=== PATIENT | female | born 1945 | race Caucasian/White ===

== ENCOUNTER 2020-03-16 09:50 | Emergency (ER) | payer MEDICARE, BC ==
--- NOTE | 2020-03-16 10:39 | EDM.PDOC ---
ED HPI GENERAL MEDICAL PROBLEM - General Chief Complaint: General Stated Complaint: FALL Time Seen by Provider: 03/16/20 09:50 Source of Information: Reports: EMS, EMS Notes Reviewed History Limitations: Reports: Altered Mental Status (pt has dementia and is a poor historian per EMS and nursing personnel ) - History of Present Illness INITIAL COMMENTS - FREE TEXT/NARRATIVE: Patient comes into the emergency department via EMS after sustaining a fall at assisted living. Patient is a resident at the local assisted living and was found to be lying on the ground by staff members this morning. It is unknown amount of time the patient was laying on the ground however they did notice that she had a large hematoma over her right eye. They ended up calling EMS for further evaluation investigation. Nursing personnel on scene state that the patient's cognition is at her baseline and they did not feel that her cognition was of any different however the significant amount of facial trauma was concerning. The patient smiles and nods and answers questions but not appropriate at times. Patient denies any pain or concerns. Patient does not elicit any pain facial symptoms when assessing. She states she has been healthy and has not had any COVID-19 symptoms. Nursing personnel state that they do regularly testing and she has not tested positive nor has she been around any other individuals that have been positive Onset: Sudden Quality: Reports: Other Improves with: Reports: None Worsens with: Reports: None Context: Reports: Trauma Associated Symptoms: Reports: No Other Symptoms Left Head Pain Score (Numeric/FACES): 5 ED ROS GENERAL - Review of Systems Review Of Systems: Unable To Obtain Reason Not Obtained: unsure if history presented via patient is accurate Constitutional: Reports: No Symptoms HEENT: Reports: No Symptoms Respiratory: Reports: No Symptoms Cardiovascular: Reports: No Symptoms Endocrine: Reports: No Symptoms GI/Abdominal: Reports: No Symptoms : Reports: No Symptoms Musculoskeletal: Reports: No Symptoms Skin: Reports: No Symptoms Neurological: Reports: No Symptoms Psychiatric: Reports: No Symptoms Hematologic/Lymphatic: Reports: No Symptoms Immunologic: Reports: No Symptoms ED EXAM, GENERAL - Physical Exam Exam: See Below Exam Limited By: No Limitations General Appearance: Alert, WD/WN, No Apparent Distress Eye Exam: Right Eye: Abnormal Pupil (unable to assess due to eye swelling), EOMI (unable to assess due to eye swelling), PERRL (unable to assess due to eye swelling) Ears: Normal External Exam, Normal Canal, Hearing Grossly Normal, Normal TMs Nose: Normal Inspection, Normal Mucosa Throat/Mouth: Normal Inspection, Normal Lips, Normal Teeth, No Airway Compromise Head: Atraumatic, Normocephalic Neck: Normal Inspection, Supple, Non-Tender, Full Range of Motion Respiratory/Chest: No Respiratory Distress, Lungs Clear, Normal Breath Sounds, No Accessory Muscle Use, Chest Non-Tender Cardiovascular: Normal Peripheral Pulses, Regular Rate, Rhythm Peripheral Pulses: 4+: Radial (L), Radial (R), Dorsalis Pedis (L), Dorsalis Pedis (R) GI/Abdominal: Normal Bowel Sounds, Soft, Non-Tender, No Abnormal Bruit Back Exam: Normal Inspection, Full Range of Motion Extremities: Normal Inspection, Normal Range of Motion, Non-Tender, No Pedal Edema, Normal Capillary Refill Neurological: Alert, CN II-XII Intact Psychiatric: Normal Affect, Normal Mood Skin Exam: Warm, Dry, Intact, Normal Color Course - Vital Signs Last Recorded V/S: Last Vital Signs Temp 37.2 C 03/16/20 10:00 Pulse 94 03/16/20 10:00 Resp 16 03/16/20 10:00 BP 151/89 H 03/16/20 10:00 Pulse Ox 99 03/16/20 10:00 - Orders/Labs/Meds Orders: Active Orders 24 hr Category Date Time Status COMPREHENSIVE METABOLIC PN,CMP [CHEM] Stat Lab 03/16/20 10:48 Received CREATINE KINASE,CK [CHEM] Stat Lab 03/16/20 10:48 Received PRO B-TYPE NATRIUR PEPT,BNPPRO [CHEM] Stat Lab 03/16/20 10:48 Received TROPONIN I [CHEM] Stat Lab 03/16/20 10:48 Received Labs: Laboratory Tests 03/16/20 03/16/20 Range/Units 10:48 10:48 WBC 6.6 (4.0-10.0) x10^3/uL RBC 4.04 (4.00-5.50) x10^6/uL Hgb 12.2 (12.0-16.0) g/dL Hct 36.3 (33.0-47.0) % MCV 89.9 (78.0-93.0) fL MCH 30.2 (26.0-32.0) pg MCHC 33.6 (32.0-36.0) g/dL RDW Coeff of Romero 13.7 (10.0-15.0) % Plt Count 188 (130-400) x10^3/uL Neut % (Auto) 78.7 (50.0-80.0) % Lymph % (Auto) 12.5 L (25.0-50.0) % [place] % (Auto) 8.6 (2.0-11.0) % Eos % (Auto) 0.2 (0.0-4.0) % Baso % (Auto) 0.0 L (0.2-1.2) % PT 9.9 (9.5-12.3) SEC INR 0.9 L (2.0-3.5) Departure - Departure Time of Disposition: 11:35 Disposition: Home, Self-Care 01 Condition: Good Clinical Impression: Fall Qualifiers: Encounter type: initial encounter Qualified Code(s): W19.XXXA - Unspecified fall, initial encounter - Discharge Information *PRESCRIPTION DRUG MONITORING PROGRAM REVIEWED*: Not Applicable *COPY OF PRESCRIPTION DRUG MONITORING REPORT IN PATIENT DON: Not Applicable Instructions: Fall Prevention in the Home, Adult, [id number] Referrals: Kristal Baez MD [Primary Care Provider] - Forms: ED Department Discharge Additional Instructions: 1. rest 2. increase your water intake 3. Continue all at home medications 4. Activity and diet as tolerated 5. Can take over the counter Tylenol for any pain or discomfort 6. Follow up with PCP if symptoms continue, return, or progress 7. Call with any questions or concerns Sepsis Event Note (ED) - Focused Exam Vital Signs: Vital Signs Temp Pulse Resp BP Pulse Ox 03/16/20 10:00 37.2 C 94 16 151/89 H 99 - My Orders Last 24 Hours: My Active Orders 03/16/20 10:48 COMPREHENSIVE METABOLIC PN,CMP [CHEM] Stat CREATINE KINASE,CK [CHEM] Stat PRO B-TYPE NATRIUR PEPT,BNPPRO [CHEM] Stat TROPONIN I [CHEM] Stat - Assessment/Plan Last 24 Hours: My Active Orders 03/16/20 10:48 COMPREHENSIVE METABOLIC PN,CMP [CHEM] Stat CREATINE KINASE,CK [CHEM] Stat PRO B-TYPE NATRIUR PEPT,BNPPRO [CHEM] Stat TROPONIN I [CHEM] Stat Assessment:: 1. fall Plan: 1. CT- head completed in the emergency department results reviewed with the patient 2. Ice Applied to the affected limb 3. Labs completed in the ER 4. Education regarding splinting, activity, [id number] medications, and follow-up care provided. 5. All questions and concerns addressed with the patient prior to discharge
--- NOTE | 2020-03-16 10:56 | CT ---
[id number] CT/CT Head WO IV EXAM: CT Head WO IV CLINICAL DATA: FALL. COMPARISON STUDY: None FINDINGS: No intracranial hemorrhage, extra-axial fluid collection, mass, or acute ischemia. Generalized parenchymal atrophy with scattered areas of nonspecific white matter disease, commonly seen as sequela of chronic microvascular ischemia. Large right frontal and periorbital hematoma without underlying fracture. Paranasal sinuses and mastoid air cells are clear. IMPRESSION: No acute intracranial findings. Anthony Talamantes DO 03/16/20 1058 Thank you for allowing us to participate in the care of your patient.
[2020-03-16 11:22] LABS: CHLORIDE,CL 98 mmol/L (98-107); SODIUM,NA 135 mmol/L (136-145)
[2020-03-16 11:38] LABS: ANION GAP 15.6 mmol/L (10-20)
== END 2020-03-16 11:50 | disposition home or self-care (01) ==
LOC: VM.ED 09:50
DX: R41.82 Altered mental status, unspecified (principal); R51.9 Headache, unspecified; W19.XXXA Unspecified fall, initial encounter; Y92.098 Other place in other non-institutional residence as the place of occurrence of the external cause
CPT/HCPCS: 36415; 70450; 80053; 82550; 83880; 84484; 85025; 85610; 99283; 99284-25

== ENCOUNTER 2020-03-16 21:09 | Inpatient (IN) | payer MEDICARE, BC ==
[2020-03-16] MEDS ORDERED: Sodium Chloride 0.9% 1,000 ML IV ONE (21:17)
--- NOTE | 2020-03-16 21:45 | EDM.PDOC ---
ED HPI GENERAL MEDICAL PROBLEM - General Chief Complaint: General Stated Complaint: UNABLE TO WALK,STAND Time Seen by Provider: 03/16/20 21:09 Source of Information: Reports: Patient History Limitations: Reports: Altered Mental Status - History of Present Illness INITIAL COMMENTS - FREE TEXT/NARRATIVE: Patient comes into the emergency department via EMS with concerns of decreased alertness and inability to walk or ambulate. Patient was in the emergency department earlier today after sustaining a fall with unknown amount of downtime. Patient was found to be ambulatory talking upon discharge no injuries were delineated at the emergency visit earlier other than a large hematoma over the right eye. Nursing staff stated this evening when they went to check on her they found that she was unable to ambulate she was sitting in a chair and had increased amount of confusion and alertness compared to her normal baseline confusion related to her dementia. They also state that she was unable to stand up and had tremors. They were more concerned with her decrease in alertness and inability to ambulate on her own as she was doing earlier in the day they found. Patient is a poor historian and does not provide much information upon arrival to the emergency department. Patient does grimace and pain when transferring from the ambulance cot to the bed. Patient does not answer questions appropriate does follow some commands at times. And will answer some questions but is not reliable or consistent. Onset: Unknown/Unsure Improves with: Reports: None Worsens with: Reports: None Associated Symptoms: Reports: Confusion - Related Data Allergies Allergy/AdvReac Type Severity Reaction Status Date / Time hydroxychloroquine Allergy Hives Verified 03/16/20 12:05 [From Plaquenil] nickel Allergy Cannot Verified 03/16/20 12:05 Remember Home Meds: Home Meds Albuterol [Proventil HFA] 6.7 gm INH Q6HR 03/16/20 [History] Aspirin 81 mg PO DAILY 03/16/20 [History] Benzonatate 200 mg PO TID 03/16/20 [History] Calc/D3/Mag/Zn/[place] [Calcium 600 MG Plus Vit D] 1 tab PO BID 03/16/20 [History] Lactobacillus Combination No.4 [Probiotic] 1 each PO DAILY 03/16/20 [History] Latanoprost/Pf [Latanoprost 0.005% Eye Drop] 7.5 ml OP BEDTIME 03/16/20 [History] Lidocaine [Lidocaine Pain Relief] 1 each TP DAILY 03/16/20 [History] Loperamide [Imodium AD] 2 mg PO PRN 03/16/20 [History] Meloxicam [Mobic] 15 mg PO DAILY 03/16/20 [History] Multivitamin [Multivitamins] 1 tab PO DAILY 03/16/20 [History] atorvaSTATin [Lipitor] 40 mg PO BEDTIME 03/16/20 [History] calcium polycarbophiL [Fibercon] 625 mg PO BID 03/16/20 [History] hydrOXYzine HCL [Atarax] 25 mg PO BEDTIME 03/16/20 [History] Past Medical History Psychiatric History: Reports: Dementia ED ROS GENERAL - Review of Systems Review Of Systems: Unable To Obtain Reason Not Obtained: confusion ED EXAM, GENERAL - Physical Exam Exam: See Below Exam Limited By: Language Barrier General Appearance: Alert Eye Exam: Bilateral Eye: PERRL, Other (right eye hematoma with moderate ) Nose: Normal Inspection, Normal Mucosa Throat/Mouth: Normal Inspection, Normal Lips, Normal Gums, No Airway Compromise Head: Atraumatic, Facial Swelling (right eye moderate hematoma around orbit. older bruising on front scalp with green and yellowish color noted ) Neck: Normal Inspection, Supple, Non-Tender Respiratory/Chest: No Respiratory Distress, Lungs Clear, Normal Breath Sounds, No Accessory Muscle Use, Chest Non-Tender Cardiovascular: Normal Peripheral Pulses, Regular Rate, Rhythm, No Edema GI/Abdominal: Normal Bowel Sounds, Soft, Rebound, Tender (Female) Exam: Deferred Rectal (Female) Exam: Deferred Back Exam: Normal Inspection, Full Range of Motion Extremities: Normal Inspection, Normal Range of Motion, Non-Tender, Normal Capillary Refill, Other (knee bruising/skin break down bilateral ) Neurological: Alert Psychiatric: Normal Affect, Normal Mood Skin Exam: Warm, Dry, Intact, Normal Color Lymphatic: No Adenopathy Course - Orders/Labs/Meds Orders: Active Orders 24 hr Category Date Time Status EKG Documentation Completion [RC] STAT Care 03/16/20 21:14 Active Abdomen Pelvis wo Cont [CT] Stat Exams 03/16/20 21:15 Taken Head wo Cont [CT] Stat Exams 03/16/20 21:15 Ordered UA RFX ESTEBAN AND CULT IF INDIC [URIN] Stat Lab 03/16/20 21:54 Ordered Labs: Laboratory Tests 03/16/20 03/16/20 Range/Units 21:29 21:29 WBC 5.7 (4.0-10.0) x10^3/uL RBC 3.68 L (4.00-5.50) x10^6/uL Hgb 11.1 L (12.0-16.0) g/dL Hct 33.4 (33.0-47.0) % MCV 90.8 (78.0-93.0) fL MCH 30.2 (26.0-32.0) pg MCHC 33.2 (32.0-36.0) g/dL RDW Coeff of Romero 14.1 (10.0-15.0) % Plt Count 199 (130-400) x10^3/uL Neut % (Auto) 61.1 (50.0-80.0) % Lymph % (Auto) 27.8 (25.0-50.0) % [place] % (Auto) 10.9 (2.0-11.0) % Eos % (Auto) 0.0 (0.0-4.0) % Baso % (Auto) 0.2 (0.2-1.2) % Sodium 135 L (136-145) mmol/L Potassium 3.8 (3.5-5.1) mmol/L Chloride 99 (98-107) mmol/L Carbon Dioxide 25 (21-32) mmol/L Anion Gap 14.8 (10-20) mmol/L BUN 28 H (7-18) mg/dL Creatinine 2.4 H (0.55-1.02) mg/dL Est Cr Clr Drug Dosing TNP Estimated GFR (MDRD) 20 Glucose 119 H (74-106) mg/dL Calcium 9.3 (8.5-10.1) mg/dL Corrected Calcium 9.46 (8.5-10.1) mg/dL Total Bilirubin 0.3 (0.2-1.0) mg/dL AST 45 H (15-37) U/L ALT 65 H (14-59) U/L Alkaline Phosphatase 86 (46-116) U/L Creatine Kinase 377 H* (26-192) U/L Total Protein 7.7 (6.4-8.2) g/dL Albumin 3.8 (3.4-5.0) g/dL Globulin 3.9 Albumin/Globulin Ratio 0.97 Meds: Medications Discontinued Medications Generic Name Dose Route Start Last Admin Trade Name Montrellq PRN Reason Stop Dose Admin Sodium Chloride 1,000 mls @ 999 mls/hr 03/16/20 21:17 03/16/20 21:20 Normal Saline IV 03/16/20 22:17 999 mls/hr ONETIME ONE Administration Lorazepam 1 mg 03/16/20 21:47 03/16/20 21:55 Ativan IVPUSH 03/16/20 21:48 1 mg STAT ONE Administration Departure - Departure Time of Disposition: 22:40 Disposition: Refer to Observation Condition: Good Clinical Impression: Confusion Altered mental status Qualifiers: Altered mental status type: unspecified Qualified Code(s): R41.82 - Altered mental status, unspecified Fall Qualifiers: Encounter type: initial encounter Qualified Code(s): W19.XXXA - Unspecified fall, initial encounter - Discharge Information *PRESCRIPTION DRUG MONITORING PROGRAM REVIEWED*: Not Applicable *COPY OF PRESCRIPTION DRUG MONITORING REPORT IN PATIENT DON: Not Applicable Referrals: Kristal Baez MD [Primary Care Provider] - Forms: ED Department Discharge - My Orders Last 24 Hours: My Active Orders 03/16/20 21:14 EKG Documentation Completion [RC] STAT 03/16/20 21:15 Abdomen Pelvis wo Cont [CT] Stat Head wo Cont [CT] Stat 03/16/20 21:54 UA RFX ESTEBAN AND CULT IF INDIC [URIN] Stat - Assessment/Plan Admission H&P: Please use this note as an admission H&P Last 24 Hours: My Active Orders 03/16/20 21:14 EKG Documentation Completion [RC] STAT 03/16/20 21:15 Abdomen Pelvis wo Cont [CT] Stat Head wo Cont [CT] Stat 03/16/20 21:54 UA RFX ESTEBAN AND CULT IF INDIC [URIN] Stat Assessment:: 1. altered mental status from baseline 2. gait disturbance Plan: 1. Labs completed in the ER. Results reviewed with the patient 2. CT scan completed in the ER. Results reviewed with the patient 3. Ativan given prior to CT for the patient was unable to hold still or follow commands to complete testing 4. UA/UC to be completed when able. 5. EKG completed in ER. 6. 1 L Normal saline 7. Consultation completed with Dr. Porter. Will admit patient tonight as observation and Dr. Porter will assume care in the am. 8. Patient will be transferred to a higher level of care needing further medical and/or surgical interventions 9. Patient and nursing staff was updated regarding the plan of care
[2020-03-16] MEDS ORDERED: LORazepam 2 MG/ML SDV IVPUSH ONE (21:47)
[2020-03-16 22:05] LABS: CHLORIDE,CL 99 mmol/L (98-107); SODIUM,NA 135 mmol/L (136-145)
[2020-03-16 22:06] LABS: ANION GAP 14.8 mmol/L (10-20)
[2020-03-16] MEDS ORDERED: Ondansetron 4 MG/2 ML SDV IV PRN (22:52)
[2020-03-17] MEDS ORDERED: ALBUTEROL INH SCH
[2020-03-17] MEDS: Acetaminophen 325 MG Tab PO PRN ×3 (05:00→20:45)
[2020-03-17] MEDS: Albuterol HFA 18 Gm Inhaler INH SCH ×4 (05:04→18:00)
[2020-03-17] MEDS ORDERED: Meloxicam 7.5 MG Tab PO SCH (08:00)
[2020-03-17] MEDS: Lactobacillus Rhamnosus GG (Probiotic) Cap PO SCH (08:40)
[2020-03-17] MEDS: Aspirin 81 MG Tab.Chew PO SCH (08:41)
[2020-03-17] MEDS: Multivitamins with Iron/Calcium/Folic Acid/Minerals Tab PO SCH (08:42)
[2020-03-17] MEDS: Benzonatate 100 MG Cap PO SCH ×3 (08:42→20:07)
[2020-03-17] MEDS: Calcium Carbonate/Vitamin D3 1250 MG-200 Unit Tab PO SCH ×2 (08:42→20:06)
[2020-03-17] MEDS: Calcium Polycarbophil 625 MG Tab PO SCH ×2 (08:42→20:46)
[2020-03-17 09:33] LABS: CHLORIDE,CL 103 mmol/L (98-107); SODIUM,NA 137 mmol/L (136-145)
[2020-03-17 09:38] LABS: ANION GAP 13.9 mmol/L (10-20)
[2020-03-17] MEDS: Ascorbic Acid 500 MG Tab PO SCH ×2 (11:18→20:16)
[2020-03-17] MEDS: Cholecalciferol (Vitamin D3) 10 MCG Tab PO SCH (11:18)
[2020-03-17] MEDS: Zinc (Zinc Gluconate) 50 MG Tab PO SCH (11:18)
[2020-03-17] MEDS: cefTRIAXone 1 GM Vial IVPUSH SCH (17:50)
--- NOTE | 2020-03-17 18:21 | PN ---
Progress Note for AURORA HANSON Date: 03/17/2020 Room #: VM.206 SUBJECTIVE: This is hospital day #2 on a 74-year-old readmitted to the ER last evening after she had been in the morning, found down in her apartment at [facility]. She had a previous ER evaluation during the day. It was felt that she was safe to return home. She normally walks all over, but does have memory loss from dementia. Now, she was too weak to even stand when someone checked on her. They thought she had increased confusion and decreased level of consciousness as well. They also felt she was having some tremors. She had not been coughing or having any fevers. However, there is an outbreak of COVID there and her COVID test this evening was positive in the ER. The patient also had a UA ordered, but it has not been completed yet. Her CK level did go up from 377 to 391. Her creatinine which was 1.5 when she was here earlier today did go up to 2.4. She got some fluid in the ER. It is down to 1.8 today. Despite her COVID diagnosis, the patient is oxygenating on room air. She is not responding a lot to questions, but does answer a few with yes or no. She denies that she is in any pain or having trouble seeing. She was able to take her pills this morning, but had some trouble swallowing thin liquids. OBJECTIVE: Vital Signs: Her temperature is 98.9, pulse 94, blood pressure 129/51, respiratory rate 18, and O2 of 100% on room air. General: She is in no acute distress. Heart: Regular rate and rhythm. S1, S2 without murmur. Lungs: Lung sounds are clear to auscultation bilaterally without crackles or wheezes. Abdomen: Positive bowel sounds. It is soft, nontender. Extremities: Warm and dry. No edema. She does have some bruising on her knee. She has significant bruising over her forehead and right eye is swollen shut, but she is able to open it, move her eye. Pupils are reactive. DIAGNOSTIC DATA: Lab work this morning did show her white count normal at 4.7, hemoglobin 10.7, platelets 155. Sodium 137, potassium 3.9, chloride 103, bicarb 24, BUN 29, creatinine 1.8. Again, CK 391, calcium 8.6. UA showed 30 to 40 wbc's. SARS testing again negative. Her head CT did show no orbital fractures. No acute intracranial bleeding. Abdominal CT was also obtained distended GB no stones bases of the lung so infiltrates probably viral. ASSESSMENT: 1. Fall, found down in her apartment with mild rhabdomyolysis and likely a post concussion syndrome. The patient had been admitted for observation. Given her urinary tract infection and COVID-19 infection, I will keep her on acute cares. Dr. Baez to resume care tomorrow. We will get physical therapy, speech therapy, social security specialist, and OT involved. Currently, her head CTs are not showing any urgent worrisome findings. We will repeat scans if she has any deterioration in her mental status. I am going to continue her aspirin, but hold her Mobic. 2. COVID-19 infection. She has been afebrile. She is not requiring oxygen. Daughter did ask if it could be a false-positive, however, that could be the source of her weakness. There has been an outbreak at her facility. She has no indications for any steroids or remdesivir currently. We will continue to monitor. I will repeat lab work tomorrow. 3. [id number] renal failure. Her baseline creatinine from recent lab work was 0.8. Given her COVID-19 diagnosis, I am not going to give her further fluids. I will hold her NSAID and I will repeat tomorrow. 4. Known dementia. The patient will continue her home medications. 5. Reported history of diarrhea and incontinence. So far, the patient has not had any issues. 6. Mild rhabdomyolysis. She did receive IV fluids. We will repeat a CK tomorrow. 7. Mild anemia. There are no acute signs of bleeding. Her last hemoglobin was normal at 12. 8. Hyperlipidemia. Given her elevated CK, I am going to hold her statin. 9. Rheumatoid arthritis. She is not currently complaining of any joint pain. PLAN: The patient will continue with hospital treatments with acute care. We will get [employer] involved and monitor her lab work. We will adjust our treatments if needed for the COVID-19. Otherwise for now, I will start her on the vitamins. For DVT prophylaxis, I am starting SCDs. MKA: 03/17/2020 17:52:29 MODL: 03/17/2020 18:15:55 /[id number] KELLEY
[2020-03-17] MEDS ORDERED: Latanoprost 0.005% Ophth Soln 2.5 ML Bottle EYEBOTH SCH (20:00)
[2020-03-17] MEDS ORDERED: atorvaSTATin 40 MG Tab PO SCH (20:00)
[2020-03-17] MEDS: hydrOXYzine HCl 25 MG Tab PO SCH (20:06)
[2020-03-18] MEDS: Albuterol HFA 18 Gm Inhaler INH SCH ×2 (07:17→07:18)
[2020-03-18 07:56] LABS: CHLORIDE,CL 104 mmol/L (98-107); SODIUM,NA 138 mmol/L (136-145)
[2020-03-18 07:57] LABS: ANION GAP 13.7 mmol/L (10-20)
[2020-03-18] MEDS ORDERED: Latanoprost 0.005% Ophth Soln 2.5 ML Bottle EYEBOTH SCH (08:51)
[2020-03-18] MEDS ORDERED: Sodium Chloride 0.9% 10 ML Syringe FLUSH PRN (08:52)
[2020-03-18] MEDS: cefTRIAXone 1 GM Vial IVPUSH SCH (08:54)
[2020-03-18] MEDS: Ascorbic Acid 500 MG Tab PO SCH ×2 (08:56→20:40)
[2020-03-18] MEDS: Cholecalciferol (Vitamin D3) 10 MCG Tab PO SCH (08:56)
[2020-03-18] MEDS: Multivitamins with Iron/Calcium/Folic Acid/Minerals Tab PO SCH (08:56)
[2020-03-18] MEDS: Calcium Polycarbophil 625 MG Tab PO SCH ×2 (08:57→20:40)
[2020-03-18] MEDS: Zinc (Zinc Gluconate) 50 MG Tab PO SCH (08:57)
[2020-03-18] MEDS: Calcium Carbonate/Vitamin D3 1250 MG-200 Unit Tab PO SCH ×2 (08:57→20:40)
[2020-03-18] MEDS: Lactobacillus Rhamnosus GG (Probiotic) Cap PO SCH (08:57)
[2020-03-18] MEDS: Benzonatate 100 MG Cap PO SCH (08:57)
[2020-03-18] MEDS: Aspirin 81 MG Tab.Chew PO SCH (08:57)
[2020-03-18] MEDS: Acetaminophen 325 MG Tab PO PRN ×2 (08:57→18:03)
[2020-03-18] MEDS ORDERED: Benzonatate 100 MG Cap PO PRN (09:15)
--- NOTE | 2020-03-18 12:38 | CT ---
[id number] CT/CT Head WO IV EXAM: CT Head WO IV CLINICAL DATA: FALL. COMPARISON STUDY: None FINDINGS: No intracranial hemorrhage, extra-axial fluid collection, mass, or acute ischemia. Generalized parenchymal atrophy with scattered areas of nonspecific white matter disease, commonly seen as sequela of chronic microvascular ischemia. Large right frontal and periorbital hematoma without underlying fracture. Paranasal sinuses and mastoid air cells are clear. IMPRESSION: No acute intracranial findings. Anthony Talamantes DO 03/18/20 1257 Thank you for allowing us to participate in the care of your patient.
--- NOTE | 2020-03-18 12:38 | CT ---
[id number] CT/CT Abdomen Pelvis WO IV EXAM: CT Abdomen Pelvis WO IV CLINICAL DATA: CONFUSION. COMPARISON STUDY: None. FINDINGS: Scattered groundglass densities seen at the lung bases bilaterally. Cardiac calcification. The gallbladder is distended. No radiodense stones are identified. No surrounding inflammatory change. The liver, spleen, pancreas, adrenal glands and kidneys are unremarkable. No hydronephrosis or hydroureter. No radiodense renal calculi identified. No bowel obstruction or inflammation. A few scattered colonic diverticula. No evidence of acute diverticulitis. No lymphadenopathy, free fluid, or pneumoperitoneum. Scattered changes of spondylosis the spine. No fracture or osseous lesion. IMPRESSION: 1. Scattered groundglass densities within the visualized lung bases bilaterally. Findings are likely infectious/inflammatory in nature consistent with viral pneumonia. 2. Distended gallbladder without radiodense stones identified. No significant surrounding inflammation. Anthony Talamantes DO 03/18/20 1238 Thank you for allowing us to participate in the care of your patient.
--- NOTE | 2020-03-18 12:49 | PCM.PN ---
- General Info Date of Service: 03/18/20 Subjective Update: 74 yo female hospital day #3 admitted for a MOE in the setting of a severe concussion. Patient is reportedly more alert today but is still slow to answer questions. Does answer some yes or no questions, although her response times are significantly longer than her baseline. She denies any concerns this morning. She states she does not have a headache. ROS otherwise negative. - Review of Systems General: Reports: No Symptoms HEENT: Reports: No Symptoms Pulmonary: Reports: No Symptoms Cardiovascular: Reports: No Symptoms Gastrointestinal: Reports: No Symptoms Genitourinary: Reports: No Symptoms Musculoskeletal: Reports: No Symptoms Skin: Reports: No Symptoms Neurological: Reports: Confusion. Denies: Headache - Patient Data Vitals - Most Recent: Last Vital Signs Temp 36.9 C 03/18/20 09:42 Pulse 86 03/18/20 09:42 Resp 18 03/18/20 09:42 BP 136/61 03/18/20 09:42 Pulse Ox 100 03/18/20 09:42 Weight - Most Recent: 73.709 kg I&O - Last 24 Hours: Intake & Output 03/17/20 03/18/20 03/18/20 22:59 06:59 14:59 Intake Total 300 120 Balance 300 120 Lab Results Last 24 Hours: Laboratory Results - last 24 hr 03/17/20 03/18/20 03/18/20 Range/Units 13:30 07:10 07:10 WBC 4.9 (4.0-10.0) x10^3/uL RBC 3.70 L (4.00-5.50) x10^6/uL Hgb 11.0 L (12.0-16.0) g/dL Hct 33.5 (33.0-47.0) % MCV 90.5 (78.0-93.0) fL MCH 29.7 (26.0-32.0) pg MCHC 32.8 (32.0-36.0) g/dL RDW Coeff of Romero 14.4 (10.0-15.0) % Plt Count 149 (130-400) x10^3/uL Neut % (Auto) 57.2 (50.0-80.0) % Lymph % (Auto) 29.4 (25.0-50.0) % Dent % (Auto) 12.8 H (2.0-11.0) % Eos % (Auto) 0.4 (0.0-4.0) % Baso % (Auto) 0.2 (0.2-1.2) % Sodium 138 (136-145) mmol/L Potassium 3.7 (3.5-5.1) mmol/L Chloride 104 (98-107) mmol/L Carbon Dioxide 24 (21-32) mmol/L Anion Gap 13.7 (10-20) mmol/L BUN 27 H (7-18) mg/dL Creatinine 1.4 H (0.55-1.02) mg/dL Est Cr Clr Drug Dosing TNP Estimated GFR (MDRD) 37 Glucose 101 (74-106) mg/dL Calcium 9.1 (8.5-10.1) mg/dL Corrected Calcium 9.50 (8.5-10.1) mg/dL Total Bilirubin 0.3 (0.2-1.0) mg/dL AST 49 H (15-37) U/L ALT 57 (14-59) U/L Alkaline Phosphatase 79 (46-116) U/L Creatine Kinase (26-192) U/L Total Protein 7.3 (6.4-8.2) g/dL Albumin 3.5 (3.4-5.0) g/dL Globulin 3.8 Albumin/Globulin Ratio 0.92 Urine Color Yellow (YELLOW) Urine Appearance Turbid H (CLEAR) Urine pH 5.5 (5.0-8.0) Ur Specific [place] 1.025 Urine Protein 30 H (NEGATIVE) mg/dL Urine Glucose (UA) Negative (NEGATIVE) mg/dL Urine Ketones Negative (NEGATIVE) mg/dL Urine Occult Blood Small H (NEGATIVE) Urine Nitrite Negative (NEGATIVE) Urine Bilirubin Negative (NEGATIVE) Urine Urobilinogen 0.2 (0.2) EU/dL Ur Leukocyte Esterase Moderate H (NEGATIVE) U Hyaline Cast (Auto) Few Urine RBC 0-5 (NOT SEEN) /HPF Urine WBC 30-40 H (NOT SEEN) /HPF Ur Squamous Epith Cells Few H (NEGATIVE) /HPF Amorphous Sediment Few Urine Bacteria Many H (NEGATIVE) /HPF Granular Casts (Auto) Few Urine Mucus Few H (NEGATIVE) /LPF 11/23/20 Range/Units 07:10 WBC (4.0-10.0) x10^3/uL RBC (4.00-5.50) x10^6/uL Hgb (12.0-16.0) g/dL Hct (33.0-47.0) % MCV (78.0-93.0) fL MCH (26.0-32.0) pg MCHC (32.0-36.0) g/dL RDW Coeff of Romero (10.0-15.0) % Plt Count (130-400) x10^3/uL Neut % (Auto) (50.0-80.0) % Lymph % (Auto) (25.0-50.0) % Dent % (Auto) (2.0-11.0) % Eos % (Auto) (0.0-4.0) % Baso % (Auto) (0.2-1.2) % Sodium (136-145) mmol/L Potassium (3.5-5.1) mmol/L Chloride (98-107) mmol/L Carbon Dioxide (21-32) mmol/L Anion Gap (10-20) mmol/L BUN (7-18) mg/dL Creatinine (0.55-1.02) mg/dL Est Cr Clr Drug Dosing Estimated GFR (MDRD) Glucose (74-106) mg/dL Calcium (8.5-10.1) mg/dL Corrected Calcium (8.5-10.1) mg/dL Total Bilirubin (0.2-1.0) mg/dL AST (15-37) U/L ALT (14-59) U/L Alkaline Phosphatase (46-116) U/L Creatine Kinase 462 H* (26-192) U/L Total Protein (6.4-8.2) g/dL Albumin (3.4-5.0) g/dL Globulin Albumin/Globulin Ratio Urine Color (YELLOW) Urine Appearance (CLEAR) Urine pH (5.0-8.0) Ur Specific [place] Urine Protein (NEGATIVE) mg/dL Urine Glucose (UA) (NEGATIVE) mg/dL Urine Ketones (NEGATIVE) mg/dL Urine Occult Blood (NEGATIVE) Urine Nitrite (NEGATIVE) Urine Bilirubin (NEGATIVE) Urine Urobilinogen (0.2) EU/dL Ur Leukocyte Esterase (NEGATIVE) U Hyaline Cast (Auto) Urine RBC (NOT SEEN) /HPF Urine WBC (NOT SEEN) /HPF Ur Squamous Epith Cells (NEGATIVE) /HPF Amorphous Sediment Urine Bacteria (NEGATIVE) /HPF Granular Casts (Auto) Urine Mucus (NEGATIVE) /LPF [place] Results Last 24 Hours: Microbiology 03/17/20 13:30 Urine Culture - Preliminary Urine, Voided Gram Negative Rods Gram Negative Rods#2 Med Orders - Current: Current Medications Acetaminophen (Tylenol) 650 mg PO Q4H PRN PRN Reason: Pain (Mild 1-3)/fever Last Admin: 03/18/20 08:57 Dose: 650 mg Documented by: Albuterol (Ventolin Hfa) 0 gm INH Q6HRRT PRN PRN Reason: Shortness of Breath Ascorbic Acid (Vitamin C) 1,000 mg PO BID [facility] Last Admin: 03/18/20 08:56 Dose: 1,000 mg Documented by: Aspirin (Aspirin) 81 mg PO DAILY [facility] Last Admin: 03/18/20 08:57 Dose: 81 mg Documented by: Benzonatate (Tessalon Perles) 200 mg PO TID PRN PRN Reason: cough Calcium Carbonate (Calcium Carbonate/Vitamin D 1250 Mg-200 Unit) 1 tab PO BID [facility] Last Admin: 03/18/20 08:57 Dose: 1 tab Documented by: Calcium Polycarbophil (Fibercon) 625 mg PO BID [facility] Last Admin: 03/18/20 08:57 Dose: 625 mg Documented by: Ceftriaxone Sodium (Rocephin) 1 gm IVPUSH DAILY [facility] Last Admin: 03/18/20 08:54 Dose: 1 gm Documented by: Cholecalciferol (Vitamin D3) 20 mcg PO DAILY [facility] Last Admin: 03/18/20 08:56 Dose: 20 mcg Documented by: Hydroxyzine HCl (Atarax) 25 mg PO BEDTIME [facility] Last Admin: 03/17/20 20:06 Dose: 25 mg Documented by: Lactobacillus Rhamnosus (Culturelle) 1 cap PO DAILY [facility] Last Admin: 03/18/20 08:57 Dose: 1 cap Documented by: Latanoprost (Xalatan 0.005% Ophth Soln) 0 ml EYEBOTH BEDTIME [facility] Multivitamins/Minerals (Thera M Plus) 1 tab PO DAILY [facility] Last Admin: 03/18/20 08:56 Dose: 1 tab Documented by: Ondansetron HCl (Zofran) 4 mg IV Q6H PRN PRN Reason: Nausea/Vomiting Sodium Chloride (Saline Flush) 10 ml FLUSH ASDIRECTED PRN PRN Reason: flush Zinc Gluconate (Zinc) 200 mg PO DAILY [facility] Last Admin: 03/18/20 08:57 Dose: 200 mg Documented by: Discontinued Medications Albuterol (Ventolin Hfa) 6.7 gm INH Q6HR [facility] Last Admin: 03/18/20 07:18 Dose: Not Given Documented by: Atorvastatin Calcium (Lipitor) 40 mg PO BEDTIME [facility] Benzonatate (Tessalon Perles) 200 mg PO TID [facility] Last Admin: 03/18/20 08:57 Dose: 200 mg Documented by: Sodium Chloride (Normal Saline) 1,000 mls @ 999 mls/hr IV ONETIME ONE Stop: 03/16/20 22:17 Last Admin: 03/16/20 21:20 Dose: 999 mls/hr Documented by: Latanoprost (Xalatan 0.005% Ophth Soln) 7.5 ml EYEBOTH BEDTIME [facility] Last Admin: 03/18/20 07:16 Dose: Not Given Documented by: Lorazepam (Ativan) 1 mg IVPUSH STAT ONE Stop: 03/16/20 21:48 Last Admin: 03/16/20 21:55 Dose: 1 mg Documented by: Meloxicam (Mobic) 15 mg PO DAILY [facility] Last Admin: 03/17/20 08:41 Dose: 15 mg Documented by: Non-Formulary Medication (Albuterol) 6.7 gm INH Q6HR [facility] Last Admin: 03/17/20 01:27 Dose: Not Given Documented by: - Exam General: Alert, Cooperative, No Acute Distress HEENT: Mucous Membr. Moist/[place] Neck: Supple, Trachea Midline, No Thyromegaly. No: Lymphadenopathy Lungs: Clear to Auscultation, Normal Respiratory Effort Cardiovascular: Regular Rate, Regular Rhythm, No Murmurs GI/Abdominal Exam: Normal Bowel Sounds, Soft, Non-Tender, No Organomegaly, No Distention, No Mass Extremities: Normal Inspection, Non-Tender, No Pedal Edema Peripheral Pulses: 2+: Radial (L), Radial (R) Skin: Warm, Dry, Ecchymosis (both les-orbital regions) Neurological: No New Focal Deficit Sepsis Event Note - Evaluation Sepsis Screening Result: No Definite Risk - Focused Exam Vital Signs: Vital Signs Temp Temp Temp Pulse Resp BP Pulse Ox 03/18/20 09:42 36.9 C 86 18 136/61 100 03/18/20 09:27 36.9 C 03/18/20 06:00 37.7 C 88 16 145/67 H 98 03/18/20 02:00 37.2 C 88 20 140/63 97 - Problem List & Annotations (1) Concussion SNOMED Code(s): 082725646 Code(s): S06.0X9A - CONCUSSION W LOSS OF CONSCIOUSNESS OF UNSP DURATION, INIT Status: Acute Current Visit: Yes Qualifiers: Encounter type: initial encounter Loss of consciousness presence/duration: with LOC of unspecified duration Qualified Code(s): S06.0X9A - Concussion with loss of consciousness of unspecified duration, initial encounter (2) Fall SNOMED Code(s): 7465002, 312670936 Code(s): W19.XXXA - UNSPECIFIED FALL, INITIAL ENCOUNTER Status: Acute Current Visit: Yes Qualifiers: Encounter type: initial encounter Qualified Code(s): W19.XXXA - Unspecified fall, initial encounter (3) Acute kidney injury SNOMED Code(s): 78594295, 04020530 Code(s): N17.9 - ACUTE KIDNEY FAILURE, UNSPECIFIED Status: Acute Current Visit: Yes (4) Rhabdomyolysis SNOMED Code(s): 527965290 Code(s): M62.82 - RHABDOMYOLYSIS Status: Acute Current Visit: Yes Qualifiers: Rhabdomyolysis type: non-traumatic Qualified Code(s): M62.82 - Rhabdomyolysis (5) UTI (urinary tract infection) SNOMED Code(s): 73945091 Code(s): N39.0 - URINARY TRACT INFECTION, SITE NOT SPECIFIED Status: Acute Current Visit: Yes Qualifiers: Urinary tract infection type: site unspecified Hematuria presence: without hematuria Qualified Code(s): N39.0 - Urinary tract infection, site not specified (6) COVID-19 SNOMED Code(s): 576312972 Code(s): U07.1 - COVID-19 Status: Acute Current Visit: Yes (7) Anemia SNOMED Code(s): 437240993 Code(s): D64.9 - ANEMIA, UNSPECIFIED Status: Acute Current Visit: Yes Qualifiers: Anemia type: unspecified type Qualified Code(s): D64.9 - Anemia, unspecified (8) Dementia SNOMED Code(s): 80927640 Code(s): F03.90 - UNSPECIFIED DEMENTIA WITHOUT BEHAVIORAL DISTURBANCE Status: Chronic Current Visit: Yes Qualifiers: Dementia type: unspecified type Dementia behavioral disturbance: without behavioral disturbance Qualified Code(s): F03.90 - Unspecified dementia without behavioral disturbance (9) Hyperlipidemia SNOMED Code(s): 91503668 Code(s): E78.5 - HYPERLIPIDEMIA, UNSPECIFIED Status: Chronic Current Visit: Yes Qualifiers: Hyperlipidemia type: unspecified Qualified Code(s): E78.5 - Hyperlipidemia, unspecified (10) Rheumatoid arthritis SNOMED Code(s): 33044932 Code(s): M06.9 - RHEUMATOID ARTHRITIS, UNSPECIFIED Status: Chronic Current Visit: Yes Qualifiers: Rheumatoid arthritis location: unspecified site Rheumatoid factor presence: unspecified presence Qualified Code(s): M06.9 - Rheumatoid arthritis, unspecified (11) Lumbar spinal stenosis SNOMED Code(s): 17161845 Code(s): M48.061 - SPINAL STENOSIS, LUMBAR REGION WITHOUT NEUROGENIC PREMA Status: Chronic Current Visit: Yes Qualifiers: Neurogenic claudication status: without neurogenic claudication Qualified Code(s): M48.061 - Spinal stenosis, lumbar region without neurogenic claudication - Problem List Review Problem List Initiated/Reviewed/Updated: Yes - My Orders Last 24 Hours: My Active Orders 03/18/20 08:52 Sodium Chloride 0.9% [Saline Flush] 10 ml FLUSH ASDIRECTED PRN 03/18/20 14:00 BASIC METABOLIC PANEL,BMP [CHEM] Routine CREATINE KINASE,CK [CHEM] Routine - Assessment Assessment:: 74 yo female hospital day #3 admitted with MOE following an unwitnessed fall at assisted living during which she did experience a concussion. Is slowly improving but still not eating/drinking much and not moving as well as is her baseline. - Plan Plan:: #1 Concussion #2 Fall - CT head negative x 2. So change in mentation likely related to a significant concussion. - Will only repeat her head CT if she has any other focal neurologic changes. - Otherwise, she is slowly improving in terms of her mentation. - PT/OT/case management services all consulted. #3 MOE #4 Rhabdomyolysis - Last outpatient creatinine was 0.8 in 2018 so her true baseline is unclear. - Regardless, increase to 2.4 on admission is clearly an acute kidney injury. Creatinine improved to 1.4 today. - CK slightly up from yesterday. - Will recheck lab this pm. - We are using caution with IV fluids in the setting of COVID-19. However, if her CK is further uptrending and/or her creatinine is up, will start gentle IV fluids to be continued overnight. - Patient can eat/drink ad rosi but is really not taking in much PO. Suspect her concussion is contributing to this; the timeline of when this will recover remains TBD. #5 UTI - Had a fever yesterday but that was within 24 hours of antibiotics. It is also unclear whether the fever is truly UTI related or if it would be related to COVID. - Continue ceftriaxone. - Urine culture is pending. Anticipate final report tomorrow at which time she will transition to oral antibiotics. #6 COVID-19 - Patient is not currently displaying any symptoms of COVID and her oxygen saturations remain normal. - Will continue to monitor closely. - As above, current cares include being judicious with IV fluids and having her on the vitamin D, vitamin C, and zinc regimen. - She does not currently meet criteria for remdesivir or dexamethasone but this will be reassessed on a daily basis. - Her daughter is her POA and has discussed with her other daughter as well. They are in agreement that the patient is DNR/DNI. They would potentially be open to other therapies as indicated. #7 Anemia - New and possibly related to above. - Will check daily while hospitalized. - Further work-up outpatient if persists. #8 Dementia #9 Hyperlipidemia #10 RA #11 Spinal stenosis - Her statin and meloxicam are held due to #3 and #4 as above. - Other home medications continued. Patient will remain on acute status today. If she does not require IV fluids and her urine culture results come back tomorrow, she may be prepared for d/c as soon as tomorrow. However, she is not really a candidate to return to [place] at this time and the care center is not taking any admissions due to COVID. Therefore, she may need to transition to swing bed in the interim. Case management is involved to assist. Code status is DNR/DNI. She is on SCD's for VTE prophylaxis. If still no evidence of decrease in hemoglobin or intracranial hemorrhage and patient remains on acute longer than tomorrow, will likely add lovenox as long as not prohibited by renal function.
[2020-03-18] MEDS ORDERED: Albuterol HFA 18 Gm Inhaler INH PRN (13:00)
[2020-03-18 14:26] LABS: CHLORIDE,CL 103 mmol/L (98-107); SODIUM,NA 137 mmol/L (136-145)
[2020-03-18 14:28] LABS: ANION GAP 11.9 mmol/L (10-20)
[2020-03-18] MEDS: hydrOXYzine HCl 25 MG Tab PO SCH (20:40)
[2020-03-19] MEDS: Acetaminophen 325 MG Tab PO PRN (01:34)
[2020-03-19 07:15] LABS: CHLORIDE,CL 103 mmol/L (98-107); SODIUM,NA 138 mmol/L (136-145)
[2020-03-19 07:34] LABS: ANION GAP 13.6 mmol/L (10-20)
[2020-03-19] MEDS: Calcium Polycarbophil 625 MG Tab PO SCH (08:03)
[2020-03-19] MEDS: Multivitamins with Iron/Calcium/Folic Acid/Minerals Tab PO SCH (08:03)
[2020-03-19] MEDS: Zinc (Zinc Gluconate) 50 MG Tab PO SCH (08:03)
[2020-03-19] MEDS: Ascorbic Acid 500 MG Tab PO SCH (08:03)
[2020-03-19] MEDS: Lactobacillus Rhamnosus GG (Probiotic) Cap PO SCH (08:03)
[2020-03-19] MEDS: Cholecalciferol (Vitamin D3) 10 MCG Tab PO SCH (08:04)
[2020-03-19] MEDS: Aspirin 81 MG Tab.Chew PO SCH (08:04)
[2020-03-19] MEDS: cefTRIAXone 1 GM Vial IVPUSH SCH (08:04)
[2020-03-19] MEDS: Calcium Carbonate/Vitamin D3 1250 MG-200 Unit Tab PO SCH (08:04)
--- NOTE | 2020-03-19 08:37 | PCM.DCSUM1 ---
Discharge Summary - Hospital Course Brief History: Ms. Stovall is a 74 yo female who was admitted for mild rhabdomyolysis and MOE after presenting to the ER for evaluation following a fall during which she also sustained a head injury. Diagnosis: Stroke: No - Discharge Data Discharge Date: 03/19/20 Discharge Disposition: DC/Tfer W/I Hosp To Swing 61 Condition: Fair - Referral to Home Health Primary Care Physician: Kristal Baez MD - Discharge Diagnosis/Problem(s) (1) Concussion SNOMED Code(s): 257464814 ICD Code: S06.0X9A - CONCUSSION W LOSS OF CONSCIOUSNESS OF UNSP DURATION, INIT Status: Acute Current Visit: Yes Qualifiers: Encounter type: initial encounter Loss of consciousness presence/duration: with LOC of unspecified duration Qualified Code(s): S06.0X9A - Concussion with loss of consciousness of unspecified duration, initial encounter (2) Fall SNOMED Code(s): 4385047, 945020732 ICD Code: W19.XXXA - UNSPECIFIED FALL, INITIAL ENCOUNTER Status: Acute Current Visit: Yes Qualifiers: Encounter type: initial encounter Qualified Code(s): W19.XXXA - Unspecified fall, initial encounter (3) Acute kidney injury SNOMED Code(s): 00239708, 92043449 ICD Code: N17.9 - ACUTE KIDNEY FAILURE, UNSPECIFIED Status: Acute Current Visit: Yes (4) Rhabdomyolysis SNOMED Code(s): 283558484 ICD Code: M62.82 - RHABDOMYOLYSIS Status: Acute Current Visit: Yes Qualifiers: Rhabdomyolysis type: non-traumatic Qualified Code(s): M62.82 - Rhabdomyolysis (5) UTI (urinary tract infection) SNOMED Code(s): 16719272 ICD Code: N39.0 - URINARY TRACT INFECTION, SITE NOT SPECIFIED Status: Acute Current Visit: Yes Qualifiers: Urinary tract infection type: site unspecified Hematuria presence: without hematuria Qualified Code(s): N39.0 - Urinary tract infection, site not specified (6) COVID-19 SNOMED Code(s): 435680283 ICD Code: U07.1 - COVID-19 Status: Acute Current Visit: Yes (7) Anemia SNOMED Code(s): 249488379 ICD Code: D64.9 - ANEMIA, UNSPECIFIED Status: Acute Current Visit: Yes Qualifiers: Anemia type: unspecified type Qualified Code(s): D64.9 - Anemia, unspecified (8) Dementia SNOMED Code(s): 27611364 ICD Code: F03.90 - UNSPECIFIED DEMENTIA WITHOUT BEHAVIORAL DISTURBANCE Status: Chronic Current Visit: Yes Qualifiers: Dementia type: unspecified type Dementia behavioral disturbance: without behavioral disturbance Qualified Code(s): F03.90 - Unspecified dementia without behavioral disturbance (9) Hyperlipidemia SNOMED Code(s): 97846249 ICD Code: E78.5 - HYPERLIPIDEMIA, UNSPECIFIED Status: Chronic Current Visit: Yes Qualifiers: Hyperlipidemia type: unspecified Qualified Code(s): E78.5 - Hyperlipidemia, unspecified (10) Rheumatoid arthritis SNOMED Code(s): 56077417 ICD Code: M06.9 - RHEUMATOID ARTHRITIS, UNSPECIFIED Status: Chronic Current Visit: Yes Qualifiers: Rheumatoid arthritis location: unspecified site Rheumatoid factor presence: unspecified presence Qualified Code(s): M06.9 - Rheumatoid arthritis, unspecified (11) Lumbar spinal stenosis SNOMED Code(s): 77848336 ICD Code: M48.061 - SPINAL STENOSIS, LUMBAR REGION WITHOUT NEUROGENIC PREMA Status: Chronic Current Visit: Yes Qualifiers: Neurogenic claudication status: without neurogenic claudication Qualified Code(s): M48.061 - Spinal stenosis, lumbar region without neurogenic claudication - Patient Summary/Data Operative Procedure(s) Performed: none Complications: none Consults: Consultations 03/17/20 10:33 Consult to Case Management/Shipwright Helper [CONS] Routine OT Evaluation and Treatment [CONS] Routine PT Evaluation and Treatment [CONS] Routine 03/17/20 11:35 Consult to Speech Language Pathology [INKING MACHINE TENDER Evaluation and Treatment] [CONS] Routine Labs Pending at D/C: none Recommended Follow-up Testing/Procedures: none Planned Operative Procedure(s) after DC: none Hospital Course: The patient was admitted and given IV fluids overnight hospital night #1. Her creatinine improved. Her CK remained stable during her hospitalization. Caution was used related to fluids given her incidental diagnosis of COVID in addition to the other admission diagnoses. Her rapid test was positive and her CT abdomen/pelvis did show some changes in the lower lungs bilaterally. She initially was not having symptoms but is just starting to have a cough in the past 24 hours. She denies any shortness of breath. No other COVID symptoms. She was initially very sleepy on admission, essentially not waking up at all. However, this has improved and she is at her baseline level of alertness this morning. She has still not been eating and drinking very well but this is improving as she has become more alert as well. She has not been on IV fluids for the past 2 days and creatinine has remained stable. She is on ceftriaxone for a UTI. Urine culture showing gram negative rods with final report expected today. Based on available information (negative CT, no leukocytosis, no significant fevers), this is likely a simple cystitis. Therefore, she really has completed antibiotics having gotten 3 days of ceftriaxone already; therefore, no further antibiotics will be continued. [facility]. She is not able to go back to [place] and will need to transition to the care center. However, they are not taking admissions at this time due to a COVID outbreak at the facility. Therefore, she will be transitioned in house to swing bed today under the COVID waiver given the reason she is not able to discharge to the care center is because of COVID. - Patient Instructions Diet: Usual Diet as Tolerated Activity: As Tolerated - Discharge Plan *PRESCRIPTION DRUG MONITORING PROGRAM REVIEWED*: Not Applicable *COPY OF PRESCRIPTION DRUG MONITORING REPORT IN PATIENT DON: Not Applicable Home Medications: Home Meds Albuterol [Proventil HFA] 2 inh PO Q6HR PRN 03/16/20 [History] Aspirin 81 mg PO DAILY 03/16/20 [History] Benzonatate 200 mg PO TID PRN 03/16/20 [History] Calc/D3/Mag/Zn/[place] [Calcium 600 MG Plus Vit D] 1 tab PO BID 03/16/20 [History] Lactobacillus Combination No.4 [Probiotic] 1 cap PO DAILY 03/16/20 [History] Latanoprost/Pf [Latanoprost 0.005% Eye Drop] 1 drop EYEBOTH BEDTIME 03/16/20 [History] Multivitamin [Multivitamins] 1 tab PO DAILY 03/16/20 [History] atorvaSTATin [Lipitor] 40 mg PO BEDTIME 03/16/20 [History] calcium polycarbophiL [Fibercon] 625 mg PO BID 03/16/20 [History] hydrOXYzine HCL [hydrOXYzine] 25 mg PO DAILY@1800 03/16/20 [History] Acetaminophen [Tylenol] 650 mg PO Q4H PRN tablet 03/19/20 [Rx] Ascorbic Acid [Vitamin C] 1,000 mg PO BID tablet 03/19/20 [Rx] Cholecalciferol (Vitamin D3) [Vitamin D3] 20 mcg PO DAILY tablet 03/19/20 [Rx] Zinc Gluconate [Zinc] 200 mg PO DAILY tablet 03/19/20 [Rx] Forms: ED Department Discharge Referrals: Kristal Baez MD [Primary Care Provider] - - Discharge Summary/Plan Comment DC Time >30 min.: No - General Info Date of Service: 03/19/20 Subjective Update: 74 yo female hospital day #4 admitted with mild MOE and rhabdomyolysis following a fall at the assisted living. The patient is much more alert today but still has trouble answering more complex questions. When asked yes or no questions, she is able to answer. She denies any headaches. She is moving her arms and legs equally. She denies pain anywhere else. She has not been eating well but is not having any swallowing issues. Nursing staff note that she has started coughing now in the past 24 hours. - Review of Systems General: Reports: No Symptoms HEENT: Reports: No Symptoms Pulmonary: Reports: No Symptoms Cardiovascular: Reports: No Symptoms Gastrointestinal: Reports: No Symptoms Genitourinary: Reports: No Symptoms Musculoskeletal: Reports: No Symptoms Skin: Reports: No Symptoms Neurological: Reports: No Symptoms - Patient Data Vitals - Most Recent: Last Vital Signs Temp 36.9 C 03/19/20 05:53 Pulse 98 03/19/20 05:53 Resp 16 03/19/20 05:53 BP 149/69 H 03/19/20 05:53 Pulse Ox 99 03/19/20 05:53 Weight - Most Recent: 73.709 kg I&O - Last 24 hours: Intake & Output 03/18/20 03/19/20 03/19/20 22:59 06:59 14:59 Intake Total 0 Balance 0 Lab Results - Last 24 hrs: Laboratory Results - last 24 hr 03/18/20 03/19/20 03/19/20 Range/Units 13:58 06:30 06:30 WBC 4.4 (4.0-10.0) x10^3/uL RBC 3.76 L (4.00-5.50) x10^6/uL Hgb 11.2 L (12.0-16.0) g/dL Hct 34.2 (33.0-47.0) % MCV 91.0 (78.0-93.0) fL MCH 29.8 (26.0-32.0) pg MCHC 32.7 (32.0-36.0) g/dL RDW Coeff of Romero 14.4 (10.0-15.0) % Plt Count 169 (130-400) x10^3/uL Neut % (Auto) 55.9 (50.0-80.0) % Lymph % (Auto) 30.5 (25.0-50.0) % [place] % (Auto) 13.4 H (2.0-11.0) % Eos % (Auto) 0.0 (0.0-4.0) % Baso % (Auto) 0.2 (0.2-1.2) % Sodium 137 138 (136-145) mmol/L Potassium 3.9 3.6 (3.5-5.1) mmol/L Chloride 103 103 (98-107) mmol/L Carbon Dioxide 26 25 (21-32) mmol/L Anion Gap 11.9 13.6 (10-20) mmol/L BUN 28 H 25 H (7-18) mg/dL Creatinine 1.5 H 1.4 H (0.55-1.02) mg/dL Est Cr Clr Drug Dosing TNP TNP Estimated GFR (MDRD) 34 37 Glucose 96 107 H (74-106) mg/dL Calcium 8.6 9.0 (8.5-10.1) mg/dL Creatine Kinase 374 H* 303 H* (26-192) U/L ESTEBAN Results - Last 24 hrs: Microbiology 03/17/20 13:30 Urine Culture - Preliminary Urine, Voided Gram Negative Rods Gram Negative Rods#2 Med Orders - Current: Current Medications Acetaminophen (Tylenol) 650 mg PO Q4H PRN PRN Reason: Pain (Mild 1-3)/fever Last Admin: 03/19/20 01:34 Dose: 650 mg Documented by: Albuterol (Ventolin Hfa) 0 gm INH Q6HRRT PRN PRN Reason: Shortness of Breath Ascorbic Acid (Vitamin C) 1,000 mg PO BID [facility] Last Admin: 03/19/20 08:03 Dose: 1,000 mg Documented by: Aspirin (Aspirin) 81 mg PO DAILY [facility] Last Admin: 03/19/20 08:04 Dose: 81 mg Documented by: Benzonatate (Tessalon Perles) 200 mg PO TID PRN PRN Reason: cough Calcium Carbonate (Calcium Carbonate/Vitamin D 1250 Mg-200 Unit) 1 tab PO BID [facility] Last Admin: 03/19/20 08:04 Dose: 1 tab Documented by: Calcium Polycarbophil (Fibercon) 625 mg PO BID [facility] Last Admin: 03/19/20 08:03 Dose: 625 mg Documented by: Ceftriaxone Sodium (Rocephin) 1 gm IVPUSH DAILY [facility] Last Admin: 03/19/20 08:04 Dose: 1 gm Documented by: Cholecalciferol (Vitamin D3) 20 mcg PO DAILY [facility] Last Admin: 03/19/20 08:04 Dose: 20 mcg Documented by: Hydroxyzine HCl (Atarax) 25 mg PO BEDTIME [facility] Last Admin: 03/18/20 20:40 Dose: 25 mg Documented by: Lactobacillus Rhamnosus (Culturelle) 1 cap PO DAILY [facility] Last Admin: 03/19/20 08:03 Dose: 1 cap Documented by: Latanoprost (Xalatan 0.005% Ophth Soln) 0 ml EYEBOTH BEDTIME [facility] Last Admin: 03/18/20 20:40 Dose: 1 drop Documented by: Multivitamins/Minerals (Thera M Plus) 1 tab PO DAILY [facility] Last Admin: 03/19/20 08:03 Dose: 1 tab Documented by: Ondansetron HCl (Zofran) 4 mg IV Q6H PRN PRN Reason: Nausea/Vomiting Sodium Chloride (Saline Flush) 10 ml FLUSH ASDIRECTED PRN PRN Reason: flush Zinc Gluconate (Zinc) 200 mg PO DAILY [facility] Last Admin: 03/19/20 08:03 Dose: 200 mg Documented by: Discontinued Medications Albuterol (Ventolin Hfa) 6.7 gm INH Q6HR [facility] Last Admin: 03/18/20 07:18 Dose: Not Given Documented by: Atorvastatin Calcium (Lipitor) 40 mg PO BEDTIME [facility] Benzonatate (Tessalon Perles) 200 mg PO TID [facility] Last Admin: 03/18/20 08:57 Dose: 200 mg Documented by: Sodium Chloride (Normal Saline) 1,000 mls @ 999 mls/hr IV ONETIME ONE Stop: 03/16/20 22:17 Last Admin: 03/16/20 21:20 Dose: 999 mls/hr Documented by: Latanoprost (Xalatan 0.005% Ophth Soln) 7.5 ml EYEBOTH BEDTIME [facility] Last Admin: 03/18/20 07:16 Dose: Not Given Documented by: Lorazepam (Ativan) 1 mg IVPUSH STAT ONE Stop: 03/16/20 21:48 Last Admin: 03/16/20 21:55 Dose: 1 mg Documented by: Meloxicam (Mobic) 15 mg PO DAILY [facility] Last Admin: 03/17/20 08:41 Dose: 15 mg Documented by: Non-Formulary Medication (Albuterol) 6.7 gm INH Q6HR [facility] Last Admin: 03/17/20 01:27 Dose: Not Given Documented by: - Exam General: Reports: Alert, Cooperative, No Acute Distress HEENT: Reports: Mucous Membr. Moist/[place] Neck: Reports: Supple, Trachea Midline, No Thyromegaly. Denies: Lymphadenopathy Lungs: Reports: Clear to Auscultation, Normal Respiratory Effort Cardiovascular: Reports: Regular Rate, Regular Rhythm, No Murmurs GI/Abdominal Exam: Normal Bowel Sounds, Soft, Non-Tender, No Organomegaly, No Distention, No Mass Extremities: Normal Inspection, Normal Range of Motion, Non-Tender, No Pedal Edema Skin: Reports: Warm, Dry, Ecchymosis (periorbital regions bilaterally) Neurological: Reports: No New Focal Deficit
== END 2020-03-19 11:19 | disposition swing bed (61) | DRG 682 ==
LOC: VM.ED 21:09 → UNDOADMOB 22:37 → VM.MS 22:37 → OBSVTOIN 03-17 10:43
PROVIDERS: ADMIT Internal Medicine; ATTEND Family Medicine
DX: N17.9 Acute kidney failure, unspecified (principal); R41.82 Altered mental status, unspecified; U07.1 COVID-19; M62.82 Rhabdomyolysis; T79.6XXA Traumatic ischemia of muscle, initial encounter; S06.0X9A Concussion with loss of consciousness of unspecified duration, initial encounter; N30.90 Cystitis, unspecified without hematuria; B96.89 Other specified bacterial agents as the cause of diseases classified elsewhere; D64.9 Anemia, unspecified; Z66 Do not resuscitate; F03.90 Unspecified dementia, unspecified severity, without behavioral disturbance, psychotic disturbance, mood disturbance, and anxiety; E78.5 Hyperlipidemia, unspecified; M06.9 Rheumatoid arthritis, unspecified; R26.9 Unspecified abnormalities of gait and mobility; M48.061 Spinal stenosis, lumbar region without neurogenic claudication; F07.81 Postconcussional syndrome; R19.7 Diarrhea, unspecified; R32 Unspecified urinary incontinence; Z88.5 Allergy status to narcotic agent; Z88.8 Allergy status to other drugs, medicaments and biological substances; Z79.82 Long term (current) use of aspirin; Z79.899 Other long term (current) drug therapy; Z91.81 History of falling; W19.XXXA Unspecified fall, initial encounter
CPT/HCPCS: 36415; 70450; 74176; 80048; 80053; 82550 ×2; 85025 ×2; 87088 ×2; 93005; 96374; 99285; A9270 ×9; J2060; J7030; U0002; 81001; 83880; 84484; 85610; 87086; 87186; 97161-GP; 97530-GP; 99220; 99283; 99284-25; G0378; J0696

== ENCOUNTER 2020-03-19 11:19 | Inpatient (IN) | payer MEDICARE, BC ==
[2020-03-19] MEDS ORDERED: ALBUTEROL PO PRN (13:06)
--- NOTE | 2020-03-19 14:03 | PCM.SN.2 ---
- Free Text/Narrative Note: Patient admitted to swing bed from acute. See d/c summary in separate encounter from today for full details. Patient will have PT and OT consults. Home medications continued. Plan will be to transition to the care center once they are accepting admits.
[2020-03-19] MEDS ORDERED: Benzonatate 100 MG Cap PO PRN (14:17)
[2020-03-19] MEDS ORDERED: Albuterol HFA 18 Gm Inhaler INH PRN (14:22)
[2020-03-19] MEDS: Zinc (Zinc Gluconate) 50 MG Tab PO SCH (15:05)
[2020-03-19] MEDS: Acetaminophen 325 MG Tab PO PRN (15:16)
[2020-03-19] MEDS: hydrOXYzine HCl 25 MG Tab PO SCH (17:47)
[2020-03-19] MEDS: atorvaSTATin 40 MG Tab PO SCH (20:54)
[2020-03-19] MEDS: Ascorbic Acid 500 MG Tab PO SCH (20:55)
[2020-03-19] MEDS: Latanoprost 0.005% Ophth Soln 2.5 ML Bottle EYEBOTH SCH (20:56)
[2020-03-19] MEDS: Calcium Polycarbophil 625 MG Tab PO SCH (21:00)
[2020-03-20] MEDS: Zinc (Zinc Gluconate) 50 MG Tab PO SCH (08:20)
[2020-03-20] MEDS: Aspirin 81 MG Tab.Chew PO SCH (08:20)
[2020-03-20] MEDS: Calcium Polycarbophil 625 MG Tab PO SCH ×3 (08:23→21:32)
[2020-03-20] MEDS: Ascorbic Acid 500 MG Tab PO SCH ×3 (08:25→21:32)
[2020-03-20] MEDS: Cholecalciferol (Vitamin D3) 10 MCG Tab PO SCH (08:25)
[2020-03-20] MEDS: Multivitamins with Iron/Calcium/Folic Acid/Minerals Tab PO SCH (08:26)
[2020-03-20] MEDS: Lactobacillus Rhamnosus GG (Probiotic) Cap PO SCH (08:26)
[2020-03-20] MEDS: Acetaminophen 325 MG Tab PO PRN (16:14)
[2020-03-20] MEDS: hydrOXYzine HCl 25 MG Tab PO SCH (17:48)
[2020-03-20] MEDS: atorvaSTATin 40 MG Tab PO SCH ×2 (20:24→21:32)
[2020-03-20] MEDS: Latanoprost 0.005% Ophth Soln 2.5 ML Bottle EYEBOTH SCH (20:24)
[2020-03-21] MEDS: Aspirin 81 MG Tab.Chew PO SCH (08:01)
[2020-03-21] MEDS: Cholecalciferol (Vitamin D3) 10 MCG Tab PO SCH (08:01)
[2020-03-21] MEDS: Calcium Polycarbophil 625 MG Tab PO SCH ×2 (08:02→20:46)
[2020-03-21] MEDS: Ascorbic Acid 500 MG Tab PO SCH ×2 (08:05→20:46)
[2020-03-21] MEDS: Zinc (Zinc Gluconate) 50 MG Tab PO SCH (08:09)
[2020-03-21] MEDS: Multivitamins with Iron/Calcium/Folic Acid/Minerals Tab PO SCH (08:19)
[2020-03-21] MEDS: Lactobacillus Rhamnosus GG (Probiotic) Cap PO SCH (08:19)
--- NOTE | 2020-03-21 08:51 | PCM.PN ---
- General Info Date of Service: 03/21/20 Subjective Update: 74 yo female on swing bed for strengthening/bridge to d/c to SNF after acute admission for MOE, mild rhabdomyolysis, UTI, and a concussion. She is seen today for follow-up due to fluctuating mentation since discharge to swing bed. She seems to do well in the mornings. By the late afternoons, she is more drowsy and confused. She has more difficulty with tasks with an example being not knowing how to use a straw. She has seemed to be in pain when repositioned but denies pain when asked. Nursing unsure where the pain is with moving. Tylenol does seem to help. - Review of Systems Systems Review Comment:: Unable to obtain as patient only answers a few yes/no questions - denies headache or pain - Patient Data Vitals - Most Recent: Last Vital Signs Temp 36.9 C 03/21/20 06:00 Pulse 96 03/21/20 06:00 Resp 14 03/21/20 06:00 BP 134/74 03/21/20 06:00 Pulse Ox 98 03/21/20 06:00 Weight - Most Recent: 73.845 kg I&O - Last 24 Hours: Intake & Output 03/20/20 03/21/20 03/21/20 22:59 06:59 14:59 Intake Total 50 Output Total 250 Balance -200 Lab Results Last 24 Hours: Laboratory Results - last 24 hr 03/21/20 Range/Units 07:52 Sodium 143 (136-145) mmol/L Potassium 4.0 (3.5-5.1) mmol/L Chloride 106 (98-107) mmol/L Carbon Dioxide 25 (21-32) mmol/L Anion Gap 16.0 (10-20) mmol/L BUN 33 H (7-18) mg/dL Creatinine 1.2 H (0.55-1.02) mg/dL Est Cr Clr Drug Dosing 45.83 mL/min Estimated GFR (MDRD) 44 Glucose 121 H (74-106) mg/dL Calcium 9.2 (8.5-10.1) mg/dL Med Orders - Current: Current Medications Acetaminophen (Tylenol) 650 mg PO Q4H PRN PRN Reason: Pain (Mild 1-3)/fever Last Admin: 03/20/20 16:14 Dose: 650 mg Documented by: Albuterol (Ventolin Hfa) 0 gm INH Q6H PRN PRN Reason: Shortness of Breath Ascorbic Acid (Vitamin C) 1,000 mg PO BID [facility] Last Admin: 03/21/20 08:05 Dose: 1,000 mg Documented by: Aspirin (Aspirin) 81 mg PO DAILY [facility] Last Admin: 03/21/20 08:01 Dose: 81 mg Documented by: Atorvastatin Calcium (Lipitor) 40 mg PO BEDTIME [facility] Last Admin: 03/20/20 21:32 Dose: Not Given Documented by: Benzonatate (Tessalon Perles) 200 mg PO TID PRN PRN Reason: Cough Calcium Polycarbophil (Fibercon) 625 mg PO BID [facility] Last Admin: 03/21/20 08:02 Dose: 625 mg Documented by: Cholecalciferol (Vitamin D3) 20 mcg PO DAILY [facility] Last Admin: 03/21/20 08:01 Dose: 20 mcg Documented by: Hydroxyzine HCl (Atarax) 25 mg PO DAILY@1800 [facility] Last Admin: 03/20/20 17:48 Dose: 25 mg Documented by: Lactobacillus Rhamnosus (Culturelle) 1 cap PO DAILY [facility] Last Admin: 03/21/20 08:19 Dose: Not Given Documented by: Latanoprost (Xalatan 0.005% Ophth Soln) 0 ml EYEBOTH BEDTIME [facility] Last Admin: 03/20/20 20:24 Dose: 1 drop Documented by: Multivitamins/Minerals (Thera M Plus) 1 tab PO DAILY [facility] Last Admin: 03/21/20 08:19 Dose: Not Given Documented by: Discontinued Medications Zinc Gluconate (Zinc) 200 mg PO DAILY [facility] Stop: 03/21/20 08:01 Last Admin: 03/21/20 08:09 Dose: 200 mg Documented by: - Exam General: Alert, Cooperative, No Acute Distress HEENT: Mucous Membr. Moist/[place] Neck: Supple, Trachea Midline, No Thyromegaly. No: Lymphadenopathy Lungs: Clear to Auscultation, Normal Respiratory Effort Cardiovascular: Regular Rate, Regular Rhythm, No Murmurs GI/Abdominal Exam: Normal Bowel Sounds, Soft, Non-Tender, No Organomegaly, No Distention, No Mass Extremities: Non-Tender, No Pedal Edema, Normal Capillary Refill Peripheral Pulses: 2+: Radial (L), Radial (R) Skin: Warm, Dry, Ecchymosis Sepsis Event Note - Evaluation Sepsis Screening Result: No Definite Risk - Focused Exam Vital Signs: Vital Signs Temp Pulse Resp BP Pulse Ox 03/21/20 06:00 36.9 C 96 14 134/74 98 - Problem List & Annotations (1) Acute kidney injury SNOMED Code(s): 25994362, 41695832 Code(s): N17.9 - ACUTE KIDNEY FAILURE, UNSPECIFIED Status: Acute Current Visit: No (2) COVID-19 SNOMED Code(s): 790588299 Code(s): U07.1 - COVID-19 Status: Acute Current Visit: No (3) Concussion SNOMED Code(s): 664268671 Code(s): S06.0X9A - CONCUSSION W LOSS OF CONSCIOUSNESS OF UNSP DURATION, INIT Status: Acute Current Visit: No Qualifiers: Encounter type: initial encounter Loss of consciousness presence/duration: with LOC of unspecified duration Qualified Code(s): S06.0X9A - Concussion with loss of consciousness of unspecified duration, initial encounter (4) Dementia SNOMED Code(s): 16796190 Code(s): F03.90 - UNSPECIFIED DEMENTIA WITHOUT BEHAVIORAL DISTURBANCE Status: Chronic Current Visit: No Qualifiers: Dementia type: unspecified type Dementia behavioral disturbance: without behavioral disturbance Qualified Code(s): F03.90 - Unspecified dementia without behavioral disturbance - Problem List Review Problem List Initiated/Reviewed/Updated: Yes - My Orders Last 24 Hours: My Active Orders 03/20/20 08:00 Aspirin 81 mg PO DAILY Cholecalciferol (Vitamin D3) [Vitamin D3] 20 mcg PO DAILY Lactobacillus Rhamnosus GG [Culturelle] 1 cap PO DAILY Multivitamins w-Iron/Ca/FA/Min [Thera M Plus] 1 tab PO DAILY 03/21/20 09:00 Enoxaparin [Lovenox] 40 mg SUBCUT Q24H 03/22/20 07:00 CBC W/O DIFF,HEMOGRAM [HEME] Q3D 03/25/20 07:00 CBC W/O DIFF,HEMOGRAM [HEME] Q3D 03/28/20 07:00 CBC W/O DIFF,HEMOGRAM [HEME] Q3D 03/31/20 07:00 CBC W/O DIFF,HEMOGRAM [HEME] Q3D 04/03/20 07:00 CBC W/O DIFF,HEMOGRAM [HEME] Q3D 04/06/20 07:00 CBC W/O DIFF,HEMOGRAM [HEME] Q3D 04/09/20 07:00 CBC W/O DIFF,HEMOGRAM [HEME] Q3D - Assessment Assessment:: 74 yo female on swing bed awaiting transition to the care center. Has had fluctuations in mentation, likely related to her dementia. No focal symptoms or progressive worsening. - Plan Plan:: Labs ok today. Continue current care plan. Will continue to monitor for any persistent/worsening changes in symptoms.
[2020-03-21] MEDS: Enoxaparin 40 MG/0.4 ML Syringe SUBCUT SCH (09:33)
[2020-03-21] MEDS: Acetaminophen 325 MG Tab PO PRN ×2 (09:39→18:36)
[2020-03-21] MEDS: hydrOXYzine HCl 25 MG Tab PO SCH (18:37)
[2020-03-21] MEDS: atorvaSTATin 40 MG Tab PO SCH (20:47)
[2020-03-21] MEDS: Latanoprost 0.005% Ophth Soln 2.5 ML Bottle EYEBOTH SCH (20:47)
[2020-03-22] MEDS: Acetaminophen 325 MG Tab PO PRN ×2 (05:34→18:14)
[2020-03-22] MEDS: Lactobacillus Rhamnosus GG (Probiotic) Cap PO SCH (09:11)
[2020-03-22] MEDS: Calcium Polycarbophil 625 MG Tab PO SCH ×2 (09:11→21:04)
[2020-03-22] MEDS: Multivitamins with Iron/Calcium/Folic Acid/Minerals Tab PO SCH (09:11)
[2020-03-22] MEDS: Cholecalciferol (Vitamin D3) 10 MCG Tab PO SCH (09:11)
[2020-03-22] MEDS: Enoxaparin 40 MG/0.4 ML Syringe SUBCUT SCH (09:11)
[2020-03-22] MEDS: Ascorbic Acid 500 MG Tab PO SCH ×2 (09:12→21:04)
[2020-03-22] MEDS: Aspirin 81 MG Tab.Chew PO SCH (09:12)
[2020-03-22] MEDS: hydrOXYzine HCl 25 MG Tab PO SCH (18:15)
--- NOTE | 2020-03-22 18:27 | PCM.SN.2 ---
- Free Text/Narrative Note: Patient with recurrent fevers in the past 24 hours. Given normal WBC today, suspect this is secondary to her known COVID diagnosis. Will repeat labs tomorrow am, including a procalcitonin for further assessment. No antibiotics at this time unless other vital sign changes are noted.
[2020-03-22] MEDS: atorvaSTATin 40 MG Tab PO SCH (21:04)
[2020-03-22] MEDS: Latanoprost 0.005% Ophth Soln 2.5 ML Bottle EYEBOTH SCH (21:04)
[2020-03-23] MEDS: Acetaminophen 325 MG Tab PO PRN (01:46)
[2020-03-23 08:27] LABS: ANION GAP 15.6 mmol/L (10-20)
[2020-03-23] MEDS: Calcium Polycarbophil 625 MG Tab PO SCH ×2 (08:30→20:32)
[2020-03-23] MEDS: Multivitamins with Iron/Calcium/Folic Acid/Minerals Tab PO SCH (08:30)
[2020-03-23] MEDS: Enoxaparin 40 MG/0.4 ML Syringe SUBCUT SCH (08:31)
[2020-03-23] MEDS: Lactobacillus Rhamnosus GG (Probiotic) Cap PO SCH (08:31)
[2020-03-23] MEDS: Cholecalciferol (Vitamin D3) 10 MCG Tab PO SCH (08:31)
[2020-03-23] MEDS: Aspirin 81 MG Tab.Chew PO SCH (08:31)
[2020-03-23] MEDS: Ascorbic Acid 500 MG Tab PO SCH ×2 (08:31→20:32)
[2020-03-23] MEDS ORDERED: Sodium Chloride 0.9% 1,000 ML IV SCH (09:45)
--- NOTE | 2020-03-23 13:34 | PCM.PN ---
- General Info Date of Service: 03/23/20 Subjective Update: 74 yo female on swing bed for strengthening while awaiting discharge to [facility]. Has started having fevers the past 2 days. Continues not to eat and drink very well. Patient level of alertness is stable and she has had no focal deficits. She states that she is doing ok. She answers simple yes and no questions. - Review of Systems General: Reports: Fever, Malaise HEENT: Reports: No Symptoms Pulmonary: Reports: No Symptoms Cardiovascular: Reports: No Symptoms Gastrointestinal: Reports: No Symptoms Genitourinary: Reports: No Symptoms Musculoskeletal: Reports: No Symptoms Skin: Reports: No Symptoms - Patient Data Vitals - Most Recent: Last Vital Signs Temp 36.6 C 03/23/20 05:36 Pulse 102 H 03/23/20 05:36 Resp 17 03/23/20 05:36 BP 130/77 03/23/20 05:36 Pulse Ox 98 03/23/20 05:36 Weight - Most Recent: 73.845 kg I&O - Last 24 Hours: Intake & Output 03/22/20 03/23/20 03/23/20 22:59 06:59 14:59 Intake Total 20 0 Balance 20 0 Lab Results Last 24 Hours: Laboratory Results - last 24 hr 03/23/20 03/23/20 Range/Units 07:48 07:48 WBC 8.9 (4.0-10.0) x10^3/uL RBC 4.09 (4.00-5.50) x10^6/uL Hgb 12.0 (12.0-16.0) g/dL Hct 37.6 (33.0-47.0) % MCV 91.9 (78.0-93.0) fL MCH 29.3 (26.0-32.0) pg MCHC 31.9 L (32.0-36.0) g/dL RDW Coeff of Romero 15.1 H (10.0-15.0) % Plt Count 134 (130-400) x10^3/uL Add Manual Diff Yes Neutrophils % (Manual) 70 (50-80) % Band Neutrophils % 5 (0-6) % Lymphocytes % (Manual) 16 L (25-50) % Reactive Lymphs % 3 H (0) % Monocytes % (Manual) 6 (2-11) % Platelet Estimate Adequate Hypochromasia 1+ slight H Anisocytosis 1+ slight H Sodium 146 H (136-145) mmol/L Potassium 3.6 (3.5-5.1) mmol/L Chloride 109 H (98-107) mmol/L Carbon Dioxide 25 (21-32) mmol/L Anion Gap 15.6 (10-20) mmol/L BUN 54 H (7-18) mg/dL Creatinine 2.0 H (0.55-1.02) mg/dL Est Cr Clr Drug Dosing 27.49 mL/min Estimated GFR (MDRD) 24 Glucose 130 H (74-106) mg/dL Calcium 9.7 (8.5-10.1) mg/dL C-Reactive Protein 7.8 H (<=0.9) mg/dL Med Orders - Current: Current Medications Acetaminophen (Tylenol) 650 mg PO Q4H PRN PRN Reason: Pain (Mild 1-3)/fever Last Admin: 03/23/20 01:46 Dose: 650 mg Documented by: Albuterol (Ventolin Hfa) 0 gm INH Q6H PRN PRN Reason: Shortness of Breath Ascorbic Acid (Vitamin C) 1,000 mg PO BID [facility] Last Admin: 03/23/20 08:31 Dose: 1,000 mg Documented by: Aspirin (Aspirin) 81 mg PO DAILY [facility] Last Admin: 03/23/20 08:31 Dose: 81 mg Documented by: Atorvastatin Calcium (Lipitor) 40 mg PO BEDTIME [facility] Last Admin: 03/22/20 21:04 Dose: 40 mg Documented by: Benzonatate (Tessalon Perles) 200 mg PO TID PRN PRN Reason: Cough Calcium Polycarbophil (Fibercon) 625 mg PO BID [facility] Last Admin: 03/23/20 08:30 Dose: 625 mg Documented by: Cholecalciferol (Vitamin D3) 20 mcg PO DAILY [facility] Last Admin: 03/23/20 08:31 Dose: 20 mcg Documented by: Enoxaparin Sodium (Lovenox) 40 mg SUBCUT Q24H [facility] Last Admin: 03/23/20 08:31 Dose: 40 mg Documented by: Hydroxyzine HCl (Atarax) 25 mg PO DAILY@1800 [facility] Last Admin: 03/22/20 18:15 Dose: 25 mg Documented by: Sodium Chloride (Normal Saline) 1,000 mls @ 50 mls/hr IV ASDIRECTED [facility] Stop: 03/23/20 19:46 Last Admin: 03/23/20 10:34 Dose: 50 mls/hr Documented by: Lactobacillus Rhamnosus (Culturelle) 1 cap PO DAILY [facility] Last Admin: 03/23/20 08:31 Dose: 1 cap Documented by: Latanoprost (Xalatan 0.005% Ophth Soln) 0 ml EYEBOTH BEDTIME [facility] Last Admin: 03/22/20 21:04 Dose: 1 drop Documented by: Multivitamins/Minerals (Thera M Plus) 1 tab PO DAILY [facility] Last Admin: 03/23/20 08:30 Dose: 1 tab Documented by: Discontinued Medications Zinc Gluconate (Zinc) 200 mg PO DAILY [facility] Stop: 03/21/20 08:01 Last Admin: 03/21/20 08:09 Dose: 200 mg Documented by: - Exam General: Alert, Cooperative, No Acute Distress HEENT: Pupils Equal, Pupils Reactive, Mucous Membr. Moist/[place] Neck: Supple, Trachea Midline, No Thyromegaly. No: Lymphadenopathy Lungs: Clear to Auscultation, Normal Respiratory Effort Cardiovascular: Regular Rate, Regular Rhythm, No Murmurs GI/Abdominal Exam: Normal Bowel Sounds, Soft, Non-Tender, No Organomegaly, No Distention, No Mass Extremities: Normal Inspection, Non-Tender, No Pedal Edema, Normal Capillary Refill Peripheral Pulses: 2+: Radial (L), Radial (R) Skin: Warm, Dry, Intact Neurological: No New Focal Deficit Sepsis Event Note - Evaluation Sepsis Screening Result: No Definite Risk - Focused Exam Vital Signs: Vital Signs Temp Temp Pulse Resp BP Pulse Ox 03/23/20 05:36 36.6 C 102 H 17 130/77 98 03/23/20 02:16 36.6 C 03/23/20 01:46 37.7 C - Problem List & Annotations (1) Acute kidney injury SNOMED Code(s): 02240752, 23292630 Code(s): N17.9 - ACUTE KIDNEY FAILURE, UNSPECIFIED Status: Acute Current Visit: No (2) COVID-19 SNOMED Code(s): 716225598 Code(s): U07.1 - COVID-19 Status: Acute Current Visit: No (3) Concussion SNOMED Code(s): 002721461 Code(s): S06.0X9A - CONCUSSION W LOSS OF CONSCIOUSNESS OF UNSP DURATION, INIT Status: Acute Current Visit: No Qualifiers: Encounter type: initial encounter Loss of consciousness presence/duration: with LOC of unspecified duration Qualified Code(s): S06.0X9A - Concussion with loss of consciousness of unspecified duration, initial encounter (4) Dementia SNOMED Code(s): 05915265 Code(s): F03.90 - UNSPECIFIED DEMENTIA WITHOUT BEHAVIORAL DISTURBANCE Status: Chronic Current Visit: No Qualifiers: Dementia type: unspecified type Dementia behavioral disturbance: without behavioral disturbance Qualified Code(s): F03.90 - Unspecified dementia without behavioral disturbance - Problem List Review Problem List Initiated/Reviewed/Updated: Yes - My Orders Last 24 Hours: My Active Orders 03/23/20 07:48 PROCALCITONIN [REF] Routine 03/23/20 09:45 Sodium Chloride 0.9% [Normal Saline] 1,000 ml IV ASDIRECTED 03/25/20 07:00 CBC W/O DIFF,HEMOGRAM [HEME] Q3D 03/28/20 07:00 CBC W/O DIFF,HEMOGRAM [HEME] Q3D 03/31/20 07:00 CBC W/O DIFF,HEMOGRAM [HEME] Q3D 04/03/20 07:00 CBC W/O DIFF,HEMOGRAM [HEME] Q3D 04/06/20 07:00 CBC W/O DIFF,HEMOGRAM [HEME] Q3D 04/09/20 07:00 CBC W/O DIFF,HEMOGRAM [HEME] Q3D - Assessment Assessment:: 74 yo female on swing bed awaiting transition to the [facility]. Now with recurrent fever over the past couple of days. Labs repeated today and her creatinine is up significantly. Rest are stable. - Plan Plan:: #1 MOE - Likely secondary to very poor oral intake now with recurrence of fever. - Will do a total of 500 cc IV fluids over the course of the day today. - Repeat lab in the am. #2 COVID-19 - Fevers likely secondary to this. Nothing to suggest otherwise in terms of symptoms or exam. WBC normal still. - Patient still without respiratory symptoms or need for supplemental oxygen. - Since she is currently not meeting inpatient criteria, there is no role for dexamethasone or remdesivir at this point in time. - However, if she is changed to acute criteria tomorrow, will plan to start dexamethasone. - Repeat labs in the am. #3 Concussion #4 Dementia - Cognition now at baseline. - No need for repeat cerebral imaging. Patient will remain on swing bed today. Repeat labs in the am. If not improved or for sure if worsening, will plan to change back over to acute. Code status is DNR/DNI. Patient is on lovenox for VTE prophylaxis.
[2020-03-23] MEDS: hydrOXYzine HCl 25 MG Tab PO SCH (17:38)
[2020-03-23] MEDS: atorvaSTATin 40 MG Tab PO SCH (20:32)
[2020-03-23] MEDS: Latanoprost 0.005% Ophth Soln 2.5 ML Bottle EYEBOTH SCH (20:34)
[2020-03-24] MEDS: Enoxaparin 40 MG/0.4 ML Syringe SUBCUT SCH (08:29)
[2020-03-24] MEDS: Aspirin 81 MG Tab.Chew PO SCH (08:29)
[2020-03-24] MEDS: Calcium Polycarbophil 625 MG Tab PO SCH ×2 (08:29→20:06)
[2020-03-24] MEDS: Lactobacillus Rhamnosus GG (Probiotic) Cap PO SCH (08:29)
[2020-03-24] MEDS: Cholecalciferol (Vitamin D3) 10 MCG Tab PO SCH (08:29)
[2020-03-24] MEDS: Ascorbic Acid 500 MG Tab PO SCH ×2 (08:29→19:57)
[2020-03-24] MEDS: Multivitamins with Iron/Calcium/Folic Acid/Minerals Tab PO SCH (08:29)
[2020-03-24 08:55] LABS: ANION GAP 17.4 mmol/L (10-20)
--- NOTE | 2020-03-24 09:40 | PCM.SN.2 ---
- Free Text/Narrative Note: Patient creatinine is improved from yesterday. Still above baseline. Nursing staff note she is much more alert today. No fevers since . Therefore, will see how well she can drink today. Recheck labs in the am. Will keep her on swing bed but reassess again in the am.
[2020-03-24] MEDS: hydrOXYzine HCl 25 MG Tab PO SCH (19:59)
[2020-03-24] MEDS: atorvaSTATin 40 MG Tab PO SCH (20:00)
[2020-03-24] MEDS: Latanoprost 0.005% Ophth Soln 2.5 ML Bottle EYEBOTH SCH (20:03)
[2020-03-25 07:48] LABS: ANION GAP 14.6 mmol/L (10-20)
[2020-03-25] MEDS: Lactobacillus Rhamnosus GG (Probiotic) Cap PO SCH (10:11)
[2020-03-25] MEDS: Aspirin 81 MG Tab.Chew PO SCH (10:11)
[2020-03-25] MEDS: Cholecalciferol (Vitamin D3) 10 MCG Tab PO SCH (10:11)
[2020-03-25] MEDS: Calcium Polycarbophil 625 MG Tab PO SCH ×2 (10:11→19:46)
[2020-03-25] MEDS: Multivitamins with Iron/Calcium/Folic Acid/Minerals Tab PO SCH (10:11)
[2020-03-25] MEDS: Ascorbic Acid 500 MG Tab PO SCH ×2 (10:12→19:46)
--- NOTE | 2020-03-25 18:18 | PCM.SN.2 ---
- Free Text/Narrative Note: Patient platelets dropped significantly since last check. Could be related to the COVID. Although less likely with lovenox, HIT is a consideration. Will send lab for HIT antibodies. In the meantime, will d/c lovenox and start eliquis instead for VTE prophylaxis in the setting of COVID and immobility. Creatinine down today despite no fluids given yesterday. Patient has been more alert since her fever is resolved but continues to minimally answer questions and is still not eating/drinking well. Discussed waxing and waning status with the patient's daughter today. Reviewed that it will take weeks to determine whether this is her new baseline after the concussion and COVID or whether this is a reversible issue. Patient has not been able to reliably participate with physical therapy and they have discharged her at this point. She will be transitioning to the care center later this week. Main issue is the platelets, which will be rechecked tomorrow to trend. Her creatinine has also been an issue due to her significantly poor oral intake. Did discuss with her daughter, though, that the IV fluids she is getting are temporary fixes to likely a long-term problem. We'll recheck lab tomorrow and determine need to make any changes in her care plan at this time.
[2020-03-25] MEDS: hydrOXYzine HCl 25 MG Tab PO SCH (18:19)
[2020-03-25] MEDS: Apixaban 2.5 MG Tab PO SCH (19:46)
[2020-03-25] MEDS: Latanoprost 0.005% Ophth Soln 2.5 ML Bottle EYEBOTH SCH (19:46)
[2020-03-25] MEDS: atorvaSTATin 40 MG Tab PO SCH (19:46)
[2020-03-26 07:07] LABS: ANION GAP 18.7 mmol/L (10-20)
[2020-03-26] MEDS ORDERED: cefTRIAXone 1 GM Vial IVPUSH ONE (08:29)
[2020-03-26] MEDS ORDERED: Sodium Chloride 0.9% 500 ML IV ONE (08:45)
[2020-03-26] MEDS: Multivitamins with Iron/Calcium/Folic Acid/Minerals Tab PO SCH (09:24)
[2020-03-26] MEDS: Calcium Polycarbophil 625 MG Tab PO SCH (09:24)
[2020-03-26] MEDS: Apixaban 2.5 MG Tab PO SCH (09:24)
[2020-03-26] MEDS: Lactobacillus Rhamnosus GG (Probiotic) Cap PO SCH (09:24)
[2020-03-26] MEDS: Ascorbic Acid 500 MG Tab PO SCH (09:25)
[2020-03-26] MEDS: Cholecalciferol (Vitamin D3) 10 MCG Tab PO SCH (09:25)
--- NOTE | 2020-03-26 10:36 | CR ---
[id number] RAD/RAD Chest PA or AP 1V EXAM: FRONTAL CHEST INDICATION: LEUKOCYTOSIS. COMPARISON: None. DISCUSSION: Mild patchy bilateral infiltrates are most consistent with infection including potential Covid 19. No effusions. Normal heart size. Arterial calcifications. IMPRESSION: 1. Mild patchy bilateral infiltrates. Bennett Martinez MD 03/26/20 1034 Thank you for allowing us to participate in the care of your patient.
--- NOTE | 2020-03-26 10:39 | PCM.DCSUM1 ---
Discharge Summary - Hospital Course Free Text/Narrative:: Patient was admitted to swing bed for strengthening after an acute hospitalization for UTI, concussion, and MOE. She was not progressing well with therapies and has actually been getting more weak. Had fevers last week. Labs have been monitored due to tenuous renal function. Labs worsened again today and she met sepsis criteria. Therefore, she was admitted to acute instead. See admission H&P for further details. - Discharge Data Discharge Date: 03/26/20 Discharge Disposition: Admitted As Inpatient 68 Condition: Critical - Referral to [facility] Primary Care Physician: Kristal Baez MD - Discharge Diagnosis/Problem(s) (1) Acute kidney injury SNOMED Code(s): 98223737, 78053932 ICD Code: N17.9 - ACUTE KIDNEY FAILURE, UNSPECIFIED Status: Acute (2) COVID-19 SNOMED Code(s): 595169034 ICD Code: U07.1 - COVID-19 Status: Acute (3) Concussion SNOMED Code(s): 841491123 ICD Code: S06.0X9A - CONCUSSION W LOSS OF CONSCIOUSNESS OF UNSP DURATION, INIT Status: Acute Qualifiers: Encounter type: initial encounter Loss of consciousness presence/duration: with LOC of unspecified duration Qualified Code(s): S06.0X9A - Concussion with loss of consciousness of unspecified duration, initial encounter (4) Dementia SNOMED Code(s): 98093173 ICD Code: F03.90 - UNSPECIFIED DEMENTIA WITHOUT BEHAVIORAL DISTURBANCE Status: Chronic Qualifiers: Dementia type: unspecified type Dementia behavioral disturbance: without behavioral disturbance Qualified Code(s): F03.90 - Unspecified dementia without behavioral disturbance - Patient Summary/Data Consults: Consultations 03/19/20 13:05 Consult to Case Management/[employer] Supervisor [CONS] Routine OT Evaluation and Treatment [CONS] Routine PT Evaluation and Treatment [CONS] Routine - Discharge Plan Home Medications: Home Meds Albuterol [Proventil HFA] 2 inh PO Q6HR PRN 03/16/20 [History] Aspirin 81 mg PO DAILY 03/16/20 [History] Benzonatate 200 mg PO TID PRN 03/16/20 [History] Calc/D3/Mag/Zn/[place] [Calcium 600 MG Plus Vit D] 1 tab PO BID 03/16/20 [History] Lactobacillus Combination No.4 [Probiotic] 1 cap PO DAILY 03/16/20 [History] Latanoprost/Pf [Latanoprost 0.005% Eye Drop] 1 drop EYEBOTH BEDTIME 03/16/20 [History] Multivitamin [Multivitamins] 1 tab PO DAILY 03/16/20 [History] atorvaSTATin [Lipitor] 40 mg PO BEDTIME 03/16/20 [History] calcium polycarbophiL [Fibercon] 625 mg PO BID 03/16/20 [History] hydrOXYzine HCL [hydrOXYzine] 25 mg PO DAILY@1800 03/16/20 [History] Acetaminophen [Tylenol] 650 mg PO Q4H PRN tablet 03/19/20 [Rx] Ascorbic Acid [Vitamin C] 1,000 mg PO BID tablet 03/19/20 [Rx] Cholecalciferol (Vitamin D3) [Vitamin D3] 20 mcg PO DAILY tablet 03/19/20 [Rx] Zinc Gluconate [Zinc] 200 mg PO DAILY tablet 03/19/20 [Rx] - Discharge Summary/Plan Comment DC Time >30 min.: Yes (d/c and admit time 35 minutes) - Patient Data Vitals - Most Recent: Last Vital Signs Temp 36.6 C 03/26/20 05:07 Pulse 118 H 03/26/20 05:07 Resp 18 03/26/20 05:07 BP 127/80 03/26/20 05:07 Pulse Ox 99 03/26/20 05:07 Weight - Most Recent: 73.845 kg I&O - Last 24 hours: Intake & Output 03/25/20 03/26/20 03/26/20 22:59 06:59 14:59 Intake Total 0 Balance 0 Lab Results - Last 24 hrs: Laboratory Results - last 24 hr 03/23/20 03/26/20 03/26/20 Range/Units 07:48 06:21 06:21 WBC 11.3 H (4.0-10.0) x10^3/uL RBC 3.74 L (4.00-5.50) x10^6/uL Hgb 12.4 (12.0-16.0) g/dL Hct 36.6 (33.0-47.0) % MCV 97.9 H (78.0-93.0) fL MCH 33.2 H (26.0-32.0) pg MCHC 33.9 (32.0-36.0) g/dL RDW Coeff of Romero 16.7 H (10.0-15.0) % Plt Count 128 L D (130-400) x10^3/uL Neut % (Auto) 77.0 (50.0-80.0) % Lymph % (Auto) 14.8 L (25.0-50.0) % Clare % (Auto) 7.2 (2.0-11.0) % Eos % (Auto) 0.8 (0.0-4.0) % Baso % (Auto) 0.2 (0.2-1.2) % Sodium 157 H (136-145) mmol/L Potassium 3.7 (3.5-5.1) mmol/L Chloride 121 H (98-107) mmol/L Carbon Dioxide 21 (21-32) mmol/L Anion Gap 18.7 (10-20) mmol/L BUN 68 H (7-18) mg/dL Creatinine 2.0 H (0.55-1.02) mg/dL Est Cr Clr Drug Dosing 27.49 mL/min Estimated GFR (MDRD) 24 Glucose 135 H (74-106) mg/dL Calcium 9.6 (8.5-10.1) mg/dL Ferritin (8-252) ng/mL C-Reactive Protein (<=0.9) mg/dL Procalcitonin 0.31 H (<0.10) ng/mL Urine Color (YELLOW) Urine Appearance (CLEAR) Urine pH (5.0-8.0) Ur Specific [place] Urine Protein (NEGATIVE) mg/dL Urine Glucose (UA) (NEGATIVE) mg/dL Urine Ketones (NEGATIVE) mg/dL Urine Occult Blood (NEGATIVE) Urine Nitrite (NEGATIVE) Urine Bilirubin (NEGATIVE) Urine Urobilinogen (0.2) EU/dL Ur Leukocyte Esterase (NEGATIVE) Urine RBC (NOT SEEN) /HPF Urine WBC (NOT SEEN) /HPF Ur Squamous Epith Cells (NEGATIVE) /HPF Amorphous Sediment Urine Bacteria (NEGATIVE) /HPF Urine Mucus (NEGATIVE) /LPF 03/26/20 03/26/20 03/26/20 Range/Units 06:21 06:21 09:10 WBC (4.0-10.0) x10^3/uL RBC (4.00-5.50) x10^6/uL Hgb (12.0-16.0) g/dL Hct (33.0-47.0) % MCV (78.0-93.0) fL MCH (26.0-32.0) pg MCHC (32.0-36.0) g/dL RDW Coeff of Romero (10.0-15.0) % Plt Count (130-400) x10^3/uL Neut % (Auto) (50.0-80.0) % Lymph % (Auto) (25.0-50.0) % Clare % (Auto) (2.0-11.0) % Eos % (Auto) (0.0-4.0) % Baso % (Auto) (0.2-1.2) % Sodium (136-145) mmol/L Potassium (3.5-5.1) mmol/L Chloride (98-107) mmol/L Carbon Dioxide (21-32) mmol/L Anion Gap (10-20) mmol/L BUN (7-18) mg/dL Creatinine (0.55-1.02) mg/dL Est Cr Clr Drug Dosing mL/min Estimated GFR (MDRD) Glucose (74-106) mg/dL Calcium (8.5-10.1) mg/dL Ferritin 4937 H (8-252) ng/mL C-Reactive Protein 6.7 H (<=0.9) mg/dL Procalcitonin (<0.10) ng/mL Urine Color Yellow (YELLOW) Urine Appearance Clear (CLEAR) Urine pH 5.5 (5.0-8.0) Ur Specific [place] 1.020 Urine Protein 30 H (NEGATIVE) mg/dL Urine Glucose (UA) Negative (NEGATIVE) mg/dL Urine Ketones Negative (NEGATIVE) mg/dL Urine Occult Blood Negative (NEGATIVE) Urine Nitrite Negative (NEGATIVE) Urine Bilirubin Negative (NEGATIVE) Urine Urobilinogen 0.2 (0.2) EU/dL Ur Leukocyte Esterase Negative (NEGATIVE) Urine RBC 0-5 (NOT SEEN) /HPF Urine WBC 0-5 (NOT SEEN) /HPF Ur Squamous Epith Cells Rare (NEGATIVE) /HPF Amorphous Sediment Few Urine Bacteria Not seen (NEGATIVE) /HPF Urine Mucus Not seen (NEGATIVE) /LPF Med Orders - Current: Current Medications Discontinued Medications Acetaminophen (Tylenol) 650 mg PO Q4H PRN PRN Reason: Pain (Mild 1-3)/fever Last Admin: 03/23/20 01:46 Dose: 650 mg Documented by: Albuterol (Ventolin Hfa) 0 gm INH Q6H PRN PRN Reason: Shortness of Breath Apixaban (Eliquis) 2.5 mg PO BID [facility] Last Admin: 03/26/20 09:24 Dose: Not Given Documented by: Ascorbic Acid (Vitamin C) 1,000 mg PO BID [facility] Last Admin: 03/26/20 09:25 Dose: Not Given Documented by: Aspirin (Aspirin) 81 mg PO DAILY [facility] Last Admin: 03/25/20 10:11 Dose: 81 mg Documented by: Atorvastatin Calcium (Lipitor) 40 mg PO BEDTIME [facility] Last Admin: 03/25/20 19:46 Dose: 40 mg Documented by: Benzonatate (Tessalon Perles) 200 mg PO TID PRN PRN Reason: Cough Calcium Polycarbophil (Fibercon) 625 mg PO BID [facility] Last Admin: 03/26/20 09:24 Dose: Not Given Documented by: Ceftriaxone Sodium (Rocephin) 1 gm IVPUSH STAT ONE Stop: 03/26/20 08:30 Last Admin: 03/26/20 08:51 Dose: 1 gm Documented by: Cholecalciferol (Vitamin D3) 20 mcg PO DAILY [facility] Last Admin: 03/26/20 09:25 Dose: Not Given Documented by: Enoxaparin Sodium (Lovenox) 40 mg SUBCUT Q24H [facility] Last Admin: 03/24/20 08:29 Dose: 40 mg Documented by: Hydroxyzine HCl (Atarax) 25 mg PO DAILY@1800 [facility] Last Admin: 03/25/20 18:19 Dose: Not Given Documented by: Sodium Chloride (Normal Saline) 1,000 mls @ 50 mls/hr IV ASDIRECTED [facility] Stop: 03/23/20 19:46 Last Admin: 03/23/20 10:34 Dose: 50 mls/hr Documented by: Sodium Chloride (Normal Saline) 500 mls @ 500 mls/hr IV ONETIME ONE Stop: 03/26/20 09:44 Last Admin: 03/26/20 08:48 Dose: 500 mls/hr Documented by: Lactobacillus Rhamnosus (Culturelle) 1 cap PO DAILY [facility] Last Admin: 03/26/20 09:24 Dose: Not Given Documented by: Latanoprost (Xalatan 0.005% Ophth Soln) 0 ml EYEBOTH BEDTIME [facility] Last Admin: 03/25/20 19:46 Dose: 1 drop Documented by: Multivitamins/Minerals (Thera M Plus) 1 tab PO DAILY [facility] Last Admin: 03/26/20 09:24 Dose: Not Given Documented by: Zinc Gluconate (Zinc) 200 mg PO DAILY [facility] Stop: 03/21/20 08:01 Last Admin: 03/21/20 08:09 Dose: 200 mg Documented by:
[2020-03-27] MEDS ORDERED: Enoxaparin 40 MG/0.4 ML Syringe SUBCUT SCH (08:00)
== END 2020-03-26 09:30 | disposition critical access hospital (66) | DRG 947 ==
LOC: VM.MS 11:19
PROVIDERS: ADMIT Family Medicine; ATTEND Family Medicine
DX: R53.1 Weakness (principal); U07.1 COVID-19; N17.9 Acute kidney failure, unspecified; F03.90 Unspecified dementia, unspecified severity, without behavioral disturbance, psychotic disturbance, mood disturbance, and anxiety; S06.0X9D Concussion with loss of consciousness of unspecified duration, subsequent encounter; D64.9 Anemia, unspecified; E78.5 Hyperlipidemia, unspecified; M06.9 Rheumatoid arthritis, unspecified; M48.061 Spinal stenosis, lumbar region without neurogenic claudication; Z66 Do not resuscitate; Z79.82 Long term (current) use of aspirin; Z79.899 Other long term (current) drug therapy
CPT/HCPCS: 36415; 71045; 80048; 80053; 81001; 82728; 83615; 84145; 85025; 85027; 86022; 86140; 97530-GP; A9270-GY; J0696; J1650; J7030

== ENCOUNTER 2020-03-26 08:29 | Inpatient (IN) | payer MEDICARE, BC ==
[2020-03-26] MEDS ORDERED: Acetaminophen 325 MG Tab PO PRN (09:50)
--- NOTE | 2020-03-26 10:06 | PCM.HP.2 ---
H&P History of Present Illness - General Date of Service: 03/26/20 Admit Problem/Dx: Admission Diagnosis/Problem Admission Diagnosis/Problem Sepsis Source of Information: Old Records, RN History Limitations: Reports: Altered Mental Status - History of Present Illness Initial Comments - Free Text/Narative: Ms. Stovall is a 74 yo female with PMH of essential hypertension, hyperlipidemia, factor V Leiden mutation, lumbar spine stenosis, osteoporosis, rheumatoid arthritis, glaucoma, and dementia who [facility] meeting sepsis criteria this morning. The patient is minimally communicative today and does not really answer questions. Nursing staff note that she has been progressively more weak over the past 5-7 days. She is not able to even hold herself up in a seated position at this point. She continues not to eat and drink very well. She has been on swing bed but was felt appropriate to [facility] today in light of her lab work done this morning. She is still voiding without any issue. She has not had any diarrhea. She has not had any vomiting. They have not noticed that she has been coughing. - Related Data Allergies/Adverse Reactions: Allergies Allergy/AdvReac Type Severity Reaction Status Date / Time hydroxychloroquine Allergy Hives Verified 03/16/20 12:05 [From Plaquenil] nickel Allergy Cannot Verified 03/16/20 12:05 Remember Home Medications: Home Meds Albuterol [Proventil HFA] 2 inh PO Q6HR PRN 03/16/20 [History] Aspirin 81 mg PO DAILY 03/16/20 [History] Benzonatate 200 mg PO TID PRN 03/16/20 [History] Calc/D3/Mag/Zn/[place] [Calcium 600 MG Plus Vit D] 1 tab PO BID 03/16/20 [History] Lactobacillus Combination No.4 [Probiotic] 1 cap PO DAILY 03/16/20 [History] Latanoprost/Pf [Latanoprost 0.005% Eye Drop] 1 drop EYEBOTH BEDTIME 03/16/20 [History] Multivitamin [Multivitamins] 1 tab PO DAILY 03/16/20 [History] atorvaSTATin [Lipitor] 40 mg PO BEDTIME 03/16/20 [History] calcium polycarbophiL [Fibercon] 625 mg PO BID 03/16/20 [History] hydrOXYzine HCL [hydrOXYzine] 25 mg PO DAILY@1800 03/16/20 [History] Acetaminophen [Tylenol] 650 mg PO Q4H PRN tablet 03/19/20 [Rx] Ascorbic Acid [Vitamin C] 1,000 mg PO BID tablet 03/19/20 [Rx] Cholecalciferol (Vitamin D3) [Vitamin D3] 20 mcg PO DAILY tablet 03/19/20 [Rx] Zinc Gluconate [Zinc] 200 mg PO DAILY tablet 03/19/20 [Rx] Past Medical History HEENT History: Reports: Glaucoma Cardiovascular History: Reports: High Cholesterol, Hypertension Respiratory History: Reports: None Gastrointestinal History: Reports: None Genitourinary History: Reports: Acute Renal Failure, Chronic Renal Insuffiency Musculoskeletal History: Reports: Osteoarthritis, Osteoporosis, RA Neurological History: Reports: Alzheimers Disease, Head Trauma Psychiatric History: Reports: Dementia Endocrine/Metabolic History: Reports: None Hematologic History: Reports: None Immunologic History: Reports: None Oncologic (Cancer) History: Reports: None Dermatologic History: Reports: None - Past Surgical History HEENT Surgical History: Reports: Tonsillectomy GI Surgical History: Reports: Other (See Below) (hemorrhoidectomy) Female Surgical History: Reports: Hysterectomy Social & Family History - Family History Oncologic: Reports: Breast - Tobacco Use Tobacco Use Status *Q: Former Tobacco User - Caffeine Use Caffeine Use Comment: unable to obtain - Alcohol Use Alcohol Use History: No Alcohol Use in Last Twelve Months: No - Recreational Drug Use Recreational Drug Use: No - Living Situation & Occupation Living situation: Reports: , Assisted Living Occupation: Retired H&P Review of Systems - Review of Systems: Review Of Systems: Unable To Obtain Reason Not Obtained: dementia, concussion Exam - Exam Exam: See Below - Exam General: Other (tired but does awake to voice; does not appear in any acute distress) HEENT: Conjunctiva Clear, Mucosa Moist & [place], Posterior Pharynx Clear, Pupils Equal, Pupils Reactive Neck: Supple, Trachea Midline. No: Lymphadenopathy, Thyromegaly Lungs: Clear to Auscultation, Normal Respiratory Effort Cardiovascular: Regular Rate, Regular Rhythm, Normal S1, Normal S2 GI/Abdominal Exam: Normal Bowel Sounds, Soft, Non-Tender, No Organomegaly, No Distention, No Mass Extremities: Normal Inspection, Non-Tender, No Pedal Edema, Normal Capillary Refill Peripheral Pulses: 2+: Radial (L), Radial (R) Skin: Warm, Dry, Intact Neurological: Other (patient not able to participate with neurologic exam - does move all 4 extremities equally - no facial droop) - Problem List (1) Sepsis SNOMED Code(s): 12105827 ICD Code: A41.9 - SEPSIS, UNSPECIFIED ORGANISM Status: Acute Current Visit: Yes Qualifiers: Sepsis type: sepsis due to unspecified organism Sepsis acute organ dysfunction status: with acute organ dysfunction Severe sepsis acute organ dysfunction type: acute renal failure Acute renal failure type: unspecified Severe sepsis shock status: without septic shock Qualified Code(s): A41.9 - Sepsis, unspecified organism; R65.20 - Severe sepsis without septic shock; N17.9 - Acute kidney failure, unspecified (2) Pneumonia SNOMED Code(s): 678719990 ICD Code: J18.9 - PNEUMONIA, UNSPECIFIED ORGANISM Status: Acute Current Visit: Yes Qualifiers: Pneumonia type: due to unspecified organism Laterality: bilateral Lung location: unspecified part of lung Qualified Code(s): J18.9 - Pneumonia, unspecified organism (3) COVID-19 SNOMED Code(s): 259327057 ICD Code: U07.1 - COVID-19 Status: Acute Current Visit: No (4) Acute kidney injury SNOMED Code(s): 57442435, 37988847 ICD Code: N17.9 - ACUTE KIDNEY FAILURE, UNSPECIFIED Status: Acute Current Visit: No (5) Hypernatremia SNOMED Code(s): 748914104 ICD Code: E87.0 - HYPEROSMOLALITY AND HYPERNATREMIA Status: Acute Current Visit: Yes (6) CKD (chronic kidney disease) SNOMED Code(s): 820825525 ICD Code: N18.9 - CHRONIC KIDNEY DISEASE, UNSPECIFIED Status: Chronic Current Visit: Yes Qualifiers: Chronic kidney disease stage: stage 3 (moderate) Chronic kidney disease stage 3 subtype: unspecified whether 3a or 3b Qualified Code(s): N18.30 - Chronic kidney disease, stage 3 unspecified (7) Anemia SNOMED Code(s): 328404729 ICD Code: D64.9 - ANEMIA, UNSPECIFIED Status: Acute Current Visit: No Qualifiers: Anemia type: unspecified type Qualified Code(s): D64.9 - Anemia, unspecified (8) Concussion SNOMED Code(s): 557254465 ICD Code: S06.0X9A - CONCUSSION W LOSS OF CONSCIOUSNESS OF UNSP DURATION, INIT Status: Acute Current Visit: No Qualifiers: Encounter type: initial encounter Loss of consciousness presence/duration: with LOC of unspecified duration Qualified Code(s): S06.0X9A - Concussion with loss of consciousness of unspecified duration, initial encounter (9) Dementia SNOMED Code(s): 52185495 ICD Code: F03.90 - UNSPECIFIED DEMENTIA WITHOUT BEHAVIORAL DISTURBANCE Status: Chronic Current Visit: No Qualifiers: Dementia type: unspecified type Dementia behavioral disturbance: without behavioral disturbance Qualified Code(s): F03.90 - Unspecified dementia without behavioral disturbance (10) Hyperlipidemia SNOMED Code(s): 81483857 ICD Code: E78.5 - HYPERLIPIDEMIA, UNSPECIFIED Status: Chronic Current Visit: No Qualifiers: Hyperlipidemia type: unspecified Qualified Code(s): E78.5 - Hyperlipidemia, unspecified (11) Lumbar spinal stenosis SNOMED Code(s): 91758875 ICD Code: M48.061 - SPINAL STENOSIS, LUMBAR REGION WITHOUT NEUROGENIC PREMA Status: Chronic Current Visit: No Qualifiers: Neurogenic claudication status: without neurogenic claudication Qualified Code(s): M48.061 - Spinal stenosis, lumbar region without neurogenic claudication (12) Rheumatoid arthritis SNOMED Code(s): 54628293 ICD Code: M06.9 - RHEUMATOID ARTHRITIS, UNSPECIFIED Status: Chronic Current Visit: No Qualifiers: Rheumatoid arthritis location: unspecified site Rheumatoid factor presence: unspecified presence Qualified Code(s): M06.9 - Rheumatoid arthritis, unspecified Problem List Initiated/Reviewed/Updated: Yes Orders Last 24hrs: Active Orders 24 hr Category Date Time Status Patient Status [ADT] Routine ADT 03/26/20 09:50 Active Notify Provider Vital Signs [RC] ASDIRECTED Care 03/26/20 09:51 Active Oxygen Therapy [RC] PRN Care 03/26/20 09:50 Active Up With Assistance [RC] ASDIRECTED Care 03/26/20 09:50 Active VTE/DVT Education [RC] PER UNIT ROUTINE Care 03/26/20 09:50 Active Vital Signs [RC] Q4H Care 03/26/20 09:50 Active Regular Diet [DIET] Diet 03/26/20 Lunch Active CULTURE BLOOD [BC] Routine Lab 03/26/20 09:30 Ordered CULTURE BLOOD [BC] Routine Lab 03/26/20 09:38 Ordered Acetaminophen [TylenoL] Med 03/26/20 09:50 Ordered 650 mg PO Q4H PRN Ascorbic Acid [Vitamin C] Med 03/26/20 20:00 Ordered 1,000 mg PO BID Aspirin Med 03/27/20 08:00 Ordered 81 mg PO DAILY Cholecalciferol (Vitamin D3) [Vitamin D3] Med 03/27/20 08:00 Ordered 20 mcg PO DAILY Enoxaparin [Lovenox] Med 03/27/20 08:00 Ordered 40 mg SUBCUT DAILY Lactobacillus Combination No.4 [Probiotic] Med 03/27/20 08:00 Ordered 1 cap PO DAILY Latanoprost/Pf [Latanoprost 0.005% Eye Drop] Med 03/26/20 20:00 Ordered 1 drop EYEBOTH BEDTIME Zinc Gluconate [Zinc] Med 03/27/20 08:00 Ordered 200 mg PO DAILY atorvaSTATin [Lipitor] Med 03/26/20 20:00 Ordered 40 mg PO BEDTIME calcium polycarbophiL [Fibercon] Med 03/26/20 20:00 Ordered 625 mg PO BID hydrOXYzine HCL [Atarax] Med 03/26/20 18:00 Ordered 25 mg PO DAILY@1800 Resuscitation Status Routine Resus Stat 03/26/20 09:50 Ordered Medication Orders Acetaminophen (Tylenol) 650 mg PO Q4H PRN PRN Reason: Pain (Mild 1-3)/fever Ascorbic Acid (Vitamin C) 1,000 mg PO BID [facility] Aspirin (Aspirin) 81 mg PO DAILY [facility] Atorvastatin Calcium (Lipitor) 40 mg PO BEDTIME [facility] Calcium Polycarbophil (Fibercon) 625 mg PO BID [facility] Cholecalciferol (Vitamin D3) 20 mcg PO DAILY [facility] Enoxaparin Sodium (Lovenox) 40 mg SUBCUT DAILY [facility] Hydroxyzine HCl (Atarax) 25 mg PO DAILY@1800 [facility] Non-Formulary Medication (Lactobacillus Combination No.4 [Probiotic]) 1 cap PO DAILY [facility] Non-Formulary Medication (Latanoprost/Pf [Latanoprost 0.005% Eye Drop]) 1 drop EYEBOTH BEDTIME [facility] Zinc Gluconate (Zinc) 200 mg PO DAILY [facility] Assessment/Plan Comment:: 74 yo female admitted back to acute for sepsis secondary to pneumonia associated with MOE. #1 Sepsis, secondary to #2 - Met sepsis criteria with tachycardia and leukocytosis. - U/A was done to rule out UTI and was completely unremarkable. Patient has had no vomiting/diarrhea and had a negative CT abdomen/pelvis with initial admission. No skin concerns. - Blood cultures drawn and pending. - Will do lactic acid on am labs and recheck as indicated. - 500 mL bolus to get her HR down, then 100 mL/hr. Patient should be out of the COVID window for being significantly fluid sensitive and really has had no COVID symptoms besides fever. - See antibiotics as below. #2 Community acquired pneumonia #3 COVID - Has patchy bilateral infiltrates. Read as COVID. However, CRP and WBC both increased today, which is more consistent with a bacterial infection than with a viral pneumonia. - Therefore, patient is started on antibiotics for pneumonia to include ceftriaxone and azithromycin. Is not able to swallow her pills today so will do her azythromycin IV today and then hopefully PO tomorrow. Note interaction between azithromycin and hydroxyzine for QTc prolongation but Qtc was normal on admission despite patient already being on hydroxyzine so the risk is minimal. - IV fluids as above. - Will check labs daily. - Possibly repeat a CXR tomorrow once she has been fluid resuscitated for further evaluation. - Continue vitamin C, vitamin D, and zinc for COVID. Since she is not hypoxic, other therapies are not indicated at this time. #4 MOE #5 Hypernatremia #6 CKD - Likely dehydration secondary to poor PO intake. - Even though last clinic creatinine was normal, that was 2 years ago. Suspect her baseline is more like the 1.4 on her first ER visit 10 days ago. - Patient will be started on IV fluids as above. - Recheck labs in the am. #7 Anemia - Hgb has been stable. - Will continue to monitor daily. #8 Concussion #9 Dementia - Unclear how much of her mental status change is related to the sepsis and pneumonia vs how much is related to the concussion. It is also unclear how much this will improve and what her new baseline will be. - Patient's daughter has been counseled on this and is aware. - Plan is for transition to the care center once medically stable and they are able to take her there. #10 Hyperlipidemia #11 Lumbar stenosis #12 RA - Meloxicam held in light of renal function. - Other home medications continued. Patient is admitted back to acute as above. Anticipate 2-3 days of needing IV antibiotics. Depending on timeline, will then either return to swing bed or will plan d/c to [facility]. Code status is DNR/DNI - discussed and confirmed with daughter on admission. Patient's daughter was updated regarding the patient's status and care plan as of this am. Lovenox for VTE prophylaxis - had thrombocytopenia yesterday but platelets back up this am. Therefore, not consistent with HIT. Antibodies already sent and we will continue to monitor platelets daily. However, for now, reasonable to resume lovenox as long as CrCl back above 30 tomorrow.
[2020-03-26] MEDS: Sodium Chloride 0.9% 1,000 ML IV SCH ×2 (11:58→23:46)
[2020-03-26] MEDS: Azithromycin 250 MG Tab PO ONE ×2 (11:59→12:01)
[2020-03-26] MEDS ORDERED: Azithromycin 500 MG in Sodium Chloride 0.9% 250 ML IV ONE (12:29)
[2020-03-26] MEDS: hydrOXYzine HCl 25 MG Tab PO SCH (18:10)
[2020-03-26] MEDS ORDERED: Acetaminophen 650 MG Supp RECTAL PRN (19:35)
[2020-03-26] MEDS: Calcium Polycarbophil 625 MG Tab PO SCH (20:14)
[2020-03-26] MEDS: atorvaSTATin 40 MG Tab PO SCH (20:14)
[2020-03-26] MEDS: Ascorbic Acid 500 MG Tab PO SCH (20:14)
[2020-03-26] MEDS: Latanoprost 0.005% Ophth Soln 2.5 ML Bottle EYEBOTH SCH (20:15)
[2020-03-27 07:41] LABS: ANION GAP 16.3 mmol/L (10-20)
[2020-03-27] MEDS ORDERED: Sodium Chloride 0.45% with KCl 1,000 ML IV SCH (08:45)
--- NOTE | 2020-03-27 09:03 | PCM.PN ---
- General Info Date of Service: 03/27/20 Subjective Update: 74 yo female acute hospital day #2 admitted with sepsis secondary to pneumonia. Had been on swing bed prior. Patient is doing somewhat better in the past 24 hours. Was able to sit unassisted at the side of the bed yesterday afternoon for the first time in >1 w [place]. She is more alert but does still have trouble answering questions. She has not appeared to be in any pain. She has had no vomiting or diarrhea. - Review of Systems General: Reports: No Symptoms Systems Review Comment:: unable to assess - patient does not answer questions appropriately today - Patient Data Vitals - Most Recent: Last Vital Signs Temp 36.7 C 03/27/20 05:30 Pulse 103 H 03/27/20 05:30 Resp 18 03/27/20 05:30 BP 137/78 03/27/20 05:30 Pulse Ox 98 03/27/20 05:30 Weight - Most Recent: 67.132 kg I&O - Last 24 Hours: Intake & Output 03/26/20 03/27/20 03/27/20 22:59 06:59 14:59 Intake Total 740 1110 Balance 740 1110 Lab Results Last 24 Hours: Laboratory Results - last 24 hr 03/26/20 03/27/20 03/27/20 Range/Units 06:21 06:27 06:27 WBC 11.0 H (4.0-10.0) x10^3/uL RBC 3.57 L (4.00-5.50) x10^6/uL Hgb 10.8 L D (12.0-16.0) g/dL Hct 34.6 (33.0-47.0) % MCV 96.9 H (78.0-93.0) fL MCH 30.3 (26.0-32.0) pg MCHC 31.2 L (32.0-36.0) g/dL RDW Coeff of Romero 15.3 H (10.0-15.0) % Plt Count 201 (130-400) x10^3/uL Neut % (Auto) 76.4 (50.0-80.0) % Lymph % (Auto) 14.8 L (25.0-50.0) % [place] % (Auto) 6.5 (2.0-11.0) % Eos % (Auto) 2.2 (0.0-4.0) % Baso % (Auto) 0.1 L (0.2-1.2) % Sodium 164 H* (136-145) mmol/L Potassium 3.3 L (3.5-5.1) mmol/L Chloride 130 H (98-107) mmol/L Carbon Dioxide 21 (21-32) mmol/L Anion Gap 16.3 (10-20) mmol/L BUN 55 H (7-18) mg/dL Creatinine 1.7 H (0.55-1.02) mg/dL Est Cr Clr Drug Dosing 31.70 mL/min Estimated GFR (MDRD) 30 Glucose 123 H (74-106) mg/dL Lactic Acid 1.3 (0.4-2.0) mmol/L Calcium 9.4 (8.5-10.1) mg/dL C-Reactive Protein 6.4 H (<=0.9) mg/dL Med Orders - Current: Current Medications Acetaminophen (Tylenol) 650 mg PO Q4H PRN PRN Reason: Pain (Mild 1-3)/fever Acetaminophen (Tylenol) 650 mg RECTAL Q4H PRN PRN Reason: Fever Ascorbic Acid (Vitamin C) 1,000 mg PO BID [facility] Last Admin: 03/26/20 20:14 Dose: Not Given Documented by: Aspirin (Aspirin) 81 mg PO DAILY [facility] Atorvastatin Calcium (Lipitor) 40 mg PO BEDTIME [facility] Last Admin: 03/26/20 20:14 Dose: Not Given Documented by: Azithromycin (Zithromax) 250 mg PO DAILY [facility] Calcium Polycarbophil (Fibercon) 625 mg PO BID [facility] Last Admin: 03/26/20 20:14 Dose: Not Given Documented by: Ceftriaxone Sodium (Rocephin) 1 gm IVPUSH DAILY [facility] Cholecalciferol (Vitamin D3) 20 mcg PO DAILY [facility] Hydroxyzine HCl (Atarax) 25 mg PO DAILY@1800 [facility] Last Admin: 03/26/20 18:10 Dose: Not Given Documented by: Potassium Chloride/Sodium Chloride (1/2 Ns With 20 Meq Kcl) 1,000 mls @ 100 mls/hr IV ASDIRECTED [facility] Lactobacillus Rhamnosus (Culturelle) 1 cap PO DAILY [facility] Latanoprost (Xalatan 0.005% Ophth Soln) 0 ml EYEBOTH BEDTIME [facility] Last Admin: 03/26/20 20:15 Dose: 1 drop Documented by: Zinc Gluconate (Zinc) 200 mg PO DAILY [facility] Discontinued Medications Azithromycin (Zithromax) 500 mg PO ONETIME ONE Stop: 03/26/20 11:16 Last Admin: 03/26/20 12:01 Dose: Not Given Documented by: Enoxaparin Sodium (Lovenox) 40 mg SUBCUT DAILY@1200 [facility] Sodium Chloride (Normal Saline) 1,000 mls @ 100 mls/hr IV ASDIRECTED [facility] Last Admin: 03/26/20 23:46 Dose: 100 mls/hr Documented by: Azithromycin 500 mg/ Sodium (Chloride) 250 mls @ 250 mls/hr IV STAT ONE Stop: 03/26/20 13:28 Last Admin: 03/26/20 13:16 Dose: 250 mls/hr Documented by: - Exam General: Alert, Cooperative, No Acute Distress HEENT: Mucous Membr. Moist/[place] Neck: Supple, Trachea Midline, No Thyromegaly. No: Lymphadenopathy Lungs: Clear to Auscultation, Normal Respiratory Effort Cardiovascular: Regular Rate, Regular Rhythm, No Murmurs GI/Abdominal Exam: Normal Bowel Sounds, Soft, Non-Tender, No Organomegaly, No Distention, No Mass Extremities: Normal Inspection, Non-Tender, No Pedal Edema, Normal Capillary Refill Peripheral Pulses: 2+: Radial (L), Radial (R) Skin: Warm, Dry, Intact Neurological: No New Focal Deficit Sepsis Event Note - Evaluation Sepsis Screening Result: No Definite Risk - Focused Exam Vital Signs: Vital Signs Temp Pulse Resp BP Pulse Ox 03/27/20 05:30 36.7 C 103 H 18 137/78 98 03/27/20 01:53 36.6 C 104 H 20 104/56 L 98 03/26/20 21:47 37.0 C 107 H 20 140/72 97 - Problem List & Annotations (1) Sepsis SNOMED Code(s): 76315546 Code(s): A41.9 - SEPSIS, UNSPECIFIED ORGANISM Status: Acute Current Visit: Yes Qualifiers: Sepsis type: sepsis due to unspecified organism Sepsis acute organ dysfunction status: with acute organ dysfunction Severe sepsis acute organ dysfunction type: acute renal failure Acute renal failure type: unspecified Severe sepsis shock status: without septic shock Qualified Code(s): A41.9 - Sepsis, unspecified organism; R65.20 - Severe sepsis without septic shock; N17.9 - Acute kidney failure, unspecified (2) Pneumonia SNOMED Code(s): 752976012 Code(s): J18.9 - PNEUMONIA, UNSPECIFIED ORGANISM Status: Acute Current Visit: Yes Qualifiers: Pneumonia type: due to unspecified organism Laterality: bilateral Lung location: unspecified part of lung Qualified Code(s): J18.9 - Pneumonia, unspecified organism (3) COVID-19 SNOMED Code(s): 282446174 Code(s): U07.1 - COVID-19 Status: Acute Current Visit: No (4) Acute kidney injury SNOMED Code(s): 40435846, 04480171 Code(s): N17.9 - ACUTE KIDNEY FAILURE, UNSPECIFIED Status: Acute Current Visit: No (5) Hypernatremia SNOMED Code(s): 472080493 Code(s): E87.0 - HYPEROSMOLALITY AND HYPERNATREMIA Status: Acute Current Visit: Yes (6) CKD (chronic kidney disease) SNOMED Code(s): 863865379 Code(s): N18.9 - CHRONIC KIDNEY DISEASE, UNSPECIFIED Status: Chronic Current Visit: Yes Qualifiers: Chronic kidney disease stage: stage 3 (moderate) Chronic kidney disease stage 3 subtype: unspecified whether 3a or 3b Qualified Code(s): N18.30 - Chronic kidney disease, stage 3 unspecified (7) Anemia SNOMED Code(s): 312830655 Code(s): D64.9 - ANEMIA, UNSPECIFIED Status: Acute Current Visit: No Qualifiers: Anemia type: unspecified type Qualified Code(s): D64.9 - Anemia, unspecified (8) Concussion SNOMED Code(s): 412072394 Code(s): S06.0X9A - CONCUSSION W LOSS OF CONSCIOUSNESS OF UNSP DURATION, INIT Status: Acute Current Visit: No Qualifiers: Encounter type: initial encounter Loss of consciousness presence/duration: with LOC of unspecified duration Qualified Code(s): S06.0X9A - Concussion with loss of consciousness of unspecified duration, initial encounter (9) Dementia SNOMED Code(s): 38908481 Code(s): F03.90 - UNSPECIFIED DEMENTIA WITHOUT BEHAVIORAL DISTURBANCE Status: Chronic Current Visit: No Qualifiers: Dementia type: unspecified type Dementia behavioral disturbance: without behavioral disturbance Qualified Code(s): F03.90 - Unspecified dementia without behavioral disturbance (10) Hyperlipidemia SNOMED Code(s): 49558277 Code(s): E78.5 - HYPERLIPIDEMIA, UNSPECIFIED Status: Chronic Current Visit: No Qualifiers: Hyperlipidemia type: unspecified Qualified Code(s): E78.5 - Hyperlipidemia, unspecified (11) Lumbar spinal stenosis SNOMED Code(s): 19842900 Code(s): M48.061 - SPINAL STENOSIS, LUMBAR REGION WITHOUT NEUROGENIC PREMA Status: Chronic Current Visit: No Qualifiers: Neurogenic claudication status: without neurogenic claudication Qualified Code(s): M48.061 - Spinal stenosis, lumbar region without neurogenic claudication (12) Rheumatoid arthritis SNOMED Code(s): 64973031 Code(s): M06.9 - RHEUMATOID ARTHRITIS, UNSPECIFIED Status: Chronic Current Visit: No Qualifiers: Rheumatoid arthritis location: unspecified site Rheumatoid factor presence: unspecified presence Qualified Code(s): M06.9 - Rheumatoid arthritis, unspecified - Problem List Review Problem List Initiated/Reviewed/Updated: Yes - My Orders Last 24 Hours: My Active Orders 03/26/20 09:50 Patient Status [ADT] Routine Oxygen Therapy [RC] .PRN Up With Assistance [RC] VTE/DVT Education [RC] 08 Acetaminophen [TylenoL] 650 mg PO Q4H PRN Resuscitation Status Routine 03/26/20 09:51 Notify Provider Vital Signs [RC] 02,06,10,14,18,22 03/26/20 10:00 Consult to Physical Therapy [PT Evaluation and Treatment] [CONS] Routine 03/26/20 10:08 CULTURE BLOOD [BC] Routine 03/26/20 10:12 CULTURE BLOOD [BC] Routine 03/26/20 10:43 Dietary Supplements [RC] 0730,1700 03/26/20 Lunch Regular Diet [DIET] 03/26/20 18:00 hydrOXYzine HCL [Atarax] 25 mg PO DAILY@1800 03/26/20 20:00 Ascorbic Acid [Vitamin C] 1,000 mg PO BID Latanoprost [Xalatan 0.005% Ophth Soln] 0 ml EYEBOTH BEDTIME atorvaSTATin [Lipitor] 40 mg PO BEDTIME calcium polycarbophiL [Fibercon] 625 mg PO BID 03/27/20 08:00 Aspirin 81 mg PO DAILY Azithromycin [Zithromax] 250 mg PO DAILY Cholecalciferol (Vitamin D3) [Vitamin D3] 20 mcg PO DAILY Lactobacillus Rhamnosus GG [Culturelle] 1 cap PO DAILY Zinc Gluconate [Zinc] 200 mg PO DAILY cefTRIAXone [Rocephin] 1 gm IVPUSH DAILY 03/27/20 08:45 Sodium Chloride 0.45% with KCl [1/2 NS with 20 mEq KCl] 1,000 ml IV ASDIRECTED 03/27/20 08:46 Chest 1V Frontal [CR] Routine 03/27/20 14:00 BASIC METABOLIC PANEL,BMP [CHEM] Routine 03/28/20 05:11 BASIC METABOLIC PANEL,BMP [CHEM] Routine C-REACTIVE PROTEIN [CHEM] Routine CBC WITH AUTO DIFF [HEME] Routine - Assessment Assessment:: 74 yo female hospital day #2 admitted with sepsis secondary to pneumonia. Is doing somewhat better today apart from the increase in sodium. - Plan Plan:: #1 Sepsis, secondary to #2 - Met sepsis criteria with tachycardia and leukocytosis. HR and WBC both downtrending. - Presumed to be secondary to pneumonia. - Blood cultures pending. - Lactic acid normal. - See antibiotics as below. #2 Community acquired pneumonia #3 COVID - Has patchy bilateral infiltrates. Read as COVID. However, in light of increases in both her CRP and WBC, felt to be more consistent with a bacterial infection than with a viral pneumonia. - Labs and vitals improved today. - Continue ceftriaxone and azithromycin. - Will check labs daily. - Repeat CXR today. - Continue vitamin C, vitamin D, and zinc for COVID. Since she is not hypoxic, other therapies are not indicated at this time. - She seems to be tolerating the fluid load without any issues at this point in time. Note fluid sensitive nature of COVID but she is likely out of the window where this is likely to be a significant issue. #4 MOE #5 Hypernatremia #6 Hypokalemia #7 CKD - Creatinine improving. Sodium up and potassium down today. - Likely dehydration secondary to poor PO intake. - Even though last clinic creatinine was normal, that was 2 years ago. Suspect her baseline is more like the 1.4 on her first ER visit 10 days ago. - IV fluids changed to NaCl 0.45% with 20 mEq KCL @ 100 cc/hr. - Recheck labs this pm and again in the am. #7 Anemia - Hgb has been stable. - Will continue to monitor daily. #8 Concussion #9 Dementia - Unclear how much of her mental status change is related to the sepsis and pneumonia vs how much is related to the concussion. It is also unclear how much this will improve and what her new baseline will be. - Patient's daughter has been counseled on this and is aware. - Plan is for transition to the care center once medically stable and they are able to take her there. #10 Hyperlipidemia #11 Lumbar stenosis #12 RA - Meloxicam held in light of renal function. - Other home medications continued. Patient will remain on acute today - anticipate 2-3 days of acute needing IV fluids to treat her sodium. Also planning at least 48 hours of IV antibiotics. Depending on timeline, will then either return to swing bed or will plan d/c to [facility]. Code status is DNR/DNI - discussed and confirmed with daughter on admission. Lovenox held due to thrombocytopenia on 03/25. HIT panel pending. Platelets now normal today; unclear if platelet count from 03/26 is accurate based on rapid return to normal. Pharmacy advised holding lovenox until HIT panel is back. If this is not HIT, will resume lovenox. In the meantime, will do SCD's for prophylaxis. If not moving more today, will also consider adding eliquis but this is atypical for VTE prophylaxis in the hospital.
[2020-03-27] MEDS: Lactobacillus Rhamnosus GG (Probiotic) Cap PO SCH (09:17)
[2020-03-27] MEDS: Aspirin 81 MG Tab.Chew PO SCH (09:17)
[2020-03-27] MEDS: cefTRIAXone 1 GM Vial IVPUSH SCH (09:18)
[2020-03-27] MEDS: Calcium Polycarbophil 625 MG Tab PO SCH ×2 (09:18→19:28)
[2020-03-27] MEDS: Cholecalciferol (Vitamin D3) 10 MCG Tab PO SCH (09:18)
[2020-03-27] MEDS: Zinc (Zinc Gluconate) 50 MG Tab PO SCH (09:18)
[2020-03-27] MEDS: Azithromycin 250 MG Tab PO SCH (09:18)
[2020-03-27] MEDS: Ascorbic Acid 500 MG Tab PO SCH ×2 (09:18→19:27)
--- NOTE | 2020-03-27 10:26 | CR ---
[id number] RAD/RAD Chest PA or AP 1V EXAM: RAD Chest PA or AP 1V INDICATION: FOLLOW-UP PNEUMONIA. COMPARISON: March 26, 2020. DISCUSSION: Cardiomediastinal silhouette is stable in size and contour. Interval resolution of previously identified left basilar pulmonary infiltrate. No pneumothorax. No pleural effusion. IMPRESSION: Interval resolution of previously identified left basilar pulmonary infiltrate. No pneumothorax or pleural effusion. Anthony Talamantes DO 03/27/20 1024 Thank you for allowing us to participate in the care of your patient.
[2020-03-27] MEDS ORDERED: Enoxaparin 40 MG/0.4 ML Syringe SUBCUT SCH (12:00)
[2020-03-27] MEDS: Enoxaparin 30 MG/0.3 ML Syringe SUBCUT SCH (12:24)
[2020-03-27 14:10] LABS: ANION GAP 16.4 mmol/L (10-20)
[2020-03-27] MEDS ORDERED: KCL IV SCH (14:15)
[2020-03-27] MEDS ORDERED: DEXTROSE 5% IV SCH (14:15)
[2020-03-27] MEDS ORDERED: WATER IV SCH (14:15)
[2020-03-27] MEDS: Dextrose 5% in Water 1,000 ML IV SCH (16:30)
[2020-03-27] MEDS: Potassium Chloride Riders 50 ML IV SCH (17:56)
[2020-03-27 18:29] LABS: ANION GAP 14.5 mmol/L (10-20)
[2020-03-27] MEDS: hydrOXYzine HCl 25 MG Tab PO SCH (18:35)
[2020-03-27] MEDS: atorvaSTATin 40 MG Tab PO SCH (19:27)
[2020-03-27] MEDS: Latanoprost 0.005% Ophth Soln 2.5 ML Bottle EYEBOTH SCH (19:27)
[2020-03-28] MEDS: Dextrose 5% in Water 1,000 ML IV SCH ×2 (05:24→15:50)
[2020-03-28 07:33] LABS: ANION GAP 15.6 mmol/L (10-20)
--- NOTE | 2020-03-28 08:02 | PCM.PN ---
- General Info Date of Service: 03/28/20 Subjective Update: 74 yo female hospital day #3 admitted back to acute for sepsis secondary to community acquired pneumonia as well as hypernatremia. Is a little more alert today but patient still does not really answer questions. Nursing staff not able to get her to swallow anything over the past 24 hours. - Review of Systems Systems Review Comment:: unable to assess as patient does not answer questions - Patient Data Vitals - Most Recent: Last Vital Signs Temp 37.2 C 03/28/20 04:52 Pulse 98 03/28/20 04:52 Resp 19 03/28/20 04:52 BP 144/93 H 03/28/20 04:52 Pulse Ox 97 03/28/20 04:52 Weight - Most Recent: 67.132 kg I&O - Last 24 Hours: Intake & Output 03/27/20 03/28/20 03/28/20 22:59 06:59 14:59 Intake Total 330 925 Balance 330 925 Lab Results Last 24 Hours: Laboratory Results - last 24 hr 03/27/20 03/27/20 03/28/20 Range/Units 13:43 18:12 06:48 WBC 11.4 H (4.0-10.0) x10^3/uL RBC 3.16 L (4.00-5.50) x10^6/uL Hgb 10.8 L (12.0-16.0) g/dL Hct 32.5 L (33.0-47.0) % MCV 102.8 H D (78.0-93.0) fL MCH 34.2 H (26.0-32.0) pg MCHC 33.2 (32.0-36.0) g/dL RDW Coeff of Romero 17.0 H (10.0-15.0) % Plt Count 246 (130-400) x10^3/uL Add Manual Diff Yes Neutrophils % (Manual) 80 (50-80) % Lymphocytes % (Manual) 11 L (25-50) % Monocytes % (Manual) 7 (2-11) % Eosinophils % (Manual) 2 (0-4) % Platelet Estimate Adequate Clumped Platelets Few H Sodium 165 H* 165 H* (136-145) mmol/L Potassium 3.4 L 3.5 (3.5-5.1) mmol/L Chloride 131 H 131 H (98-107) mmol/L Carbon Dioxide 21 23 (21-32) mmol/L Anion Gap 16.4 14.5 (10-20) mmol/L BUN 54 H 51 H (7-18) mg/dL Creatinine 1.7 H 1.7 H (0.55-1.02) mg/dL Est Cr Clr Drug Dosing 31.70 31.70 mL/min Estimated GFR (MDRD) 30 30 Glucose 112 H 123 H (74-106) mg/dL Calcium 9.5 9.6 (8.5-10.1) mg/dL C-Reactive Protein (<=0.9) mg/dL 03/28/20 Range/Units 06:48 WBC (4.0-10.0) x10^3/uL RBC (4.00-5.50) x10^6/uL Hgb (12.0-16.0) g/dL Hct (33.0-47.0) % MCV (78.0-93.0) fL MCH (26.0-32.0) pg MCHC (32.0-36.0) g/dL RDW Coeff of Romero (10.0-15.0) % Plt Count (130-400) x10^3/uL Add Manual Diff Neutrophils % (Manual) (50-80) % Lymphocytes % (Manual) (25-50) % Monocytes % (Manual) (2-11) % Eosinophils % (Manual) (0-4) % Platelet Estimate Clumped Platelets Sodium 163 H* (136-145) mmol/L Potassium 3.6 (3.5-5.1) mmol/L Chloride 129 H (98-107) mmol/L Carbon Dioxide 22 (21-32) mmol/L Anion Gap 15.6 (10-20) mmol/L BUN 41 H (7-18) mg/dL Creatinine 1.5 H (0.55-1.02) mg/dL Est Cr Clr Drug Dosing 35.93 mL/min Estimated GFR (MDRD) 34 Glucose 133 H (74-106) mg/dL Calcium 9.5 (8.5-10.1) mg/dL C-Reactive Protein 6.5 H (<=0.9) mg/dL [place] Results Last 24 Hours: Microbiology 03/26/20 10:12 Aerobic Blood Culture - Preliminary Blood NO GROWTH AFTER 1 DAY Anaerobic Blood Culture - Preliminary NO GROWTH AFTER 1 DAY 03/26/20 10:08 Aerobic Blood Culture - Preliminary Blood NO GROWTH AFTER 1 DAY Anaerobic Blood Culture - Preliminary NO GROWTH AFTER 1 DAY Med Orders - Current: Current Medications Acetaminophen (Tylenol) 650 mg PO Q4H PRN PRN Reason: Pain (Mild 1-3)/fever Acetaminophen (Tylenol) 650 mg RECTAL Q4H PRN PRN Reason: Fever Ascorbic Acid (Vitamin C) 1,000 mg PO BID [facility] Last Admin: 03/27/20 19:27 Dose: Not Given Documented by: Aspirin (Aspirin) 81 mg PO DAILY [facility] Last Admin: 03/27/20 09:17 Dose: Not Given Documented by: Atorvastatin Calcium (Lipitor) 40 mg PO BEDTIME [facility] Last Admin: 03/27/20 19:27 Dose: Not Given Documented by: Azithromycin (Zithromax) 250 mg PO DAILY [facility] Last Admin: 03/27/20 09:18 Dose: Not Given Documented by: Calcium Polycarbophil (Fibercon) 625 mg PO BID [facility] Last Admin: 03/27/20 19:28 Dose: Not Given Documented by: Ceftriaxone Sodium (Rocephin) 1 gm IVPUSH DAILY [facility] Last Admin: 03/27/20 09:18 Dose: Not Given Documented by: Cholecalciferol (Vitamin D3) 20 mcg PO DAILY [facility] Last Admin: 03/27/20 09:18 Dose: Not Given Documented by: Enoxaparin Sodium (Lovenox) 30 mg SUBCUT Q24H [facility] Last Admin: 03/27/20 12:24 Dose: 30 mg Documented by: Hydroxyzine HCl (Atarax) 25 mg PO DAILY@1800 [facility] Last Admin: 03/27/20 18:35 Dose: Not Given Documented by: Dextrose/Water (Dextrose 5% In Water) 1,000 mls @ 100 mls/hr IV ASDIRECTED [facility] Last Admin: 03/28/20 05:24 Dose: 75 mls/hr Documented by: Potassium Chloride (Kcl 20 Meq In Water 50 Ml) 50 mls @ 12.5 mls/hr IV BID@0800,1800 [facility] Last Admin: 03/27/20 17:56 Dose: 12.5 mls/hr Documented by: Lactobacillus Rhamnosus (Culturelle) 1 cap PO DAILY [facility] Last Admin: 03/27/20 09:17 Dose: Not Given Documented by: Latanoprost (Xalatan 0.005% Ophth Soln) 0 ml EYEBOTH BEDTIME [facility] Last Admin: 03/27/20 19:27 Dose: 1 drop Documented by: Zinc Gluconate (Zinc) 200 mg PO DAILY [facility] Last Admin: 03/27/20 09:18 Dose: Not Given Documented by: Discontinued Medications Azithromycin (Zithromax) 500 mg PO ONETIME ONE Stop: 03/26/20 11:16 Last Admin: 03/26/20 12:01 Dose: Not Given Documented by: Enoxaparin Sodium (Lovenox) 40 mg SUBCUT DAILY@1200 [place] Sodium Chloride (Normal Saline) 1,000 mls @ 100 mls/hr IV ASDIRECTED [facility] Last Admin: 03/26/20 23:46 Dose: 100 mls/hr Documented by: Azithromycin 500 mg/ Sodium (Chloride) 250 mls @ 250 mls/hr IV STAT ONE Stop: 03/26/20 13:28 Last Admin: 03/26/20 13:16 Dose: 250 mls/hr Documented by: Potassium Chloride/Sodium Chloride (1/2 Ns With 20 Meq Kcl) 1,000 mls @ 100 mls/hr IV ASDIRECTED [facility] Last Admin: 03/27/20 09:09 Dose: 100 mls/hr Documented by: Potassium Chloride/Dextrose (D5w With 20 Meq Kcl) 1,000 mls @ 75 mls/hr IV ASDIRECTED [facility] - Exam General: Alert, No Acute Distress HEENT: Mucous Membr. Moist/Rapid [place] Neck: Supple, Trachea Midline, No Thyromegaly. No: Lymphadenopathy Lungs: Clear to Auscultation, Normal Respiratory Effort Cardiovascular: Regular Rate, Regular Rhythm, No Murmurs GI/Abdominal Exam: Normal Bowel Sounds, Soft, Non-Tender, No Organomegaly, No Distention, No Mass Extremities: Normal Inspection, Non-Tender, No Pedal Edema, Normal Capillary Refill Peripheral Pulses: 2+: Radial (L), Radial (R) Skin: Warm, Dry, Intact Sepsis Event Note - Evaluation Sepsis Screening Result: No Definite Risk - Focused Exam Vital Signs: Vital Signs Temp Pulse Resp BP Pulse Ox 03/28/20 04:52 37.2 C 98 19 144/93 H 97 03/28/20 02:44 36.6 C 103 H 20 140/76 94 L 03/27/20 22:00 37.6 C 101 H 20 146/80 H 97 - Problem List & Annotations (1) Sepsis SNOMED Code(s): 76725964 Code(s): A41.9 - SEPSIS, UNSPECIFIED ORGANISM Status: Acute Current Visit: Yes Qualifiers: Sepsis type: sepsis due to unspecified organism Sepsis acute organ dysfunction status: with acute organ dysfunction Severe sepsis acute organ dysfunction type: acute renal failure Acute renal failure type: unspecified Severe sepsis shock status: without septic shock Qualified Code(s): A41.9 - Sepsis, unspecified organism; R65.20 - Severe sepsis without septic shock; N17.9 - Acute kidney failure, unspecified (2) Pneumonia SNOMED Code(s): 399037185 Code(s): J18.9 - PNEUMONIA, UNSPECIFIED ORGANISM Status: Acute Current Visit: Yes Qualifiers: Pneumonia type: due to unspecified organism Laterality: bilateral Lung location: unspecified part of lung Qualified Code(s): J18.9 - Pneumonia, unspecified organism (3) COVID-19 SNOMED Code(s): 525619900 Code(s): U07.1 - COVID-19 Status: Acute Current Visit: No (4) Acute kidney injury SNOMED Code(s): 27887124, 06340130 Code(s): N17.9 - ACUTE KIDNEY FAILURE, UNSPECIFIED Status: Acute Current Visit: No (5) Hypernatremia SNOMED Code(s): 557253457 Code(s): E87.0 - HYPEROSMOLALITY AND HYPERNATREMIA Status: Acute Current Visit: Yes (6) Hypokalemia SNOMED Code(s): 56900067 Code(s): E87.6 - HYPOKALEMIA Status: Acute Current Visit: Yes (7) CKD (chronic kidney disease) SNOMED Code(s): 333899497 Code(s): N18.9 - CHRONIC KIDNEY DISEASE, UNSPECIFIED Status: Chronic Cur rent Visit: Yes Qualifiers: Chronic kidney disease stage: stage 3 (moderate) Chronic kidney disease stage 3 subtype: unspecified whether 3a or 3b Qualified Code(s): N18.30 - Chronic kidney disease, stage 3 unspecified (8) Anemia SNOMED Code(s): 983241692 Code(s): D64.9 - ANEMIA, UNSPECIFIED Status: Acute Current Visit: No Qualifiers: Anemia type: unspecified type Qualified Code(s): D64.9 - Anemia, unspecified (9) Concussion SNOMED Code(s): 573310034 Code(s): S06.0X9A - CONCUSSION W LOSS OF CONSCIOUSNESS OF UNSP DURATION, INIT Status: Acute Current Visit: No Qualifiers: Encounter type: initial encounter Loss of consciousness presence/duration: with LOC of unspecified duration Qualified Code(s): S06.0X9A - Concussion with loss of consciousness of unspecified duration, initial encounter (10) Dementia SNOMED Code(s): 12527040 Code(s): F03.90 - UNSPECIFIED DEMENTIA WITHOUT BEHAVIORAL DISTURBANCE Status: Chronic Current Visit: No Qualifiers: Dementia type: unspecified type Dementia behavioral disturbance: without behavioral disturbance Qualified Code(s): F03.90 - Unspecified dementia with out behavioral disturbance (11) Hyperlipidemia SNOMED Code(s): 27526812 Code(s): E78.5 - HYPERLIPIDEMIA, UNSPECIFIED Status: Chronic Current Visit: No Qualifiers: Hyperlipidemia type: unspecified Qualified Code(s): E78.5 - Hyperlipidemia, unspecified (12) Lumbar spinal stenosis SNOMED Code(s): 27875969 Code(s): M48.061 - SPINAL STENOSIS, LUMBAR REGION WITHOUT NEUROGENIC PREMA Status: Chronic Current Visit: No Qualifiers: Neurogenic claudication status: without neurogenic claudication Qualified Code(s): M48.061 - Spinal stenosis, lumbar region without neurogenic claudication (13) Rheumatoid arthritis SNOMED Code(s): 99641914 Code(s): M06.9 - RHEUMATOID ARTHRITIS, UNSPECIFIED Status: Chronic Current Visit: No Qualifiers: Rheumatoid arthritis location: unspecified site Rheumatoid factor presence: unspecified presence Qualified Code(s): M06.9 - Rheumatoid arthritis, unspecified - Problem List Review Problem List Initiated/Reviewed/Updated: Yes - My Orders Last 24 Hours: My Active Orders 03/27/20 08:00 Aspirin 81 mg PO DAILY Azithromycin [Zithromax] 250 mg PO DAILY Cholecalciferol (Vitamin D3) [Vitamin D3] 20 mcg PO DAILY Lactobacillus Rhamnosus GG [Culturelle] 1 cap PO DAILY Zinc Gluconate [Zinc] 200 mg PO DAILY cefTRIAXone [Rocephin] 1 gm IVPUSH DAILY 03/27/20 12:00 Enoxaparin [Lovenox] 30 mg SUBCUT Q24H 03/27/20 15:45 Dextrose 5% in Water 1,000 ml IV ASDIRECTED 03/27/20 18:00 Potassium Chloride Riders [KCL 20 MEQ in Water 50 ML] 50 ml IV BID@0800,1800 03/28/20 14:00 BASIC METABOLIC PANEL,BMP [CHEM] Routine 03/29/20 05:11 BASIC METABOLIC PANEL,BMP [CHEM] Routine C-REACTIVE PROTEIN [CHEM] Routine CBC WITH AUTO DIFF [HEME] Routine - Assessment Assessment:: 74 yo female hospital day #3 admitted with sepsis secondary to pneumonia and hypernatremia. Labs stable/improved today. Patient is slightly more alert today but still not taking PO and not at baseline. - Plan Plan:: #1 Sepsis, secondary to #2 - Met sepsis criteria with tachycardia and leukocytosis. HR now <100. WBC still elevated; stable today. - Presumed to be secondary to pneumonia. - Blood cultures showing no growth to date. - Lactic acid normal. - See antibiotics as below. #2 Community acquired pneumonia #3 COVID - Repeat CXR improved yesterday. - Continue ceftriaxone and azithromycin (change from PO to IV due to inability to take oral - did not get yesterday's dose). - Will check labs daily. - Continue vitamin C, vitamin D, and zinc for COVID. Since she is not hypoxic, other therapies are not indicated at this time. - She seems to be tolerating the fluid load without any issues at this point in time. Note fluid sensitive nature of COVID but she is likely out of the window where this is likely to be a significant issue. #4 MOE #5 Hypernatremia #6 Hypokalemia #7 CKD - Creatinine improving. Sodium down slightly. Potassium improved. - Even though last clinic creatinine was normal, that was 2 years ago. Suspect her baseline is more like the 1.4 on her first ER visit prior to admit. - Continue D5W but will increase rate to 100 mL/hr. Getting BID potassium bumps. - Recheck labs this pm and again in the am. #7 Anemia - Hgb has been stable. - Will continue to monitor daily. #8 Concussion #9 Dementia - Unclear how much of her mental status change is related to the sepsis and pneumonia vs how much is related to the concussion. It is also unclear how much this will improve and what her new baseline will be. - Patient's daughter has been counseled on this and is aware. - Plan is for transition to the care center once medically stable and they are able to take her there. #10 Hyperlipidemia #11 Lumbar stenosis #12 RA - Meloxicam held in light of renal function. - Other home medications continued. Patient will remain on acute today - anticipate 2-3 days of acute needing IV fluids to treat her sodium. Will need IV antibiotics until able to take PO. Depending on timeline, will then either return to swing bed or will plan d/c to [facility]. Code status is DNR/DNI - discussed and confirmed with daughter on admi ssion. Patient's daughter has been updated daily related to her clinical status. They do not want aggressive interventions and would not want to consider a feeding tube as they know this is not what the patient would want. OK with IV fluids and IV antibiotics. Will continue to update goals daily. After discussion with pharmacy, lovenox resumed yesterday. Platelets remaining stable. Continue lovenox for VTE prophylaxis with daily lab monitoring.
[2020-03-28] MEDS: cefTRIAXone 1 GM Vial IVPUSH SCH (08:06)
[2020-03-28] MEDS: Potassium Chloride Riders 50 ML IV SCH ×2 (08:06→17:36)
[2020-03-28] MEDS: Azithromycin 500 MG in Sodium Chloride 0.9% 250 ML IV SCH (09:36)
[2020-03-28] MEDS: Calcium Polycarbophil 625 MG Tab PO SCH ×2 (10:04→20:32)
[2020-03-28] MEDS: Ascorbic Acid 500 MG Tab PO SCH ×2 (10:04→20:32)
[2020-03-28] MEDS: Cholecalciferol (Vitamin D3) 10 MCG Tab PO SCH (10:04)
[2020-03-28] MEDS: Lactobacillus Rhamnosus GG (Probiotic) Cap PO SCH (10:04)
[2020-03-28] MEDS ORDERED: Zinc (Zinc Gluconate) 50 MG Tab PO SCH (10:04)
[2020-03-28] MEDS: Aspirin 81 MG Tab.Chew PO SCH (10:04)
[2020-03-28] MEDS: Zinc (Zinc Gluconate) 50 MG Tab PO SCH (10:05)
[2020-03-28] MEDS: Azithromycin 250 MG Tab PO SCH (10:38)
[2020-03-28] MEDS: Enoxaparin 30 MG/0.3 ML Syringe SUBCUT SCH (12:01)
[2020-03-28 14:40] LABS: ANION GAP 15.1 mmol/L (10-20)
[2020-03-28] MEDS: hydrOXYzine HCl 25 MG Tab PO SCH (17:44)
[2020-03-28] MEDS: Latanoprost 0.005% Ophth Soln 2.5 ML Bottle EYEBOTH SCH (20:31)
[2020-03-28] MEDS: atorvaSTATin 40 MG Tab PO SCH (20:32)
[2020-03-29] MEDS: Dextrose 5% in Water 1,000 ML IV SCH ×2 (01:57→17:54)
[2020-03-29 07:24] LABS: ANION GAP 14.5 mmol/L (10-20)
[2020-03-29] MEDS: Lactobacillus Rhamnosus GG (Probiotic) Cap PO SCH (07:53)
[2020-03-29] MEDS: Aspirin 81 MG Tab.Chew PO SCH (07:53)
[2020-03-29] MEDS: Calcium Polycarbophil 625 MG Tab PO SCH ×2 (07:53→19:55)
[2020-03-29] MEDS: cefTRIAXone 1 GM Vial IVPUSH SCH (08:11)
[2020-03-29] MEDS: Cholecalciferol (Vitamin D3) 10 MCG Tab PO SCH (08:18)
[2020-03-29] MEDS: Zinc Sulfate 220 MG (50mg elemental Zinc) Cap PO SCH (08:18)
[2020-03-29] MEDS: Ascorbic Acid 500 MG Tab PO SCH ×2 (08:18→19:55)
[2020-03-29] MEDS: Azithromycin 500 MG in Sodium Chloride 0.9% 250 ML IV SCH (08:24)
--- NOTE | 2020-03-29 10:29 | PCM.PN ---
- General Info Date of Service: 03/29/20 Subjective Update: 74 yo female hospital day #4 admitted with sepsis secondary to pneumonia and hypernatremia. Patient is doing much better this morning. Is alert and able to answer simple yes/no questions. States she is doing better than yesterday. Denies any pain. Has not had any vomiting or diarrhea. Breathing without any issues. She is agreeable to try eat/drink today. - Review of Systems General: Reports: No Symptoms HEENT: Reports: No Symptoms Pulmonary: Reports: No Symptoms Cardiovascular: Reports: No Symptoms Gastrointestinal: Reports: No Symptoms Genitourinary: Reports: No Symptoms Musculoskeletal: Reports: No Symptoms Skin: Reports: No Symptoms Neurological: Reports: No Symptoms - Patient Data Vitals - Most Recent: Last Vital Signs Temp 36.5 C 03/29/20 05:14 Pulse 101 H 03/29/20 01:01 Resp 19 03/29/20 01:01 BP 144/64 H 03/29/20 01:01 Pulse Ox 96 03/29/20 01:01 Weight - Most Recent: 67.132 kg I&O - Last 24 Hours: Intake & Output 03/28/20 03/29/20 03/29/20 22:59 06:59 14:59 Intake Total 1220 315 Balance 1220 315 Lab Results Last 24 Hours: Laboratory Results - last 24 hr 03/28/20 03/29/20 03/29/20 Range/Units 14:15 06:42 06:42 WBC 11.7 H (4.0-10.0) x10^3/uL RBC 3.49 L (4.00-5.50) x10^6/uL Hgb 10.5 L (12.0-16.0) g/dL Hct 34.0 (33.0-47.0) % MCV 97.4 H D (78.0-93.0) fL MCH 30.1 (26.0-32.0) pg MCHC 30.9 L (32.0-36.0) g/dL RDW Coeff of Romero 14.7 (10.0-15.0) % Plt Count 217 (130-400) x10^3/uL Neut % (Auto) 78.0 (50.0-80.0) % Lymph % (Auto) 15.0 L (25.0-50.0) % [place] % (Auto) 5.2 (2.0-11.0) % Eos % (Auto) 1.5 (0.0-4.0) % Baso % (Auto) 0.3 (0.2-1.2) % Sodium 159 H 150 H (136-145) mmol/L Potassium 4.1 3.5 (3.5-5.1) mmol/L Chloride 126 H 118 H (98-107) mmol/L Carbon Dioxide 22 21 (21-32) mmol/L Anion Gap 15.1 14.5 (10-20) mmol/L BUN 34 H 25 H (7-18) mg/dL Creatinine 1.3 H 1.3 H (0.55-1.02) mg/dL Est Cr Clr Drug Dosing 41.45 41.45 mL/min Estimated GFR (MDRD) 40 40 Glucose 125 H 128 H (74-106) mg/dL Calcium 9.4 8.9 (8.5-10.1) mg/dL C-Reactive Protein 6.1 H (<=0.9) mg/dL [place] Results Last 24 Hours: Microbiology 03/26/20 10:12 Aerobic Blood Culture - Preliminary Blood NO GROWTH AFTER 2 DAYS Anaerobic Blood Culture - Preliminary NO GROWTH AFTER 2 DAYS 03/26/20 10:08 Aerobic Blood Culture - Preliminary Blood NO GROWTH AFTER 2 DAYS Anaerobic Blood Culture - Preliminary NO GROWTH AFTER 2 DAYS Med Orders - Current: Current Medications Acetaminophen (Tylenol) 650 mg PO Q4H PRN PRN Reason: Pain (Mild 1-3)/fever Acetaminophen (Tylenol) 650 mg RECTAL Q4H PRN PRN Reason: Fever Ascorbic Acid (Vitamin C) 1,000 mg PO BID [facility] Last Admin: 03/29/20 08:18 Dose: Not Given Documented by: Aspirin (Aspirin) 81 mg PO DAILY [facility] Last Admin: 03/29/20 07:53 Dose: Not Given Documented by: Atorvastatin Calcium (Lipitor) 40 mg PO BEDTIME [facility] Last Admin: 03/28/20 20:32 Dose: Not Given Documented by: Calcium Polycarbophil (Fibercon) 625 mg PO BID [facility] Last Admin: 03/29/20 07:53 Dose: Not Given Documented by: Ceftriaxone Sodium (Rocephin) 1 gm IVPUSH DAILY [facility] Last Admin: 03/29/20 08:11 Dose: 1 gm Documented by: Cholecalciferol (Vitamin D3) 20 mcg PO DAILY [facility] Last Admin: 03/29/20 08:18 Dose: Not Given Documented by: Enoxaparin Sodium (Lovenox) 30 mg SUBCUT Q24H [facility] Hydroxyzine HCl (Atarax) 25 mg PO DAILY@1800 [facility] Last Admin: 03/28/20 17:44 Dose: Not Given Documented by: Dextrose/Water (Dextrose 5% In Water) 1,000 mls @ 75 mls/hr IV ASDIRECTED [facility] Last Admin: 03/29/20 01:57 Dose: 100 mls/hr Documented by: Potassium Chloride (Kcl 20 Meq In Water 50 Ml) 50 mls @ 12.5 mls/hr IV BID@0800,1800 [facility] Last Admin: 03/28/20 17:36 Dose: 12.5 mls/hr Documented by: Azithromycin 500 mg/ Sodium (Chloride) 250 mls @ 250 mls/hr IV DAILY [facility] Stop: 04/01/20 08:46 Last Admin: 03/29/20 08:24 Dose: 250 mls/hr Documented by: Lactobacillus Rhamnosus (Culturelle) 1 cap PO DAILY [facility] Last Admin: 03/29/20 07:53 Dose: Not Given Documented by: Latanoprost (Xalatan 0.005% [facility] Soln) 0 ml EYEBOTH BEDTIME [facility] Last Admin: 03/28/20 20:31 Dose: 1 drop Documented by: Zinc Sulfate (Zincate) 220 mg PO DAILY [facility] Last Admin: 03/29/20 08:18 Dose: Not Given Documented by: Discontinued Medications Azithromycin (Zithromax) 500 mg PO ONETIME ONE Stop: 03/26/20 11:16 Last Admin: 03/26/20 12:01 Dose: Not Given Documented by: Azithromycin (Zithromax) 250 mg PO DAILY [facility] Last Admin: 03/28/20 10:38 Dose: Not Given Documented by: Enoxaparin Sodium (Lovenox) 40 mg SUBCUT DAILY@1200 [facility] Enoxaparin Sodium (Lovenox) 30 mg SUBCUT Q24H [facility] Last Admin: 03/28/20 12:01 Dose: 30 mg Documented by: Sodium Chloride (Normal Saline) 1,000 mls @ 100 mls/hr IV ASDIRECTED [facility] Last Admin: 03/26/20 23:46 Dose: 100 mls/hr Documented by: Azithromycin 500 mg/ Sodium (Chloride) 250 mls @ 250 mls/hr IV STAT ONE Stop: 03/26/20 13:28 Last Admin: 03/26/20 13:16 Dose: 250 mls/hr Documented by: Potassium Chloride/Sodium Chloride (1/2 Ns With 20 Meq Kcl) 1,000 mls @ 100 mls/hr IV ASDIRECTED [facility] Last Admin: 03/27/20 09:09 Dose: 100 mls/hr Documented by: Potassium Chloride/Dextrose (D5w With 20 Meq Kcl) 1,000 mls @ 75 mls/hr IV ASDIRECTED [facility] Zinc Gluconate (Zinc) 200 mg PO DAILY [facility] Last Admin: 03/28/20 10:05 Dose: Not Given Documented by: Zinc Gluconate (Zinc) 50 mg PO DAILY [facility] - Exam General: Alert, Cooperative, No Acute Distress HEENT: Mucous Membr. Moist/[place] Neck: Supple, Trachea Midline, No Thyromegaly. No: Lymphadenopathy Lungs: Clear to Auscultation, Normal Respiratory Effort Cardiovascular: Regular Rate, Regular Rhythm, No Murmurs GI/Abdominal Exam: Normal Bowel Sounds, Soft, Non-Tender, No Organomegaly, No Distention, No Mass Extremities: Normal Inspection, Non-Tender, No Pedal Edema, Normal Capillary Refill Peripheral Pulses: 2+: Radial (L), Radial (R) Skin: Warm, Dry, Intact Neurological: No New Focal Deficit Sepsis Event Note - Evaluation Sepsis Screening Result: No Definite Risk - Focused Exam Vital Signs: Vital Signs Temp Pulse Resp BP Pulse Ox 03/29/20 05:14 36.5 C 03/29/20 01:01 37.4 C 101 H 19 144/64 H 96 - Problem List & Annotations (1) Sepsis SNOMED Code(s): 43945353 Code(s): A41.9 - SEPSIS, UNSPECIFIED ORGANISM Status: Acute Current Visit: Yes Qualifiers: Sepsis type: sepsis due to unspecified organism Sepsis acute organ dysfunction status: with acute organ dysfunction Severe sepsis acute organ dysfunction type: acute renal failure Acute renal failure type: unspecified Severe sepsis shock status: without septic shock Qualified Code(s): A41.9 - Sepsis, unspecified organism; R65.20 - Severe sepsis without septic shock; N17.9 - Acute kidney failure, unspecified (2) Pneumonia SNOMED Code(s): 728704318 Code(s): J18.9 - PNEUMONIA, UNSPECIFIED ORGANISM Status: Acute Current Visit: Yes Qualifiers: Pneumonia type: due to unspecified organism Laterality: bilateral Lung location: unspecified part of lung Qualified Code(s): J18.9 - Pneumonia, unspecified organism (3) COVID-19 SNOMED Code(s): 375997824 Code(s): U07.1 - COVID-19 Status: Acute Current Visit: No (4) Acute kidney injury SNOMED Code(s): 27518058, 52164434 Code(s): N17.9 - ACUTE KIDNEY FAILURE, UNSPECIFIED Status: Acute Current Visit: No (5) Hypernatremia SNOMED Code(s): 203467050 Code(s): E87.0 - HYPEROSMOLALITY AND HYPERNATREMIA Status: Acute Current Visit: Yes (6) Hypokalemia SNOMED Code(s): 92836102 Code(s): E87.6 - HYPOKALEMIA Status: Acute Current Visit: Yes (7) CKD (chronic kidney disease) SNOMED Code(s): 303517121 Code(s): N18.9 - CHRONIC KIDNEY DISEASE, UNSPECIFIED Status: Chronic Current Visit: Yes Qualifiers: Chronic kidney disease stage: stage 3 (moderate) Chronic kidney disease stage 3 subtype: unspecified whether 3a or 3b Qualified Code(s): N18.30 - Chronic kidney disease, stage 3 unspecified (8) Anemia SNOMED Code(s): 774146044 Code(s): D64.9 - ANEMIA, UNSPECIFIED Status: Acute Current Visit: No Qualifiers: Anemia type: unspecified type Qualified Code(s): D64.9 - Anemia, unspecified (9) Concussion SNOMED Code(s): 628302908 Code(s): S06.0X9A - CONCUSSION W LOSS OF CONSCIOUSNESS OF UNSP DURATION, INIT Status: Acute Current Visit: No Qualifiers: Encounter type: initial encounter Loss of consciousness presence/duration: with LOC of unspecified duration Qualified Code(s): S06.0X9A - Concussion with loss of consciousness of unspecified duration, initial encounter (10) Dementia SNOMED Code(s): 82879553 Code(s): F03.90 - UNSPECIFIED DEMENTIA WITHOUT BEHAVIORAL DISTURBANCE Status: Chronic Current Visit: No Qualifiers: Dementia type: unspecified type Dementia behavioral disturbance: without behavioral disturbance Qualified Code(s): F03.90 - Unspecified dementia without behavioral disturbance (11) Hyperlipidemia SNOMED Code(s): 73958931 Code(s): E78.5 - HYPERLIPIDEMIA, UNSPECIFIED Status: Chronic Current Visit: No Qualifiers: Hyperlipidemia type: unspecified Qualified Code(s): E78.5 - Hyperlipidemia, unspecified (12) Lumbar spinal stenosis SNOMED Code(s): 28070803 Code(s): M48.061 - SPINAL STENOSIS, LUMBAR REGION WITHOUT NEUROGENIC PREMA Status: Chronic Current Visit: No Qualifiers: Neurogenic claudication status: without neurogenic claudication Qualified Code(s): M48.061 - Spinal stenosis, lumbar region without neurogenic claudication (13) Rheumatoid arthritis SNOMED Code(s): 41334611 Code(s): M06.9 - RHEUMATOID ARTHRITIS, UNSPECIFIED Status: Chronic Current Visit: No Qualifiers: Rheumatoid arthritis location: unspecified site Rheumatoid factor presence: unspecified presence Qualified Code(s): M06.9 - Rheumatoid arthritis, unspecified - Problem List Review Problem List Initiated/Reviewed/Updated: Yes - My Orders Last 24 Hours: My Active Orders 03/28/20 15:42 Antiembolic Devices [RC] PER UNIT ROUTINE Sequential Compression Device [OM.PC] Routine 03/29/20 08:00 Zinc Sulfate [Zincate] 220 mg PO DAILY 03/29/20 10:15 Enoxaparin [Lovenox] 30 mg SUBCUT Q24H 03/29/20 14:00 BASIC METABOLIC PANEL,BMP [CHEM] Routine - Assessment Assessment:: 74 yo female hospital day #4 admitted with sepsis secondary to pneumonia and hypernatremia. Labs much better today. Patient significantly more alert today and is answering questions appropriately. - Plan Plan:: #1 Sepsis, secondary to #2 - Met sepsis criteria with tachycardia and leukocytosis. HR now <100. WBC staying right around 11 but she is otherwise improving and CRP is downtrending. - Presumed to be secondary to pneumonia. - Blood cultures showing no growth to date. - Lactic acid normal. - See antibiotics as below. #2 Community acquired pneumonia #3 COVID - Repeat CXR improved 12/2. - Continue ceftriaxone and azithromycin. If she is able to swallow better today, will plan to switch to oral antibiotics tomorrow. - Will check labs daily. - Continue vitamin C, vitamin D, and zinc for COVID. - She should be out of her infectious window for COVID and can likely come out of isolation at this time. Will check with veterinary technician assistant and proceed as advised. #4 MOE #5 Hypernatremia #6 Hypokalemia #7 CKD - Creatinine likely at baseline at 1.3 the past 2 days. Potassium normal. Sodium much better today. - Continue D5W but will decrease rate to 75 mL/hr. Getting BID potassium bumps. - Recheck labs this pm. If sodium down further, will consider either d/c of fluids or further decreasing the rate depending on how she has been eating/drinking today. #7 Anemia - Hgb has been stable. - Will continue to monitor daily. #8 Concussion #9 Dementia - Patient is much better today. How she does shelter really depends on how well she is able to increase her PO intake. - Patient's daughter has been counseled on this and is aware. - Plan is for transition to the care center once medically stable and they are able to take her there. Anticipate this transition early next week. #10 Hyperlipidemia #11 Lumbar stenosis #12 RA - Meloxicam held in light of renal function. - Other home medications continued. Patient will remain on acute today due to continuing on IV fluids and IV antibiotics. Depending on course over the next 24 hours, may transition to swing bed over the weekend prior to transfer to the care center next week vs continuing on acute until d/c to [facility] next week. Code status is DNR/DNI - discussed and confirmed with daughter on admission. Patient's daughter has been updated daily related to her clinical status. They do not want aggressive interventions and would not want to consider a feeding tube as they know this is not what the patient would want. OK with IV fluids and IV antibiotics. Will continue to update goals as indicated. HIT antibodies returned borderline. Given rapid return of platelets to normal, pharmacy feels it is reasonable to continu e lovenox with close monitoring of her platelets. Therefore, 30 mg lovenox daily for VTE prophylaxis.
[2020-03-29] MEDS: Potassium Chloride Riders 50 ML IV SCH (11:37)
[2020-03-29] MEDS: Enoxaparin 30 MG/0.3 ML Syringe SUBCUT SCH (11:37)
[2020-03-29 14:28] LABS: ANION GAP 16.4 mmol/L (10-20)
[2020-03-29] MEDS: hydrOXYzine HCl 25 MG Tab PO SCH (17:11)
[2020-03-29] MEDS: atorvaSTATin 40 MG Tab PO SCH (19:55)
[2020-03-29] MEDS: Latanoprost 0.005% Ophth Soln 2.5 ML Bottle EYEBOTH SCH (19:56)
[2020-03-30] MEDS: Dextrose 5% in Water 1,000 ML IV SCH ×2 (06:37→21:48)
[2020-03-30] MEDS: cefTRIAXone 1 GM Vial IVPUSH SCH (08:12)
[2020-03-30] MEDS: Azithromycin 500 MG in Sodium Chloride 0.9% 250 ML IV SCH (08:18)
[2020-03-30] MEDS: Ascorbic Acid 500 MG Tab PO SCH ×2 (08:20→20:02)
[2020-03-30] MEDS: Aspirin 81 MG Tab.Chew PO SCH (08:20)
[2020-03-30] MEDS: Lactobacillus Rhamnosus GG (Probiotic) Cap PO SCH (08:20)
[2020-03-30] MEDS: Calcium Polycarbophil 625 MG Tab PO SCH ×2 (08:20→20:03)
[2020-03-30] MEDS: Cholecalciferol (Vitamin D3) 10 MCG Tab PO SCH (08:20)
[2020-03-30] MEDS: Zinc Sulfate 220 MG (50mg elemental Zinc) Cap PO SCH (08:21)
[2020-03-30 09:32] LABS: ANION GAP 12.3 mmol/L (10-20)
[2020-03-30] MEDS ORDERED: Potassium Chloride Riders 20 MEQ in Premix Bag 1 BAG IV SCH (09:58)
[2020-03-30] MEDS: Enoxaparin 30 MG/0.3 ML Syringe SUBCUT SCH (11:05)
--- NOTE | 2020-03-30 12:09 | PN ---
Progress Note for AURORA HANSON Date: 03/30/2020 Room #: VM.206 SUBJECTIVE: Hospital day #5 for a 74-year-old female patient admitted to [facility] with sepsis secondary to pneumonia and hypernatremia. The patient is very lethargic this morning. History obtained from nursing staff. The patient has not complained of any pain. The patient has not complained of any shortness of breath. No cough has been noticed. The patient has been resting comfortably. The patient has not had any vomiting or diarrhea. The patient was encouraged to answer questions this morning, however, she is very fatigued. PHYSICAL EXAMINATION: Vital Signs: Weight 153.6 pounds, temperature 98.0, pulse 91, blood pressure 144/77, respiratory rate 18, oxygen saturation 98% on room air. General: The patient is very fatigued and lethargic. The patient is cooperative. The patient does not appear to be in any acute distress. Cardiovascular: Regular rate and rhythm. No murmur. Respiratory: Normal respiratory effort. Lungs are clear bilaterally. Abdomen: Soft. Nontender. Bowel sounds are normoactive x4. Skin: Intact. Warm and dry. Neurological: The patient is very lethargic. The patient is cooperative. No focal neurological deficits. LABORATORY STUDIES: 1. CBC: White blood cell count 8.7, hemoglobin 9.5, hematocrit 29.5, platelets are 158,000. 2. BMP: Sodium 144, potassium 3.3, chloride 114, CO2 is 21, anion gap 12.3, BUN 22, creatinine 1.1, GFR 49, glucose 118, calcium 9.4. ASSESSMENT: 1. Sepsis secondary to community-acquired pneumonia. 2. Community-acquired pneumonia. 3. COVID-19 infection. 4. Acute kidney injury. 5. Hypernatremia. 6. Hypokalemia. 7. Chronic kidney disease. 8. Anemia. 9. Concussion. 10.Dementia. PLAN: Hospital date #5 for a 74-year-old female patient who was admitted for sepsis secondary to pneumonia. The patient has a history of COVID-19 infection. She is currently out of COVID isolation. Given the patient's lethargy this morning, we will continue the patient on IV antibiotics. The patient is not a candidate to be transferred to a higher level of care. The patient is not ready for discharge to the local [place] [facility] care facility, therefore the patient will continue on acute cares. Also, the patient is having poor p.o. intake. We will continue on IV fluids for her hypernatremia. We will replace potassium today with 20 mEq of IV KCl. We will encourage diet as much as possible. Plan at this point is to transition the patient to the [facility] when medically stable. Nursing staff will update family today. We will recheck laboratory work tomorrow. Continue on Lovenox for VTE prophylaxis. TB: 03/30/2020 11:13:27 MODL: 03/30/2020 12:02:18 /[id number]
[2020-03-30] MEDS: hydrOXYzine HCl 25 MG Tab PO SCH (18:14)
[2020-03-30] MEDS: atorvaSTATin 40 MG Tab PO SCH (20:02)
[2020-03-30] MEDS: Latanoprost 0.005% Ophth Soln 2.5 ML Bottle EYEBOTH SCH (20:02)
[2020-03-31 08:26] LABS: CHLORIDE,CL 106 mmol/L (98-107); SODIUM,NA 138 mmol/L (136-145)
[2020-03-31 08:48] LABS: ANION GAP 12.9 mmol/L (10-20)
[2020-03-31] MEDS: cefTRIAXone 1 GM Vial IVPUSH SCH (09:11)
[2020-03-31] MEDS: Azithromycin 500 MG in Sodium Chloride 0.9% 250 ML IV SCH (09:17)
[2020-03-31] MEDS: Cholecalciferol (Vitamin D3) 10 MCG Tab PO SCH (09:18)
[2020-03-31] MEDS: Ascorbic Acid 500 MG Tab PO SCH ×2 (09:18→22:34)
[2020-03-31] MEDS: Calcium Polycarbophil 625 MG Tab PO SCH ×2 (09:18→22:34)
[2020-03-31] MEDS: Lactobacillus Rhamnosus GG (Probiotic) Cap PO SCH (09:18)
[2020-03-31] MEDS: Aspirin 81 MG Tab.Chew PO SCH (09:18)
[2020-03-31] MEDS: Zinc Sulfate 220 MG (50mg elemental Zinc) Cap PO SCH (09:19)
[2020-03-31] MEDS ORDERED: Potassium Chloride Riders 20 MEQ in Premix Bag 2 BAG IV ONE (09:38)
[2020-03-31] MEDS: Potassium Chloride Riders 10 MEQ in Premix Bag 1 BAG IV SCH ×2 (10:55→12:05)
[2020-03-31] MEDS: Enoxaparin 30 MG/0.3 ML Syringe SUBCUT SCH (11:06)
--- NOTE | 2020-03-31 11:45 | PN ---
Progress Note for AURORA HANSON Date: 03/31/2020 Room #: VM.206 SUBJECTIVE: Hospital day #6 for a 74-year-old female patient admitted to [facility] with sepsis secondary to pneumonia and hypernatremia. The patient is alert this morning but has garbled speech. Most of the history is obtained from the nursing staff. The patient slept well overnight. The patient has not complained of any pain. The patient does have an intermittent productive cough. The patient has not appeared to have any shortness of breath. The patient has not had any vomiting or diarrhea. The patient is incontinent of urine and stool. The patient has not had any focal neurological deficits. OBJECTIVE: Vital Signs: Temperature 99.8, pulse is 88, blood pressure 127/66, respiratory rate 16, oxygen saturation 96% on room air. Weight 152.1 pounds. General: The patient is alert. The patient is cooperative. Patient does not appear to be in any acute distress. Cardiovascular: Regular rate and rhythm, no murmur. Respiratory: Normal respiratory effort. Lungs are clear bilaterally. Abdomen: Soft, nontender. Bowel sounds are active x4. Skin: Intact, warm, and dry. Neurological: The patient is alert. Patient is very slow to respond. The patient is cooperative. No new focal neurological deficits. LABORATORY STUDIES: CBC: White blood cell count 9.3, hemoglobin 9.2, hematocrit 28.3, platelets 228,000, neutrophils 80.8%. BMP: Sodium 138, potassium 2.9, chloride 106, CO2 of 22, anion gap 12.6, BUN 15, creatinine 0.9, GFR greater than 60. Glucose 129, calcium 9.3. ASSESSMENT: 1. Sepsis secondary to community-acquired pneumonia. 2. Community-acquired pneumonia. 3. COVID-19 infection. 4. Acute kidney injury. 5. Hypernatremia. 6. Hypokalemia. 7. Chronic kidney disease. 8. Anemia. 9. Concussion. 10.Dementia. PLAN: Hospital day #6 for a 74-year-old female patient who was admitted for sepsis secondary to pneumonia. The patient has a history of COVID-19 infection. The patient is currently in COVID isolation. We will replace the patient's potassium IV. The patient continues with very poor intake. Nursing staff attempts to feed the patient, however, she begins to cough and pockets her food. The patient is an aspiration risk. Continue on IV fluids. At this point, plan is to transition the patient to the [facility] when medically stable. The patient will need a speech consultation. Recheck laboratory work tomorrow. Continue on Lovenox for VTE prophylaxis. TB: 03/31/2020 10:54:23 MODL: 03/31/2020 11:39:16 /[id number]
[2020-03-31] MEDS: Dextrose 5% in Water 1,000 ML IV SCH (12:04)
[2020-03-31] MEDS: Latanoprost 0.005% Ophth Soln 2.5 ML Bottle EYEBOTH SCH (20:30)
[2020-03-31] MEDS: hydrOXYzine HCl 25 MG Tab PO SCH (20:41)
[2020-03-31] MEDS: atorvaSTATin 40 MG Tab PO SCH (22:34)
[2020-04-01] MEDS: Dextrose 5% in Water 1,000 ML IV SCH (00:55)
[2020-04-01 07:18] LABS: CHLORIDE,CL 99 mmol/L (98-107); SODIUM,NA 132 mmol/L (136-145)
[2020-04-01 07:21] LABS: ANION GAP 11.9 mmol/L (10-20)
[2020-04-01] MEDS ORDERED: Potassium Chloride Riders 20 MEQ in Premix Bag 1 BAG IV ONE (07:37)
[2020-04-01] MEDS: Zinc Sulfate 220 MG (50mg elemental Zinc) Cap PO SCH (07:58)
[2020-04-01] MEDS: Cholecalciferol (Vitamin D3) 10 MCG Tab PO SCH (07:58)
[2020-04-01] MEDS: Calcium Polycarbophil 625 MG Tab PO SCH ×2 (07:58→20:14)
[2020-04-01] MEDS: Lactobacillus Rhamnosus GG (Probiotic) Cap PO SCH (07:58)
[2020-04-01] MEDS: Aspirin 81 MG Tab.Chew PO SCH (07:58)
[2020-04-01] MEDS: Ascorbic Acid 500 MG Tab PO SCH ×2 (07:58→20:14)
[2020-04-01] MEDS: Azithromycin 500 MG in Sodium Chloride 0.9% 250 ML IV SCH (08:59)
[2020-04-01] MEDS: Enoxaparin 30 MG/0.3 ML Syringe SUBCUT SCH (13:46)
[2020-04-01] MEDS: hydrOXYzine HCl 25 MG Tab PO SCH (17:17)
--- NOTE | 2020-04-01 17:31 | PCM.PN ---
- General Info Date of Service: 04/01/20 Subjective Update: 74 yo female hospital day #7 admitted with sepsis secondary to CAP as well as hypernatremia. Has been much more alert and interactive over the weekend. However, is still not eating or drinking much. Has told the nurses she is hungry but then is not able to swallow when they put food in her mouth. She denies any pain. She states she is doing good. - Review of Systems General: Reports: No Symptoms HEENT: Reports: No Symptoms Pulmonary: Reports: No Symptoms Cardiovascular: Reports: No Symptoms Gastrointestinal: Reports: No Symptoms Genitourinary: Reports: No Symptoms Musculoskeletal: Reports: No Symptoms Skin: Reports: No Symptoms Neurological: Reports: No Symptoms - Patient Data Vitals - Most Recent: Last Vital Signs Temp 37.4 C 04/01/20 14:00 Pulse 96 04/01/20 14:00 Resp 16 04/01/20 14:00 BP 143/74 H 04/01/20 14:00 Pulse Ox 98 04/01/20 14:00 Weight - Most Recent: 72.802 kg I&O - Last 24 Hours: Intake & Output 04/01/20 04/01/20 04/01/20 06:59 14:59 22:59 Intake Total 850 Balance 850 Lab Results Last 24 Hours: Laboratory Results - last 24 hr 04/01/20 04/01/20 Range/Units 06:14 06:14 WBC 8.8 (4.0-10.0) x10^3/uL RBC 3.23 L (4.00-5.50) x10^6/uL Hgb 9.5 L (12.0-16.0) g/dL Hct 28.6 L (33.0-47.0) % MCV 88.5 (78.0-93.0) fL MCH 29.4 (26.0-32.0) pg MCHC 33.2 (32.0-36.0) g/dL RDW Coeff of Romero 13.0 (10.0-15.0) % Plt Count 187 (130-400) x10^3/uL Neut % (Auto) 80.6 H (50.0-80.0) % Lymph % (Auto) 11.7 L (25.0-50.0) % [place] % (Auto) 7.0 (2.0-11.0) % Eos % (Auto) 0.6 (0.0-4.0) % Baso % (Auto) 0.1 L (0.2-1.2) % Sodium 132 L (136-145) mmol/L Potassium 2.9 L* (3.5-5.1) mmol/L Chloride 99 (98-107) mmol/L Carbon Dioxide 24 (21-32) mmol/L Anion Gap 11.9 (10-20) mmol/L BUN 11 (7-18) mg/dL Creatinine 0.9 (0.55-1.02) mg/dL Est Cr Clr Drug Dosing 61.10 mL/min Estimated GFR (MDRD) > 60 Glucose 117 H (74-106) mg/dL Calcium 9.0 (8.5-10.1) mg/dL Med Orders - Current: Current Medications Acetaminophen (Tylenol) 650 mg PO Q4H PRN PRN Reason: Pain (Mild 1-3)/fever Acetaminophen (Tylenol) 650 mg RECTAL Q4H PRN PRN Reason: Fever Last Admin: 03/29/20 11:44 Dose: 650 mg Documented by: Ascorbic Acid (Vitamin C) 1,000 mg PO BID [facility] Last Admin: 04/01/20 07:58 Dose: Not Given Documented by: Aspirin (Aspirin) 81 mg PO DAILY [facility] Last Admin: 04/01/20 07:58 Dose: Not Given Documented by: Atorvastatin Calcium (Lipitor) 40 mg PO BEDTIME [facility] Last Admin: 03/31/20 22:34 Dose: Not Given Documented by: Calcium Polycarbophil (Fibercon) 625 mg PO BID [facility] Last Admin: 04/01/20 07:58 Dose: Not Given Documented by: Cholecalciferol (Vitamin D3) 20 mcg PO DAILY [facility] Last Admin: 04/01/20 07:58 Dose: Not Given Documented by: Enoxaparin Sodium (Lovenox) 30 mg SUBCUT Q24H [facility] Last Admin: 04/01/20 13:46 Dose: 30 mg Documented by: Hydroxyzine HCl (Atarax) 25 mg PO DAILY@1800 [facility] Last Admin: 04/01/20 17:17 Dose: Not Given Documented by: Lactobacillus Rhamnosus (Culturelle) 1 cap PO DAILY [facility] Last Admin: 04/01/20 07:58 Dose: Not Given Documented by: Latanoprost (Xalatan 0.005% Ophth Soln) 0 ml EYEBOTH BEDTIME [facility] Last Admin: 03/31/20 20:30 Dose: 2 drop Documented by: Zinc Sulfate (Zincate) 220 mg PO DAILY [facility] Last Admin: 04/01/20 07:58 Dose: Not Given Documented by: Discontinued Medications Azithromycin (Zithromax) 500 mg PO ONETIME ONE Stop: 03/26/20 11:16 Last Admin: 03/26/20 12:01 Dose: Not Given Documented by: Azithromycin (Zithromax) 250 mg PO DAILY [facility] Last Admin: 03/28/20 10:38 Dose: Not Given Documented by: Ceftriaxone Sodium (Rocephin) 1 gm IVPUSH DAILY [facility] Last Admin: 03/31/20 09:11 Dose: 1 gm Documented by: Enoxaparin Sodium (Lovenox) 40 mg SUBCUT DAILY@1200 [facility] Enoxaparin Sodium (Lovenox) 30 mg SUBCUT Q24H [facility] Last Admin: 03/28/20 12:01 Dose: 30 mg Documented by: Sodium Chloride (Normal Saline) 1,000 mls @ 100 mls/hr IV ASDIRECTED [facility] Last Admin: 03/26/20 23:46 Dose: 100 mls/hr Documented by: Azithromycin 500 mg/ Sodium (Chloride) 250 mls @ 250 mls/hr IV STAT ONE Stop: 03/26/20 13:28 Last Admin: 03/26/20 13:16 Dose: 250 mls/hr Documented by: Potassium Chloride/Sodium Chloride (1/2 Ns With 20 Meq Kcl) 1,000 mls @ 100 mls/hr IV ASDIRECTED [facility] Last Admin: 03/27/20 09:09 Dose: 100 mls/hr Documented by: Potassium Chloride/Dextrose (D5w With 20 Meq Kcl) 1,000 mls @ 75 mls/hr IV ASDIRECTED [facility] Dextrose/Water (Dextrose 5% In Water) 1,000 mls @ 75 mls/hr IV ASDIRECTED [facility] Last Admin: 04/01/20 00:55 Dose: 75 mls/hr Documented by: Potassium Chloride (Kcl 20 Meq In Water 50 Ml) 50 mls @ 12.5 mls/hr IV BID@0800,1800 [facility] Last Admin: 03/29/20 11:37 Dose: Not Given Documented by: Azithromycin 500 mg/ Sodium (Chloride) 250 mls @ 250 mls/hr IV DAILY [facility] Stop: 04/01/20 08:46 Last Admin: 04/01/20 08:59 Dose: 250 mls/hr Documented by: Potassium Chloride 20 meq/ (Premix) 50 mls @ 25 mls/hr IV Q2H [facility] Stop: 03/30/20 11:57 Last Admin: 03/30/20 10:40 Dose: 25 mls/hr Documented by: Potassium Chloride 20 meq/ (Premix) 0 mls @ 50 mls/hr IV ONETIME ONE Stop: 03/31/20 09:39 Last Admin: 03/31/20 10:42 Dose: Not Given Documented by: Potassium Chloride 10 meq/ (Premix) 50 mls @ 50 mls/hr IV Q1H [facility] Stop: 03/31/20 11:59 Last Admin: 03/31/20 12:05 Dose: 50 mls/hr Documented by: Potassium Chloride 20 meq/ (Premix) 50 mls @ 50 mls/hr IV ONETIME ONE Stop: 04/01/20 08:36 Last Admin: 04/01/20 07:54 Dose: 50 mls/hr Documented by: Zinc Gluconate (Zinc) 200 mg PO DAILY [facility] Last Admin: 03/28/20 10:05 Dose: Not Given Documented by: Zinc Gluconate (Zinc) 50 mg PO DAILY [facility] - Exam General: Alert, Cooperative, No Acute Distress HEENT: Pupils Equal, Pupils Reactive, Mucous Membr. Moist/[place] Neck: Supple, Trachea Midline, No Thyromegaly. No: Lymphadenopathy Lungs: Clear to Auscultation, Normal Respiratory Effort Cardiovascular: Regular Rate, Regular Rhythm, No Murmurs GI/Abdominal Exam: Normal Bowel Sounds, Soft, Non-Tender, No Organomegaly, No Distention, No Mass Extremities: Normal Inspection, No Pedal Edema, Normal Capillary Refill Peripheral Pulses: 2+: Radial (L), Radial (R) Skin: Warm, Dry, Intact Neurological: No New Focal Deficit Sepsis Event Note - Evaluation Sepsis Screening Result: No Definite Risk - Focused Exam Vital Signs: Vital Signs Temp Temp Pulse Resp BP Pulse Ox 04/01/20 14:00 37.4 C 37.4 C 96 16 143/74 H 98 04/01/20 10:00 37.1 C 97 16 135/70 98 12/07/20 05:45 36.7 C 98 14 137/81 99 - Problem List & Annotations (1) Sepsis SNOMED Code(s): 54506668 Code(s): A41.9 - SEPSIS, UNSPECIFIED ORGANISM Status: Acute Current Visit: Yes Qualifiers: Sepsis type: sepsis due to unspecified organism Sepsis acute organ dysfunction status: with acute organ dysfunction Severe sepsis acute organ dysfunction type: acute renal failure Acute renal failure type: unspecified Severe sepsis shock status: without septic shock Qualified Code(s): A41.9 - Sepsis, unspecified organism; R65.20 - Severe sepsis without septic shock; N17.9 - Acute kidney failure, unspecified (2) Pneumonia SNOMED Code(s): 400920908 Code(s): J18.9 - PNEUMONIA, UNSPECIFIED ORGANISM Status: Acute Current Visit: Yes Qualifiers: Pneumonia type: due to unspecified organism Laterality: bilateral Lung location: unspecified part of lung Qualified Code(s): J18.9 - Pneumonia, unspecified organism (3) COVID-19 SNOMED Code(s): 284703881 Code(s): U07.1 - COVID-19 Status: Acute Current Visit: No (4) Acute kidney injury SNOMED Code(s): 53426036, 13301045 Code(s): N17.9 - ACUTE KIDNEY FAILURE, UNSPECIFIED Status: Acute Current Visit: No (5) Hypernatremia SNOMED Code(s): 879000883 Code(s): E87.0 - HYPEROSMOLALITY AND HYPERNATREMIA Status: Acute Current Visit: Yes (6) Hypokalemia SNOMED Code(s): 27306016 Code(s): E87.6 - HYPOKALEMIA Status: Acute Current Visit: Yes (7) CKD (chronic kidney disease) SNOMED Code(s): 744874354 Code(s): N18.9 - CHRONIC KIDNEY DISEASE, UNSPECIFIED Status: Chronic Current Visit: Yes Qualifiers: Chronic kidney disease stage: stage 3 (moderate) Chronic kidney disease stage 3 subtype: unspecified whether 3a or 3b Qualified Code(s): N18.30 - Chronic kidney disease, stage 3 unspecified (8) Anemia SNOMED Code(s): 325293049 Code(s): D64.9 - ANEMIA, UNSPECIFIED Status: Acute Current Visit: No Qualifiers: Anemia type: unspecified type Qualified Code(s): D64.9 - Anemia, unspecified (9) Concussion SNOMED Code(s): 207371757 Code(s): S06.0X9A - CONCUSSION W LOSS OF CONSCIOUSNESS OF UNSP DURATION, INIT Status: Acute Current Visit: No Qualifiers: Encounter type: initial encounter Loss of consciousness presence/duration: with LOC of unspecified duration Qualified Code(s): S06.0X9A - Concussion with loss of consciousness of unspecified duration, initial encounter (10) Dementia SNOMED Code(s): 54196154 Code(s): F03.90 - UNSPECIFIED DEMENTIA WITHOUT BEHAVIORAL DISTURBANCE Status: Chronic Current Visit: No Qualifiers: Dementia type: unspecified type Dementia behavioral disturbance: without behavioral disturbance Qualified Code(s): F03.90 - Unspecified dementia without behavioral disturbance (11) Hyperlipidemia SNOMED Code(s): 66985812 Code(s): E78.5 - HYPERLIPIDEMIA, UNSPECIFIED Status: Chronic Current Visit: No Qualifiers: Hyperlipidemia type: unspecified Qualified Code(s): E78.5 - Hyperlipidemia, unspecified (12) Lumbar spinal stenosis SNOMED Code(s): 81680474 Code(s): M48.061 - SPINAL STENOSIS, LUMBAR REGION WITHOUT NEUROGENIC PREMA Status: Chronic Current Visit: No Qualifiers: Neurogenic claudication status: without neurogenic claudication Qualified Code(s): M48.061 - Spinal stenosis, lumbar region without neurogenic claudication (13) Rheumatoid arthritis SNOMED Code(s): 69739847 Code(s): M06.9 - RHEUMATOID ARTHRITIS, UNSPECIFIED Status: Chronic Current Visit: No Qualifiers: Rheumatoid arthritis location: unspecified site Rheumatoid factor presence: unspecified presence Qualified Code(s): M06.9 - Rheumatoid arthritis, unspecified - Problem List Review Problem List Initiated/Reviewed/Updated: Yes - Assessment Assessment:: 74 yo female hospital day #7 admitted with sepsis secondary to pneumonia and hypernatremia. Labs normalized. Patient is at her baseline mentation but still not able to swallow much. - Plan Plan:: #1 Sepsis, secondary to #2 - Met sepsis criteria with tachycardia and leukocytosis. This is now resolved. - Presumed to be secondary to pneumonia. - Blood cultures negative. - Lactic acid normal. - See antibiotics as below. #2 Community acquired pneumonia #3 COVID - Repeat CXR improved 03/27. - Has completed appropriate antibiotic therapy with >48 hours without fever and with normal WBC. - Therefore, will discontinue antibiotics. - Continue vitamin C, vitamin D, and zinc for COVID. #4 MOE #5 Hypernatremia #6 Hypokalemia #7 CKD - Creatinine better than her baseline. Potassium low - possibly dilutional from the D5W. Sodium normal. - Will d/c fluids. IV potassium to be given today. - Recheck labs tomorrow. #7 Anemia - Hgb has been stable. - Will continue to monitor daily. #8 Concussion #9 Dementia - Patient is much better today. How she does half-way really depends on how well she is able to increase her PO intake. - Patient's daughter has been counseled on this and is aware. #10 Hyperlipidemia #11 Lumbar stenosis #12 RA - Meloxicam held in light of renal function. - Other home medications continued. Discussed patient with her daughter, case planner, and director social today. Patient's daughter has previously expressed that the patient would not want a feeding tube or other artificial means for nutrition. All parties in agreement her best chance for recovery is at the care center where she can have speech therapy, OT, and PT. They are able to accept her tomorrow and the patient's daughter is in agreement with this. Code status is DNR/DNI - discussed and confirmed with daughter on admission. Lovenox for VTE prophylaxis.
[2020-04-01] MEDS: atorvaSTATin 40 MG Tab PO SCH (20:14)
[2020-04-01] MEDS: Latanoprost 0.005% Ophth Soln 2.5 ML Bottle EYEBOTH SCH (20:15)
--- NOTE | 2020-04-02 06:52 | PCM.DCSUM1 ---
Discharge Summary - Hospital Course Brief History: Ms. Stovall is a 74 yo female who was admitted to [facility] for sepsis secondary to pnuemonia as well as hypernatremia after she was noted to have a change in mentation while on swing bed. She had been hospitalized acute prior to that for a concussion and UTI. She was then transitioned to swing bed for rehabilitation to see if she would recover and be able to return to [facility] or whether she would need to transition to the care center. During her swing bed stay, she was not eating/drinking well and was intermittently able to participate with therapy. Her labs were periodically monitored. On 03/26, she was noted to have a significant change in mentation at which time labs revealed an increase in WBC and hypernatremia. Therefore, she was admitted back to [facility] for further cares. - Discharge Data Discharge Date: 04/02/20 Discharge Disposition: DC/Tfer to SNF 03 Condition: Good - Referral to Home Health Primary Care Physician: Kristal Baez MD - Discharge Diagnosis/Problem(s) (1) Sepsis SNOMED Code(s): 74917996 ICD Code: A41.9 - SEPSIS, UNSPECIFIED ORGANISM Status: Acute Current Visit: Yes Qualifiers: Sepsis type: sepsis due to unspecified organism Sepsis acute organ dysfunction status: with acute organ dysfunction Severe sepsis acute organ dysfunction type: acute renal failure Acute renal failure type: unspecified Severe sepsis shock status: without septic shock Qualified Code(s): A41.9 - Sepsis, unspecified organism; R65.20 - Severe sepsis without septic shock; N17.9 - Acute kidney failure, unspecified (2) Pneumonia SNOMED Code(s): 198215148 ICD Code: J18.9 - PNEUMONIA, UNSPECIFIED ORGANISM Status: Acute Current Visit: Yes Qualifiers: Pneumonia type: due to unspecified organism Laterality: bilateral Lung location: unspecified part of lung Qualified Code(s): J18.9 - Pneumonia, unspecified organism (3) COVID-19 SNOMED Code(s): 859182810 ICD Code: U07.1 - COVID-19 Status: Acute Current Visit: No (4) Acute kidney injury SNOMED Code(s): 21909933, 48364671 ICD Code: N17.9 - ACUTE KIDNEY FAILURE, UNSPECIFIED Status: Acute Current Visit: No (5) Hypernatremia SNOMED Code(s): 015014413 ICD Code: E87.0 - HYPEROSMOLALITY AND HYPERNATREMIA Status: Acute Current Visit: Yes (6) Hypokalemia SNOMED Code(s): 48988168 ICD Code: E87.6 - HYPOKALEMIA Status: Acute Current Visit: Yes (7) CKD (chronic kidney disease) SNOMED Code(s): 957800567 ICD Code: N18.9 - CHRONIC KIDNEY DISEASE, UNSPECIFIED Status: Chronic Current Visit: Yes Qualifiers: Chronic kidney disease stage: stage 3 (moderate) Chronic kidney disease stage 3 subtype: unspecified whether 3a or 3b Qualified Code(s): N18.30 - Chronic kidney disease, stage 3 unspecified (8) Anemia SNOMED Code(s): 399201126 ICD Code: D64.9 - ANEMIA, UNSPECIFIED Status: Acute Current Visit: No Qualifiers: Anemia type: unspecified type Qualified Code(s): D64.9 - Anemia, unspecified (9) Concussion SNOMED Code(s): 713534008 ICD Code: S06.0X9A - CONCUSSION W LOSS OF CONSCIOUSNESS OF UNSP DURATION, INIT Status: Acute Current Visit: No Qualifiers: Encounter type: initial encounter Loss of consciousness presence/duration: with LOC of unspecified duration Qualified Code(s): S06.0X9A - Concussion with loss of consciousness of unspecified duration, initial encounter (10) Dementia SNOMED Code(s): 56924391 ICD Code: F03.90 - UNSPECIFIED DEMENTIA WITHOUT BEHAVIORAL DISTURBANCE Status: Chronic Current Visit: No Qualifiers: Dementia type: unspecified type Dementia behavioral disturbance: without behavioral disturbance Qualified Code(s): F03.90 - Unspecified dementia without behavioral disturbance (11) Hyperlipidemia SNOMED Code(s): 01258682 ICD Code: E78.5 - HYPERLIPIDEMIA, UNSPECIFIED Status: Chronic Current Visit: No Qualifiers: Hyperlipidemia type: unspecified Qualified Code(s): E78.5 - Hyperlipidemia, unspecified (12) Lumbar spinal stenosis SNOMED Code(s): 47449993 ICD Code: M48.061 - SPINAL STENOSIS, LUMBAR REGION WITHOUT NEUROGENIC PREMA Status: Chronic Current Visit: No Qualifiers: Neurogenic claudication status: without neurogenic claudication Qualified Code(s): M48.061 - Spinal stenosis, lumbar region without neurogenic claudication (13) Rheumatoid arthritis SNOMED Code(s): 39377566 ICD Code: M06.9 - RHEUMATOID ARTHRITIS, UNSPECIFIED Status: Chronic Current Visit: No Qualifiers: Rheumatoid arthritis location: unspecified site Rheumatoid factor presence: unspecified presence Qualified Code(s): M06.9 - Rheumatoid arthritis, unspecified - Patient Summary/Data Operative Procedure(s) Performed: none Complications: none Consults: Consultations 03/26/20 10:00 Consult to Physical Therapy [PT Evaluation and Treatment] [CONS] Routine Labs Pending at D/C: none Recommended Follow-up Testing/Procedures: none Planned Operative Procedure(s) after DC: none Hospital Course: She was admitted to [facility] and evaluated for the cause of her sepsis. A u/a was negative. Her chest x-ray did show bilateral infiltrates so she was diagnosed with pneumonia. She did have a positive COVID test on initial admission but she has not had symptoms for that besides a fever. She was given IV fluids and IV antibiotics. Her labs progressively improved and her IV fluids were titrated in order to appropriately correct her sodium. Her sodium has now been normal x 2 days. She has had some hypokalemia as well, which has been corrected with IV potassium. Her antibiotic course was completed IV due to significant difficulty with swallowing. Her mentation has progressively improved as well and she is near her baseline. She has still not been able to swallow and is still very weak. Given no availability of speech therapy at [facility], plan is to transition to the [facility] center for further rehabilitation since it is felt PT/OT will not be effective if she is not also able to start returning to a more normal nutritional status. Patient's daughter has been involved and is aware of this plan. - Discharge Plan *PRESCRIPTION DRUG MONITORING PROGRAM REVIEWED*: No *COPY OF PRESCRIPTION DRUG MONITORING REPORT IN PATIENT DON: No Home Medications: Home Meds Albuterol [Proventil HFA] 2 inh PO Q6HR PRN 03/16/20 [History] Aspirin 81 mg PO DAILY 03/16/20 [History] Calc/D3/Mag/Zn/[place] [Calcium 600 MG Plus Vit D] 1 tab PO BID 03/16/20 [History] Lactobacillus Combination No.4 [Probiotic] 1 cap PO DAILY 03/16/20 [History] Latanoprost/Pf [Latanoprost 0.005% Eye Drop] 1 drop EYEBOTH BEDTIME 03/16/20 [History] Multivitamin [Multivitamins] 1 tab PO DAILY 03/16/20 [History] atorvaSTATin [Lipitor] 40 mg PO BEDTIME 03/16/20 [History] calcium polycarbophiL [Fibercon] 625 mg PO BID 03/16/20 [History] hydrOXYzine HCL [hydrOXYzine] 25 mg PO DAILY@1800 03/16/20 [History] Acetaminophen [Tylenol] 650 mg PO Q4H PRN tablet 04/02/20 [Rx] - Discharge Summary/Plan Comment DC Time >30 min.: No - General Info Date of Service: 04/02/20 Subjective Update: 74 yo female hospital day #8 for sepsis and hypernatremia. Patient is resting comfortably in bed this morning. She denies any concerns. - Review of Systems Systems Review Comment: Patient refuses to answer questions this morning. - Patient Data Vitals - Most Recent: Last Vital Signs Temp 36.9 C 04/02/20 06:00 Pulse 102 H 04/02/20 06:00 Resp 19 04/02/20 06:00 BP 146/66 H 04/02/20 06:00 Pulse Ox 98 04/02/20 06:00 Weight - Most Recent: 72.802 kg I&O - Last 24 hours: Intake & Output 04/01/20 04/01/20 04/02/20 14:59 22:59 06:59 Intake Total 0 Balance 0 Lab Results - Last 24 hrs: Laboratory Results - last 24 hr 04/01/20 04/01/20 Range/Units 06:14 06:14 WBC 8.8 (4.0-10.0) x10^3/uL RBC 3.23 L (4.00-5.50) x10^6/uL Hgb 9.5 L (12.0-16.0) g/dL Hct 28.6 L (33.0-47.0) % MCV 88.5 (78.0-93.0) fL MCH 29.4 (26.0-32.0) pg MCHC 33.2 (32.0-36.0) g/dL RDW Coeff of Romero 13.0 (10.0-15.0) % Plt Count 187 (130-400) x10^3/uL Neut % (Auto) 80.6 H (50.0-80.0) % Lymph % (Auto) 11.7 L (25.0-50.0) % [place] % (Auto) 7.0 (2.0-11.0) % Eos % (Auto) 0.6 (0.0-4.0) % Baso % (Auto) 0.1 L (0.2-1.2) % Sodium 132 L (136-145) mmol/L Potassium 2.9 L* (3.5-5.1) mmol/L Chloride 99 (98-107) mmol/L Carbon Dioxide 24 (21-32) mmol/L Anion Gap 11.9 (10-20) mmol/L BUN 11 (7-18) mg/dL Creatinine 0.9 (0.55-1.02) mg/dL Est Cr Clr Drug Dosing 61.10 mL/min Estimated GFR (MDRD) > 60 Glucose 117 H (74-106) mg/dL Calcium 9.0 (8.5-10.1) mg/dL Med Orders - Current: Current Medications Acetaminophen (Tylenol) 650 mg PO Q4H PRN PRN Reason: Pain (Mild 1-3)/fever Acetaminophen (Tylenol) 650 mg RECTAL Q4H PRN PRN Reason: Fever Last Admin: 03/29/20 11:44 Dose: 650 mg Documented by: Ascorbic Acid (Vitamin C) 1,000 mg PO BID [facility] Last Admin: 04/01/20 20:14 Dose: Not Given Documented by: Aspirin (Aspirin) 81 mg PO DAILY [facility] Last Admin: 04/01/20 07:58 Dose: Not Given Documented by: Atorvastatin Calcium (Lipitor) 40 mg PO BEDTIME [facility] Last Admin: 04/01/20 20:14 Dose: Not Given Documented by: Calcium Polycarbophil (Fibercon) 625 mg PO BID [facility] Last Admin: 04/01/20 20:14 Dose: Not Given Documented by: Cholecalciferol (Vitamin D3) 20 mcg PO DAILY [facility] Last Admin: 04/01/20 07:58 Dose: Not Given Documented by: Enoxaparin Sodium (Lovenox) 30 mg SUBCUT Q24H [facility] Last Admin: 04/01/20 13:46 Dose: 30 mg Documented by: Hydroxyzine HCl (Atarax) 25 mg PO DAILY@1800 [facility] Last Admin: 04/01/20 17:17 Dose: Not Given Documented by: Lactobacillus Rhamnosus (Culturelle) 1 cap PO DAILY [facility] Last Admin: 04/01/20 07:58 Dose: Not Given Documented by: Latanoprost (Xalatan 0.005% Ophth Soln) 0 ml EYEBOTH BEDTIME [facility] Last Admin: 04/01/20 20:15 Dose: 1 drop Documented by: Zinc Sulfate (Zincate) 220 mg PO DAILY [facility] Last Admin: 04/01/20 07:58 Dose: Not Given Documented by: Discontinued Medications Azithromycin (Zithromax) 500 mg PO ONETIME ONE Stop: 03/26/20 11:16 Last Admin: 03/26/20 12:01 Dose: Not Given Documented by: Azithromycin (Zithromax) 250 mg PO DAILY [facility] Last Admin: 03/28/20 10:38 Dose: Not Given Documented by: Ceftriaxone Sodium (Rocephin) 1 gm IVPUSH DAILY [facility] Last Admin: 03/31/20 09:11 Dose: 1 gm Documented by: Enoxaparin Sodium (Lovenox) 40 mg SUBCUT DAILY@1200 [facility] Enoxaparin Sodium (Lovenox) 30 mg SUBCUT Q24H [facility] Last Admin: 03/28/20 12:01 Dose: 30 mg Documented by: Sodium Chloride (Normal Saline) 1,000 mls @ 100 mls/hr IV ASDIRECTED [facility] Last Admin: 03/26/20 23:46 Dose: 100 mls/hr Documented by: Azithromycin 500 mg/ Sodium (Chloride) 250 mls @ 250 mls/hr IV STAT ONE Stop: 03/26/20 13:28 Last Admin: 03/26/20 13:16 Dose: 250 mls/hr Documented by: Potassium Chloride/Sodium Chloride (1/2 Ns With 20 Meq Kcl) 1,000 mls @ 100 mls/hr IV ASDIRECTED [facility] Last Admin: 03/27/20 09:09 Dose: 100 mls/hr Documented by: Potassium Chloride/Dextrose (D5w With 20 Meq Kcl) 1,000 mls @ 75 mls/hr IV ASDIRECTED [facility] Dextrose/Water (Dextrose 5% In Water) 1,000 mls @ 75 mls/hr IV ASDIRECTED [facility] Last Admin: 04/01/20 00:55 Dose: 75 mls/hr Documented by: Potassium Chloride (Kcl 20 Meq In Water 50 Ml) 50 mls @ 12.5 mls/hr IV BID@0800,1800 [facility] Last Admin: 03/29/20 11:37 Dose: Not Given Documented by: Azithromycin 500 mg/ Sodium (Chloride) 250 mls @ 250 mls/hr IV DAILY [facility] Stop: 04/01/20 08:46 Last Admin: 04/01/20 08:59 Dose: 250 mls/hr Documented by: Potassium Chloride 20 meq/ (Premix) 50 mls @ 25 mls/hr IV Q2H [facility] Stop: 03/30/20 11:57 Last Admin: 03/30/20 10:40 Dose: 25 mls/hr Documented by: Potassium Chloride 20 meq/ (Premix) 0 mls @ 50 mls/hr IV ONETIME ONE Stop: 03/31/20 09:39 Last Admin: 03/31/20 10:42 Dose: Not Given Documented by: Potassium Chloride 10 meq/ (Premix) 50 mls @ 50 mls/hr IV Q1H [facility] Stop: 03/31/20 11:59 Last Admin: 03/31/20 12:05 Dose: 50 mls/hr Documented by: Potassium Chloride 20 meq/ (Premix) 50 mls @ 50 mls/hr IV ONETIME ONE Stop: 04/01/20 08:36 Last Admin: 04/01/20 07:54 Dose: 50 mls/hr Documented by: Zinc Gluconate (Zinc) 200 mg PO DAILY [facility] Last Admin: 03/28/20 10:05 Dose: Not Given Documented by: Zinc Gluconate (Zinc) 50 mg PO DAILY [facility] - Exam General: Reports: Alert, Cooperative, No Acute Distress HEENT: Reports: Mucous Membr. Moist/[place] Neck: Reports: Supple, Trachea Midline, No Thyromegaly. Denies: Lymphadenopathy Lungs: Reports: Clear to Auscultation, Normal Respiratory Effort Cardiovascular: Reports: Regular Rate, Regular Rhythm, No Murmurs GI/Abdominal Exam: Normal Bowel Sounds, Soft, Non-Tender, No Organomegaly, No Distention, No Mass Extremities: Non-Tender, No Pedal Edema, Normal Capillary Refill Skin: Reports: Warm, Dry, Intact Neurological: Reports: No New Focal Deficit
[2020-04-02 07:27] LABS: CHLORIDE,CL 101 mmol/L (98-107); SODIUM,NA 133 mmol/L (136-145)
== END 2020-04-02 08:45 | DRG 871 ==
LOC: VM.MS 08:29
PROVIDERS: ADMIT Family Medicine; ATTEND Family Medicine
PROC: 8E0ZXY6 Isolation (ICD-10-PCS; principal; 2020-03-26)
DX: A41.89 Other specified sepsis (principal); U07.1 COVID-19; J12.89 Other viral pneumonia; S06.0X9A Concussion with loss of consciousness of unspecified duration, initial encounter; E87.0 Hyperosmolality and hypernatremia; N39.0 Urinary tract infection, site not specified; Z66 Do not resuscitate; N17.9 Acute kidney failure, unspecified; D68.51 Activated protein C resistance; R65.20 Severe sepsis without septic shock; E87.6 Hypokalemia; N18.30 Chronic kidney disease, stage 3 unspecified; D64.9 Anemia, unspecified; F03.90 Unspecified dementia, unspecified severity, without behavioral disturbance, psychotic disturbance, mood disturbance, and anxiety; E78.5 Hyperlipidemia, unspecified; M48.061 Spinal stenosis, lumbar region without neurogenic claudication; M06.9 Rheumatoid arthritis, unspecified; Z79.82 Long term (current) use of aspirin; Z79.899 Other long term (current) drug therapy; Z88.8 Allergy status to other drugs, medicaments and biological substances; M81.0 Age-related osteoporosis without current pathological fracture; M48.00 Spinal stenosis, site unspecified; E78.00 Pure hypercholesterolemia, unspecified; N18.9 Chronic kidney disease, unspecified; M19.90 Unspecified osteoarthritis, unspecified site; G30.9 Alzheimer's disease, unspecified; F02.80 Dementia in other diseases classified elsewhere, unspecified severity, without behavioral disturbance, psychotic disturbance, mood disturbance, and anxiety; Z90.89 Acquired absence of other organs; Z90.710 Acquired absence of both cervix and uterus; Z87.891 Personal history of nicotine dependence
CPT/HCPCS: 36415; 71045; 80048; 83605; 85025; 86140; 87040; 97110-GP; 97530-GP; A9270-GY; J0456; J0696; J1650; J3480; J7030; J7050; J7060